=== PATIENT | female | born 1965 | race Caucasian/White ===

== ENCOUNTER 2017-03-12 05:47 | Outpatient (CLI) | payer OTHER ==
[~2017-03-12] VITALS: Ht 167.6 cm; Wt 86.2 kg
[~2017-03-12 05:47] MED LIST: DCS100C PO; ESCI20TA2 PO; HYDR-3583 PO; LUTERA PO; WHEA730P PO
[2017-03-12] MEDS ORDERED: CITA40TA19 PO (15:19)
== END 2017-03-12 15:22 ==
LOC: PREOP 05:47
PROVIDERS: ATTEND Internal Medicine
DX: Z01.818 Encounter for other preprocedural examination (principal); Z12.11 Encounter for screening for malignant neoplasm of colon

== ENCOUNTER 2017-03-14 09:13 | Day surgery (SDC) | payer OTHER ==
[~2017-03-14] VITALS: Ht 167.6 cm; Wt 86.2 kg
[~2017-03-14 09:13] MED LIST changes: +CITA40TA19 PO
[2017-03-14] MEDS ORDERED: 1/2 NS IV SOLUTION 1,000 ML IV STA (09:18)
[2017-03-14] MEDS ORDERED: FLUMAZENIL (ROMAZICON) 0.1 MG/ML 5 ML VIAL INJ PRN (09:30)
[2017-03-14] MEDS ORDERED: LIDOCAINE JELLY 2% (XYLOCAINE) 5 ML TUBE MM PRN (09:30)
[2017-03-14] MEDS ORDERED: NALOXONE 0.4 MG/ML 1 ML (NARCAN) VIAL IVP PRN (09:30)
[2017-03-14 09:40] VITALS: BP 108/65
--- NOTE | 2017-03-14 09:43 | Pre-Op Note & Conscious Sedat ---
Pre-Operative Progress Note H&P Reviewed The H&P was reviewed, patient examined and no changes noted. Date H&P Reviewed: March 14, 2017 Time H&P Reviewed: 09:43 Conscious Sedation Pre-Proced ASA Class: 2 Airway Mallampati Classification: (port gamble appropriate class) I. II. III, IV Lungs Heart ASA score ASA 1: a normal healthy patient ASA 2: a patient with a mild systemic disease (mid diabetes, controlled hypertension, obesity ASA 3: a patient with a severe systemic disease that limits activity (angina , COPD, prior Myocardial infarction) ASA 4: a patient with an incapacitating disease that is a constant threat to life (CHF, renal failure) ASA 5: a moribund patient not expected to survive 24 hrs. (ruptured aneurysm) ASA 6: a declared brain patient whose organs are being harvested. For emergent operations, add the letter E after the classification Grade 2 Sedation Plan: Analgesia, Amnesia, Plan communicated to team members, Discussed options with patient/fam, Discussed risks with patient/fam Note The patient is an appropriate candidate to undergo the planned procedure, sedation, and anesthesia. The patient immediately re-assessed prior to indication. ADAN BARTHOLOMEW MD March 14, 2017 09:43
[2017-03-14] MEDS ORDERED: MIDAZOLAM 2 MG/2 ML (VERSED) VIAL ONE ×3 (09:50)
[2017-03-14] MEDS ORDERED: fentaNYL INJECTION 100 MCG/2 ML AMP ONE (09:50)
[2017-03-14] MEDS ORDERED: LIDOCAINE JELLY 2% (XYLOCAINE) 5 ML TUBE ONE (09:51)
[2017-03-14] MEDS: fentaNYL INJECTION 100 MCG/2 ML AMP IVP PRN ×2 (10:03→10:15)
[2017-03-14] MEDS: MIDAZOLAM 2 MG/2 ML (VERSED) VIAL IVP PRN ×2 (10:05→10:20)
[2017-03-14 10:35] VITALS: BP 126/74
[2017-03-14 11:05] VITALS: BP 116/71
[2017-03-14 11:25] VITALS: BP 116/71
--- NOTE | 2017-03-14 14:43 | OPERATIVE REPORT ---
DATE OF SERVICE: COLONOSCOPY SUMMARY INDICATION FOR THE PROCEDURE: Screening colonoscopy. DESCRIPTION OF PROCEDURE: The patient was placed in the left lateral decubitus position. Prior to undergoing colonoscopy, digital rectal evaluation performed. Anal sphincter tone was normal and perianal reflex was intact. Digital evaluation was compatible with an anterior rectocele. No other abnormalities were noted, visual inspection, anal canal or digital rectal vault. The colonoscope was then inserted into the rectum and under direct visualization, advanced to the cecum. The cecum was identified by identification of the S valve and cecal strap. Photograph documentation was obtained. Under careful observation, the colonoscope was withdrawn. FINDINGS: There was no evidence for internal, external hemorrhoids. Present in the distal rectum was a diminutive hyperplastic-appearing polyp measuring about 2 mm in size. It was photographed and biopsied and ablated with no subsequent blood loss. The remainder of the rectum was unremarkable. One small sigmoid diverticulum was present without evidence for haustral hypertrophy or inflammatory change. A sigmoid colonoscope that was unremarkable. The descending colon, transverse colon, ascending colon and cecum were unremarkable. ASSESSMENT: 1. Diminutive hyperplastic-appearing polyp was removed from the rectum via hot forceps with no evidence for bleeding. As long as there is no surprise on the pathology report, we will advocate consideration for repeat screening colonoscopy in 10 years. 2. One small diverticulum was noted in the sigmoid colon, and digital rectal evaluation was compatible with an anterior rectocele. The patient reports no symptoms. I thank you for the referral. Job ID: [id number] DocumentID: [id number] Dictated Date: 03/14/2017 11:04:21 Blower And Compressor Assembler Date: 03/14/2017 13:21:30 Dictated By: ADAN BARTHOLOMEW MD [facility]
--- NOTE | 2017-03-19 23:11 | HISTORY AND PHYSICAL ---
DATE OF SERVICE: 03/14/2017 HISTORY OF PRESENT ILLNESS: The patient is a 51-year-old white female referred for screening colonoscopy by Dr. Jordan. She is deemed to be of average risk as she is not aware of any family history for colon cancer or colon polyps. She reports that she has been feeling well and has noted no melena or bright red blood per rectum. She denies abdominal pain. PAST MEDICAL HISTORY: Significant for hepatitis C with virologic cure post interferon-based therapy a little over 4 years ago. She reports no other significant past medical history. PAST SURGICAL HISTORY: She underwent hemorrhoidectomy in 2010, uterine ablation for dysfunctional bleeding in 2011, she had a ganglionic cyst removed in 1997 and fibroid adenoma removal from the right breast in 1997. She underwent in 1987 and liver biopsy in 2012. 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 She reports no past smoking history and rare to moderate alcohol consumption. ALLERGIES: AMOXICILLIN IN THE FORM OF RASH AND NOT ANAPHYLAXIS. FAMILY HISTORY: Father has history of heart disease and stroke. She has 1 sister with diabetes and her father also had diabetes. Mother has history of hypertension. Again no family history for colorectal carcinoma. PHYSICAL EXAMINATION: GENERAL: White female, alert, well kempt, in no acute distress. VITAL SIGNS: Blood pressure 116/74. CHEST: Clear. CARDIOVASCULAR: Regular rate and rhythm without murmur, S3 or S4. ABDOMEN: Soft, supple without mass, organomegaly or tenderness. EXTREMITIES: Reveal no cyanosis, clubbing or edema. HEENT: Oropharyngeal examination reveals Mallampati class I configuration with no erythema and good dentition. ASSESSMENT: The patient is set up for screening colonoscopy on 03/14/2017. Prep instructions and Suprep kit were given and questions were answered. Electronic medical record was reviewed. CARE TIME SPENT: I spent 45 minutes of my time with another 15 minutes of staff time setting up colonoscopy and going over prep instructions. I thank you for the referral of this pleasant lady. Job ID: [id number] DocumentID: [id number] Dictated Date: 03/07/2017 10:59:12 Data Processing Control Clerk Date: 03/07/2017 11:25:17 Dictated By: ADAN BARTHOLOMEW MD
== END 2017-03-14 11:25 | disposition home or self-care (01) ==
LOC: ENDO 09:13
PROVIDERS: ATTEND Internal Medicine
DX: Z12.11 Encounter for screening for malignant neoplasm of colon (principal); K62.1 Rectal polyp; K57.30 Diverticulosis of large intestine without perforation or abscess without bleeding; Z86.19 Personal history of other infectious and parasitic diseases
CPT/HCPCS: 88305

== ENCOUNTER 2017-05-04 15:58 | Emergency (ER) | payer OTHER ==
[~2017-05-04] VITALS: Ht 167.6 cm; Wt 86.2 kg
[2017-05-04] MEDS ORDERED: morphine INJ 10 MG/ML 1ML (SYR OR VIAL) ONE (15:59)
--- NOTE | 2017-05-04 16:14 | ED Fall/Injury ---
General Chief Complaint: Trauma-Non Activation Stated Complaint: FALL/R ARM INJ Source: patient Exam Limitations: no limitations History of Present Illness Time seen by provider: 16:11 Initial Comments ER with reports of a fall. Patient was working in a closet that she and her are working on remodeling. She fell through it following a total of 6 feet After falling through the floor into the crawl space of the house. She has some abrasions to the right lateral thigh and lower leg into the medial left lower leg. She has an abrasion to the right elbow as well as pain and deformity to the right upper arm. She has a small abrasion to the right lateral ear. Denies neck pain or loss of consciousness. She recalls all events. Occurred: just prior to arrival Severity: moderate Injuries/Pain Location: upper extremity Context: other (fell through the floor) Loss of Consciousness: no loss of consciousness Allergies and Home Medications Allergies Coded Allergies: Amoxicillin (Unverified Allergy, HIVES/SWELLING, 10/24/10) Home Medications Citalopram Hydrobromide 40 Mg Tablet, 40 MG PO DAILY, (Reported) Docusate Sodium 100 Mg Capsule, 100 MG PO BID for 30 Days Prescribed by: SLOAN CARPENTER on 05/04/171743 Oxycodone HCl/Acetaminophen 1 Each Tablet, 1 EACH PO Q4H PRN for PAIN-MODERATE TO SEVERE, #60 Prescribed by: SLOAN CARPENTER on 05/04/171743 Constitutional: see HPI Eyes: No Symptoms Reported Ears, Nose, Mouth, Throat: no symptoms reported Respiratory: no symptoms reported Cardiovascular: no symptoms reported Genitourinary: no symptoms reported Musculoskeletal: see HPI Skin: no symptoms reported Psychiatric/Neurological: No Symptoms Reported Past Vochtne-Pddple-Rmgppr Hx Patient Social History Recent Foreign Travel: No Contact w/Someone Who Travel: No Recent Hopitalizations: No Seasonal Allergies Seasonal Allergies: Yes Surgeries HX Surgeries: Yes (UTERINE ABLATION, ORAL SX, CYST FROM WRIST, HEMORRHOIDECTOMY , BREAST) Surgeries: Section Respiratory Hx Respiratory Disorders: Yes Respiratory Disorders: Sleep Apnea Cardiovascular Hx Cardiac Disorders: No Neurological Hx Neurological Disorders: No Reproductive System Hx Reproductive Disorders: No Genitourinary Hx Genitourinary Disorders: No Gastrointestinal Hx Gastrointestinal Disorders: No Musculoskeletal Hx Musculoskeletal Disorders: No Endocrine Hx Endocrine Disorders: No HEENT HX ENT Disorders: No Cancer Hx Cancer: No Psychosocial Hx Psychiatric Problems: No Integumentary HX Skin/Integumentary Disorder: No Blood Transfusions Hx Blood Disorders: No Physical Exam Vital Signs Vital Sign - Last 12Hours 05/04/17 16:00 Temp 97.6 Pulse 82 Resp 18 B/P (MAP) 124/72 Pulse Ox 98 O2 Delivery Room Air Capillary Refill : General Appearance: WD/WN, no apparent distress HEENT: PERRL/EOMI, normal ENT inspection, other (small actively bleeding laceration to the right ear) Neck: non-tender, full range of motion, No tender lateral, No tender midline, other (no neck pain) Cardiovascular: regular rate, rhythm, no murmur Respiratory: lungs clear, normal breath sounds, no respiratory distress, no accessory muscle use Gastrointestinal: normal bowel sounds, non tender, soft, No guarding, No rebound, No tenderness, other (no sign of chest or abdomen injury. No abrasions or ecchymosis or erythema. No tenderness to palpation.) Extremities: normal capillary refill, other (Limited range of motion secondary to pain swelling and deformity to the right upper arm. She remains neurovascularly intact distal to this with a strong radial pulse, normal sensation in the fingertips, capillary refill of the fingertips less than 3 seconds inability to flex and extend the fingertips. She complains of pain to the right middle finger but there is no deformity or swelling. Denies pain to the rest of the hand of the wrist. The right forearm is without significant pain. There is an abrasion to the right elbow. She has abrasions to the bilateral lower extremities. To the medial aspect of the left lower leg and the lateral aspect of the right lower leg and right thigh there are abrasions. However she is ambulatory to room 6.) Neurologic/Psychiatric: alert, normal mood/affect, oriented x 3 [place] Coma Score Best Eye Response: (4) Open Spontaneously Best Verbal Response: (5) Oriented Best Motor Response: (6) Obeys Commands Bobbi Total: 15 Progress/Results/Core Measures Results/Orders Lab Results Laboratory Tests Test 05/04/17 16:08 Range/Units White Blood Count 6.9 4.3-11.0 10^3/uL Red Blood Count 4.78 4.35-5.85 10^6/uL Hemoglobin 13.1 11.5-16.0 G/DL Hematocrit 40 35-52 % Mean Corpuscular Volume 85 80-99 FL Mean Corpuscular Hemoglobin 27 25-34 PG Mean Corpuscular Hemoglobin Concent 32 32-36 G/DL Red Cell Distribution Width 13.3 10.0-14.5 % Platelet Count 241 130-400 10^3/uL Mean Platelet Volume 10.5 H 7.4-10.4 FL Sodium Level 139 135-145 MMOL/L Potassium Level 3.9 3.6-5.0 MMOL/L Chloride Level 105 98-107 MMOL/L Carbon Dioxide Level 21 21-32 MMOL/L Anion Gap 13 5-14 MMOL/L Blood Urea Nitrogen 21 H 7-18 MG/DL Creatinine 0.82 0.60-1.30 MG/DL Estimat Glomerular Filtration Rate > 60 BUN/Creatinine Ratio 26 Glucose Level 116 H 70-105 MG/DL Calcium Level 9.4 8.5-10.1 MG/DL Total Bilirubin 0.2 0.1-1.0 MG/DL Aspartate Amino Transf (AST/SGOT) 23 5-34 U/L Alanine Aminotransferase (ALT/SGPT) 25 0-55 U/L Alkaline Phosphatase 68 40-136 U/L Total Protein 7.6 6.4-8.2 GM/DL Albumin 4.2 3.2-4.5 GM/DL My Orders Orders - SLOAN CARPENTER APRN Morphine Injection (Morphine Injection (05/04/17 15:59) Chest 1 View, Ap/Pa Only (05/04/17 16:09) Humerus, Right, 2 Views (05/04/17 16:09) Dipht,Pertuss(Acell),Tet Adult (Boostrix (05/04/17 16:15) Morphine Injection (Morphine Injection (05/04/17 16:15) Morphine Injection (Morphine Injection (05/04/17 16:15) Cbc No Diff (05/04/17 16:19) Saline Lock/Iv-Start (05/04/17 16:19) Comprehensive Metabolic Panel (05/04/17 16:19) Morphine Injection (Morphine Injection (05/04/17 16:45) Forearm, Right, 2 Views (05/04/17 16:51) Rx-Oxycodone/Apap 5-325 Mg (Rx-Percocet (05/04/17 17:00) Fentanyl Injection (Sublimaze Injection (05/04/17 17:00) Medications Given in ED Current Medications Medications Dose Ordered Sig/Anders Route Start Time Stop Time Status Last Admin Dose Admin Diphtheria/ Tetanus/Acell Pertussis 0.5 ml ONCE ONCE IM 05/04/17 16:15 05/04/17 16:16 DC 05/04/17 16:21 0.5 ML Fentanyl Citrate 75 mcg ONCE ONCE IVP 05/04/17 17:00 05/04/17 17:01 DC 05/04/17 17:02 75 MCG Morphine Sulfate 5 mg ONCE ONCE IVP 05/04/17 16:15 05/04/17 16:16 DC 05/04/17 16:05 5 MG Morphine Sulfate 5 mg ONCE ONCE IVP 05/04/17 16:15 05/04/17 16:16 DC 05/04/17 16:19 5 MG Morphine Sulfate 5 mg ONCE ONCE IVP 05/04/17 16:45 05/04/17 16:46 DC 05/04/17 16:35 5 MG Oxycodone/ Acetaminophen 1 ea Q4H PRN PO 05/04/17 17:00 05/04/17 17:39 1 EA Vital Signs/I&O Vital Sign - Last 12Hours 05/04/17 16:00 Temp 97.6 Pulse 82 Resp 18 B/P (MAP) 124/72 Pulse Ox 98 O2 Delivery Room Air Diagnostic Imaging Diagonstic Imaging: Xray Plain Films/CT/US/NM/MRI: chest Comments O NAME: CONSTANCE LOPES [facility] REC#: [id number] PT STATUS: REG ER : 1965 PHYSICIAN: SLOAN CARPENTER APRN ADMIT DATE: 05/04/17/ER Draft Date of Exam:05/04/17 CHEST 1 VIEW, AP/PA ONLY EXAMINATION: Portable erect AP chest at 4:20 p.m. INDICATION: Trauma to right humerus. COMPARISON: There are no prior studies available for comparison. FINDINGS: The heart size is within normal limits. The lungs are clear. There is no evidence for failure, pneumonia, or for a pleural effusion. There is no sign of pneumothorax or a pulmonary contusion either. The mediastinum is not widened. The osseous structures are intact. The fracture of the mid shaft of the right humerus seen on the right humerus exam performed in conjunction with this study is not included on this exam. IMPRESSION: There is no evidence for an acute cardiopulmonary abnormality. Dictated on workstation # [id number] Dict: 05/04/17 1639 Trans: 05/04/17 1656 [id number] Interpreted by: ROSANNE DE LEÓN MD Electronically signed by: NAME: CONSTANCE LOPES [facility] REC#: [id number] PT STATUS: REG ER : 1965 PHYSICIAN: SLOAN CARPENTER BRAND ADVISOR ADMIT DATE: 05/04/17/ER Draft Date of Exam:05/04/17 HUMERUS, RIGHT, 2 VIEWS INDICATION: Fall, right arm pain. COMPARISON: None. EXAMINATION: Two views of the right humerus were obtained. FINDINGS: Minimally displaced midshaft humeral fracture. Joint spaces are normal. No foreign body. IMPRESSION: Mid right shaft humeral fracture with some displacement. Dictated on workstation # [id number] Dict: 05/04/17 1639 Trans: 05/04/17 1700 [facility] [id number] Interpreted by: JOSE OJEDA Electronically signed by: Departure Communication Progress Notes I did discuss the case with Dr. Nance who is on-call for orthopedic surgery. He agrees with a sugar tong splint and sling and follow-up with him in the office. Impression Impression: Primary Impression: Transverse fracture of shaft of humerus Disposition: 01 HOME, SELF-CARE Condition: Stable Departure-Patient Inst. Decision time for Depature: 16:56 Referrals: QUE WELLS MD, HOLLY A MD (PCP/Family) Primary Care Physician CARMEN ESTES MD,MARLEN DOHERTY MD, ROBERT F DO TOMA, PAUL W DO ZAFUTA, MICHAEL P MD Patient Instructions: Upper Arm Fracture Add. Discharge Instructions: 1. Use an ice pack to the upper arm 2-3 hours at a time then off for 30 minutes to an hour for the next 3 days 2. You'll be much more comfortable if he sleep in a somewhat upright position such as in a recliner or with several pillows behind you in bed 3. I spoke with the orthopedic surgeon Dr. Nance today and he would like you to call his office tomorrow morning to make an appointment to be seen preferably within the next week whenever they can determine 4. Keep the splint on at all times and keep it dry at all times. You may take the sling (blue Velcro piece) off today and then put a trash bag over the arm taping and around the upper arm so that the splint does not get water on it. 5. Return to ER for any intolerable pain, tingling or loss of sensation of the fingertips or any other concerns 6. Take the Colace (docusate sodium) stool softener one capsule 2 times a day. The pain medication can be constipating. If you find your self constipated despite taking stool softener, purchase MiraLAX [id number] at any pharmacy and use either one packet or 1 Capful dissolved in a large glass of water daily for laxative purposes. All discharge instructions reviewed with patient and/or family. Voiced understanding. Scripts Oxycodone HCl/Acetaminophen (Percocet 5-325 mg Tablet) 1 Each Tablet 1 EACH PO Q4H Y for PAIN-MODERATE TO SEVERE, #60 TAB Prov: SLOAN CARPENTER APRN 05/04/17 Docusate Sodium (Colace) 100 Mg Capsule 100 MG PO BID for 30 Days, CAP Prov: SLOAN CARPENTER APRN 05/04/17 Work/School Note: Work Release Form Date Seen in the Emergency Department: May 04, 2017 Return to Work: May 10, 2017 Restrictions: Need Release from Doctor SLOAN CARPENTER APRN May 04, 2017 16:14
[2017-05-04] MEDS ORDERED: TETANUS,DIPTH,PERTUSS P/F (BOOSTRIX) 0.5 ML VIAL IM ONE (16:15)
[2017-05-04] MEDS ORDERED: morphine INJ 10 MG/ML 1ML (SYR OR VIAL) IVP ONE ×3 (16:15→16:45)
[2017-05-04 16:30] LABS: MEAN PLATELET VOLUME 10.5 FL (7.4-10.4); RED BLOOD COUNT 4.78 10^6/uL (4.35-5.85); RED CELL DISTRIBUTION WIDTH 13.3 % (10.0-14.5); WHITE BLOOD COUNT 6.9 10^3/uL (4.3-11.0)
[2017-05-04 16:42] LABS: ALANINE AMINOTRANSFERASE 25 U/L (0-55); ALBUMIN 4.2 GM/DL (3.2-4.5); ANION GAP 13 MMOL/L (5-14); ASPARTATE AMINO TRANSFERASE 23 U/L (5-34); BILIRUBIN,TOTAL 0.2 MG/DL (0.1-1.0); BLOOD UREA NITROGEN 21 MG/DL (7-18); BUN/CREATININE RATIO 26; CALCIUM 9.4 MG/DL (8.5-10.1); CARBON DIOXIDE 21 MMOL/L (21-32); CHLORIDE 105 MMOL/L (98-107); CREATININE SERUM 0.82 MG/DL (0.60-1.30); GFR ESTIMATED > 60; GLUCOSE 116 MG/DL (70-105); POTASSIUM 3.9 MMOL/L (3.6-5.0); SODIUM 139 MMOL/L (135-145); TOTAL PROTEIN 7.6 GM/DL (6.4-8.2)
--- NOTE | 2017-05-04 16:56 | Diagnostic Imaging Report ---
EXAMINATION: Portable erect AP chest at 4:20 p.m. INDICATION: Trauma to right humerus. COMPARISON: There are no prior studies available for comparison. FINDINGS: The heart size is within normal limits. The lungs are clear. There is no evidence for failure, pneumonia, or for a pleural effusion. There is no sign of pneumothorax or a pulmonary contusion either. The mediastinum is not widened. The osseous structures are intact. The fracture of the mid shaft of the right humerus seen on the right humerus exam performed in conjunction with this study is not included on this exam. IMPRESSION: There is no evidence for an acute cardiopulmonary abnormality. Dictated by: Dictated on workstation # [id number]
[2017-05-04] MEDS ORDERED: fentaNYL INJECTION 100 MCG/2 ML AMP IVP ONE (17:00)
[2017-05-04] MEDS ORDERED: RX-OXYCODONE/APAP 5-325 MG #4 TAB PK PO PRN (17:00)
--- NOTE | 2017-05-04 17:01 | Diagnostic Imaging Report ---
INDICATION: Fall, right arm pain. COMPARISON: None. EXAMINATION: Two views of the right humerus were obtained. FINDINGS: Minimally displaced midshaft humeral fracture. Joint spaces are normal. No foreign body. IMPRESSION: Mid right shaft humeral fracture with some displacement. Dictated by: Dictated on workstation # [id number]
--- NOTE | 2017-05-04 17:19 | Diagnostic Imaging Report ---
EXAM: FOREARM, RIGHT, 2 VIEWS INDICATION: Fall 6 feet. COMPARISON: None. FINDINGS: No fracture or malalignment. Soft tissue shadows are unremarkable. IMPRESSION: Negative right forearm radiographs. Dictated by: Dictated on workstation # [id number]
[2017-05-04] MEDS ORDERED: DOCU-143 PO (17:44)
[2017-05-04] MEDS ORDERED: OXYC-197 PO (17:44)
[2017-05-04 17:51] VITALS: BP 158/74
== END 2017-05-04 17:53 | disposition home or self-care (01) ==
LOC: EDUNIT# 15:58 → ER 15:59
DX: S42.321A Displaced transverse fracture of shaft of humerus, right arm, initial encounter for closed fracture (principal); S70.311A Abrasion, right thigh, initial encounter; S80.812A Abrasion, left lower leg, initial encounter; S80.811A Abrasion, right lower leg, initial encounter; Z90.49 Acquired absence of other specified parts of digestive tract; Z98.890 Other specified postprocedural states; W13.3XXA Fall through floor, initial encounter; Y93.E9 Activity, other interior property and clothing maintenance; Y92.019 Unspecified place in single-family (private) house as the place of occurrence of the external cause
CPT/HCPCS: 29105; 36415; 71010; 73060; 73090; 80053; 85027; 90471; 90715; 96374; 96375

== ENCOUNTER → 2017-09-25 | Outpatient (CLI) | payer OTHER ==
[~2017-09-25] MED LIST changes: +DOCU-143 PO; +OXYC-197 PO
--- NOTE | 2017-09-26 11:05 | Diagnostic Imaging Report ---
EXAM: Bilateral screening mammogram 2D views with tomosynthesis COMPARISON: The current study was also evaluated with a Computer Aided Detection (CAD) system. INDICATION: Screening. No current complaints stated on the questionnaire. COMPARISON: 05/31/2016. FINDINGS: The breasts are composed of heterogeneously dense parenchyma which may decrease mammographic sensitivity. There is a focal asymmetry with architectural distortion seen along the medial aspect of the right breast. The left breast demonstrates no mass, architectural distortion or suspicious calcification. Benign-appearing scattered calcifications are seen. IMPRESSION: Focal compression views and ultrasound evaluation for focal asymmetry with architectural distortion of the medial aspect of the right breast recommended. BI-RADS 0. ACR BI-RADS Category 0: Incomplete. (Needs additional imaging evaluation). Result letter will be mailed to the patient. Note: At least 10% of breast cancer is not imaged by mammography. Dictated by: Dictated on workstation # [id number]
== END ==
LOC: RAD 08:20
PROVIDERS: ATTEND Nurse Practitioner
DX: Z12.31 Encounter for screening mammogram for malignant neoplasm of breast (principal)

== ENCOUNTER → 2017-10-01 | Outpatient (CLI) | payer OTHER ==
--- NOTE | 2017-10-01 09:05 | Diagnostic Imaging Report ---
EXAMINATION: Right breast diagnostic mammogram with tomography evaluation. CAD is utilized. The current study was also evaluated with a Computer Aided Detection (CAD) system. INDICATION: Focal asymmetry with architectural distortion in the upper medial aspect of the right breast. FINDINGS: There is persistent architectural distortion with compression magnification views with no defined underlying mass however seen. This is located in the upper medial aspect of the right breast. IMPRESSION: Persistent architectural distortion in the upper medial aspect of the right breast. Ultrasound evaluation pending. BI-RADS 0. ACR BI-RADS Category 0: Incomplete. (Needs additional imaging evaluation). Result letter will be mailed to the patient. Note: At least 10% of breast cancer is not imaged by mammography. Dictated by: Dictated on workstation # [id number]
--- NOTE | 2017-10-01 09:37 | Diagnostic Imaging Report ---
EXAMINATION: Right breast ultrasound. INDICATION: Architectural distortion in the upper medial aspect of the right breast. FINDINGS: At the 2 o'clock zone 5 cm from the nipple, there is an irregular hypoechoic mass with associated shadowing measuring 1.2 x 1.5 x 1 cm. There is no internal vascularity with color Doppler demonstrated. The other quadrants and retroareolar region of the right breast as well as the axilla were scanned with no other lesions identified. IMPRESSION: Suspicious mass in the right breast 2 o'clock zone measuring 1.5 cm in size. An ultrasound guided biopsy is recommended. The findings and recommendations were discussed personally with the patient just before this dictation. The report was faxed to the office of ZAHRA Hood, by JANETT@9:10 AM. ACR BI-RADS Category 4B: Intermediate suspicion of malignancy. Result letter will be mailed to the patient. Dictated by: Dictated on workstation # [id number]
== END ==
LOC: RAD 08:00
PROVIDERS: ATTEND Nurse Practitioner
DX: N64.89 Other specified disorders of breast (principal); N63.11 Unspecified lump in the right breast, upper outer quadrant
CPT/HCPCS: 76641

== ENCOUNTER → 2017-10-02 | Outpatient (CLI) | payer OTHER ==
[~2017-10-02] VITALS: Ht 167.6 cm; Wt 86.2 kg
[~2017-10-02] MED LIST changes: +LIDOCAINE 1% INJ 50 ML (XYLOCAINE) VIAL IJ ONE
[2017-10-02 07:58] VITALS: BP 124/64
--- NOTE | 2017-10-02 12:13 | Diagnostic Imaging Report ---
EXAM: Right breast ultrasound INDICATION: Hypoechoic lesion seen on ultrasound at the 2 o'clock zone and architectural distortion seen on mammography in preparation for biopsy. We started preparing for biopsy and I scanned the patient and asked her again if she had any trauma or procedure previously. Although she did not mention breast surgery when she was worked up with the diagnostic mammogram and ultrasound, at this time the patient indicated that she did have surgery in the upper medial aspect of the right breast. When examined there is a subtle skin scar seen at the site of surgery and this appears to match the area of abnormality. IMPRESSION: The patient now provided additional history of previous surgery in the upper medial aspect of the right breast. The area of abnormality at the 2 o'clock zone is favored to be related to surgical scarring. This is the first time the patient has had a mammogram with tomography, which demonstrated architectural distortion that could have been stable. No prior tomography evaluation to compare is available. Followup right breast ultrasound and mammogram in 4 months is recommended to ensure no adverse development. BI-RADS 3. ACR BI-RADS Category 3: Probably benign findings. Result letter will be mailed to the patient. Note: At least 10% of breast cancer is not imaged by mammography. Dictated by: Dictated on workstation # [id number]
== END ==
LOC: RAD 07:04
PROVIDERS: ATTEND Nurse Practitioner
DX: R92.8 Other abnormal and inconclusive findings on diagnostic imaging of breast (principal); Z98.890 Other specified postprocedural states

== ENCOUNTER 2018-01-22 05:39 | Outpatient (CLI) | payer OTHER ==
[~2018-01-22] VITALS: Ht 167.6 cm; Wt 86.2 kg
[~2018-01-22 05:39] MED LIST changes: -LIDOCAINE 1% INJ 50 ML (XYLOCAINE) VIAL IJ ONE
== END 2018-01-22 16:00 ==
LOC: PREOP 05:39
PROVIDERS: ATTEND Surgery
DX: Z01.818 Encounter for other preprocedural examination (principal); K21.9 Gastro-esophageal reflux disease without esophagitis; R13.10 Dysphagia, unspecified; R10.13 Epigastric pain; Z88.1 Allergy status to other antibiotic agents

== ENCOUNTER 2018-01-29 07:23 | Day surgery (SDC) | payer OTHER ==
[~2018-01-29] VITALS: Ht 167.6 cm; Wt 86.2 kg
[2018-01-29] MEDS ORDERED: NS IV 500 ML 500 ML IV PRN (07:40)
[2018-01-29] MEDS ORDERED: NALOXONE 0.4 MG/ML 1 ML (NARCAN) VIAL IVP PRN (07:45)
[2018-01-29] MEDS ORDERED: FLUMAZENIL (ROMAZICON) 0.1 MG/ML 5 ML VIAL INJ PRN (07:45)
[2018-01-29] MEDS ORDERED: HURRICAINE EXT TUBE (BENZOCAINE) XX PRN (07:45)
[2018-01-29 08:00] VITALS: BP 109/64
[2018-01-29] MEDS ORDERED: MIDAZOLAM 2 MG/2 ML (VERSED) VIAL ONE ×3 (08:20→08:21)
[2018-01-29] MEDS ORDERED: fentaNYL INJECTION 100 MCG/2 ML AMP ONE (08:20)
[2018-01-29] MEDS ORDERED: HURRICAINE EXT TUBE (BENZOCAINE) ONE (08:21)
[2018-01-29] MEDS: fentaNYL INJECTION 100 MCG/2 ML AMP IVP PRN ×2 (08:30→08:34)
[2018-01-29] MEDS: MIDAZOLAM 2 MG/2 ML (VERSED) VIAL IVP PRN ×2 (08:32→08:35)
--- NOTE | 2018-01-29 08:47 | History & Physicial ---
History of Present Illness History of Present Illness Reason for visit/HPI to undergo an upper endoscopy with possible endoscopic balloon dilatation, to address ongoing dysphagia. Date of Admission 01/29/18 Date Seen by Provider: Jan 29, 2018 Time Seen by Provider: 07:55 I consulted on this patient on 01/29/18 08:44 Attending Physician Mira Hernandez MD Admitting Physician Beti Jordan MD Consult Allergies and Home Medications Allergies Coded Allergies: amoxicillin (Unverified Allergy, Unknown, HIVES/SWELLING, 05/21/17) Home Medications Citalopram Hydrobromide 40 Mg Tablet, 40 MG PO DAILY, (Reported) Patient Home Medication List Home Medication List Reviewed: Yes Past Onywfuy-Cmddyd-Nocrwh Hx Patient Social History Marrital Status: Employed/Student: employed Alcohol Use: Denies Use Recreational Drug Use: No Smoking Status: Former Smoker Former Smoker, Quit: Oct 20, 1986 Type Used: Cigarettes Recent Foreign Travel: No Contact w/other who traveled: No Recent Hopitalizations: No Recent Infectious Disease Expo: No Immunizations Up To Date Tetanus Booster (TDap): Unknown Date of Influenza Vaccine: Jun 24, 2017 Seasonal Allergies Seasonal Allergies: Yes Surgeries Yes (UTERINE ABLATION, ORAL SX, CYST FROM WRIST, HEMORRHOIDECTOMY, BREAST) Section Respiratory Yes Currently Using CPAP: Yes Cardiovascular No Neurological No Reproductive System Hx Reproductive Disorders: No Sexually Transmitted Disease: No HIV/AIDS: No [employer] History: Menopausal Gastrointestinal No Gastroesophageal Reflux Musculoskeletal No Endocrine History of Endocrine Disorders: No Cancer No Psychosocial History of Psychiatric Problem: No Integumentary History of Skin or Integumenta: No Blood Transfusions History of Blood Disorders: No Constitutional: no symptoms reported EENTM: no symptoms reported Respiratory: no symptoms reported Cardiovascular: no symptoms reported Gastrointestinal: see HPI Genitourinary: no symptoms reported Musculoskeletal: no symptoms reported Skin: no symptoms reported Psychiatric/Neurological: No Symptoms Reported Physical Exam Vital Signs Vital Signs - First Documented 01/29/18 08:00 Temp 98.2 Pulse 62 Resp 18 B/P (MAP) 109/64 (79) Pulse Ox 95 O2 Delivery Room Air Capillary Refill : General Appearance: No Apparent Distress Neck: Normal Inspection Respiratory: Lungs Clear Cardiovascular: Regular Rate, Rhythm Gastrointestinal: Non Tender, Soft Back: Normal Inspection Extremity: Normal Inspection Neurologic/Psychiatric: Alert, Oriented x3 Skin: Warm/Dry Assessment/Plan Assessment and Plan lady with progressive dysphagia. Esophageal stricture versus dysmotility. If stricture identified, endoscopic balloon dilatation would be performed. Have discussed the procedure without and highlighted the risk of iatrogenic esophageal perforation. She did be normal, she would undergo esophageal manometry subsequently. Admission Diagnosis Admission Status: Other (Outpt Proc) MIRA HERNANDEZ MD Jan 29, 2018 8:47 am
--- NOTE | 2018-01-29 08:52 | Endo Procedure Record ---
Endo Procedure Report Date of Procedure Last Colonoscopy: Yes (unsure) Jan 29, 2018 Surgeon (s) MIRA MOON MD Post Procedure/Op Diagnosis Esophagitis with esophageal stricture Distal gastric erosions. Procedure Performed EGD with antral biopsy for H. pylori Balloon dilatation of esophageal stricture Description of Procedure Anesthesia Type: Conscious Sedation Specimen(s) collected/removed antral mucosa for H. pylori Description of the Procedure Indication for the procedure: This lady came in for an endoscopic assessment of progressive dysphagia over the past several months. Should a stricture be found , the feasibility of performing endoscopic balloon dilatation and the associated risk of esophageal perforation were discussed with her. Should the endoscopic findings be normal, the requirement for esophageal manometry subsequently, was discussed. Informed consent was obtained. Description of the procedure: She was placed in left lateral decubitus position and her vital signs were monitored. Conscious sedation was achieved using Versed and fentanyl. The flexible gastroscope was introduced down the esophagus , past the stomach, into the proximal duodenum. Findings: Esophagus: Esophagitis with a concentric stricture at the distal end. It was dilated to 19 mm with a balloon Stomach: A few, shallow erosions without any contact bleeding were found at the antrum. Biopsy for H. pylori was obtained Duodenum: Normal. She tolerated the procedure well and was taken back to the nursing area in a stable condition. 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 Balloon dilatation completed. Incidental gastric erosions. Helicobacter status pending. Would initiate proton pump inhibitor therapy. Copies To: VENANCIO RAMIREZ MD, XAVIER M MD Jan 29, 2018 8:51 am
[2018-01-29] MEDS ORDERED: PANT40TA2 PO (08:53)
--- NOTE | 2018-01-29 08:54 | Discharge Inst-Simple/Standard ---
Discharge Inst-Standard Discharge Medications New, Converted or Re-Newed RX: RX on Chart Patient Instructions/Follow Up Plan of Care/Instructions/FU: F/U PRN Activity as Tolerated: Yes Discharge Diet: No Restrictions MIRA MOON MD Jan 29, 2018 8:54 am
[2018-01-29 09:20] VITALS: BP 108/62
--- NOTE | 2018-01-29 09:29 | Conscious Sedation/ASA ---
Conscious Sedation Pre-Proced Time Reviewed: 07:58 ASA Class: 2 Airway Mallampati Classification: ([place] appropriate class) I. II. III, IV Lungs Heart ASA score ASA 1: a normal healthy patient ASA 2: a patient with a mild systemic disease (mid diabetes, controlled hypertension, obesity ASA 3: a patient with a severe systemic disease that limits activity (angina , COPD, prior Myocardial infarction) ASA 4: a patient with an incapacitating disease that is a constant threat to life (CHF, renal failure) ASA 5: a moribund patient not expected to survive 24 hrs. (ruptured aneurysm) ASA 6: a declared brain patient whose organs are being harvested. For emergent operations, add the letter E after the classification Grade 1 Sedation Plan: Discussed options with patient/fam Note The patient is an appropriate candidate to undergo the planned procedure, sedation, and anesthesia. The patient immediately re-assessed prior to indication. MIRA MOON MD Jan 29, 2018 9:29 am
[2018-01-29 09:45] VITALS: BP 107/62
[2018-01-29 09:54] VITALS: BP 107/62
--- OUTSIDE RECORDS SUMMARY | 2018-01-29 12:52 | XMS REPORT | CCD ---
Author Author [facility] Organization [facility] Address [address] [place] [address] Phone Care Team Providers Care Potter Or Ceramic Artist Name Role Phone Beti Jordan PP Unavailable CCM Unavailable Summary Purpose Interface Exchange Insurance Providers Payer name Policy type / Coverage type Covered libertarian ID Effective Begin Date Effective End Date [facility] [id number] 2015 Unknown Family history Sister Diagnosis Age At Onset No Family Disease Entered N/A Mother Diagnosis Age At Onset Diabetes Unknown Father Diagnosis Age At Onset Cardiovascular disease Unknown Diabetes Unknown Son Diagnosis Age At Onset No Family Disease Entered N/A Father Diagnosis Age At Onset Heart disease Unknown Diabetes mellitus Type 2 Unknown Sister Diagnosis Age At Onset No Family Disease Entered N/A Daughter Diagnosis Age At Onset No Family Disease Entered N/A Son Diagnosis Age At Onset No Family Disease Entered N/A Sister Diagnosis Age At Onset *Denies any medical problems Unknown Mother Diagnosis Age At Onset Denies: Diabetes mellitus Type 2 Unknown Social History Social History Element Codes Description Effective Dates Marital status Unknown 09/09/2011 Employment Unknown Currently employed at [employer] 09/09/[address]: 545444712 Nonsmoker 09/09/[address]: 356777110 Never drinks alcohol 09/09/2011 Employment Unknown Currently employed billing dept [employer] 09/06/[address]: 011863499 Never smoker 09/06/[address]: 620073 Currently drinks alcohol couple times a year 09/06/2011 Has the patient ever used illegal drugs? Unknown Has never used illegal drugs 09/06/2011 Allergies, Adverse Reactions, Alerts Substance Reaction Codes Entered Date Inactivated Date Status PENICILLINS rash Unknown 09/03/2011 No Inactive Date Active Past Medical History Illness Codes Condition Status Onset Date Resolved Date Encounter for general adult medical examination without abnormal findings ICD-9: V70.0 ICD-10: Z00.00 Active 06/02/2016 Unknown Encounter for screening for malignant neoplasm of colon ICD-9: V76.51 ICD-10: Z12.11 Active 01/16/2017 Unknown Type 1 diabetes mellitus without complications ICD-9: 250.00 ICD-10: E10.9 Active 06/02/2016 Unknown Encounter for general adult medical examination with abnormal findings ICD-9: V70.0 ICD-10: Z00.01 Active 06/05/2016 Unknown Insect bite (nonvenomous), right lower leg, initial encounter ICD-9: 916.4 ICD-10: S80.861A Active 06/05/2016 Unknown Rash and other nonspecific skin eruption ICD-9: 782.1 ICD-10: R21 Active 06/05/2016 Unknown Dysuria ICD-9: 788.1 ICD-10: R30.0 Active 12/28/2015 Unknown Biceps tendonitis on right ICD-9: 726.12 Active 11/03/2014 Unknown ACUTE SINUSITIS ICD-9 : 461.9 Active 06/02/2014 Unknown ALLERGIC RHINITIS ICD- 9: 477.9 Active 06/02/2014 Unknown DIABETES TYPE II ICD-9 : 250.00 Active 05/16/2014 Unknown Hemorrhoids ICD-9: 455.6 Active 05/16/2014 Unknown Muscle ache ICD-9: 729.1 Active 05/16/2014 Unknown Rash ICD-9: 782.1 Active 05/16/2014 Unknown Hepatitis C antibody test positive ICD-9: 795.79 Active 2012 Unknown Blurred vision ICD-9: 368.8 Active 09/28/2012 Unknown Obesity ICD-9: 278.00 Active 08/25/2012 Unknown Anxiety Unknown Active 09/06/2011 Unknown Depression Unknown Active 09/06/2011 Unknown Diabetes Unknown Active 09/03/2011 Unknown Depression ICD-9: 311 Active 09/03/2011 Unknown Problems Condition Codes Effective Dates Condition Status Encounter for general adult medical examination without abnormal findings ICD-9: V70.0 ICD-10: Z00.00 06/02/2016 Active Encounter for screening for malignant neoplasm of colon ICD-9: V76.51 ICD-10: Z12.11 01/16/2017 Active Type 1 diabetes mellitus without complications ICD-9: 250.00 ICD-10: E10.9 06/02/2016 Active Encounter for general adult medical examination with abnormal findings ICD-9: V70.0 ICD-10: Z00.01 06/05/2016 Active Insect bite (nonvenomous), right lower leg, initial encounter ICD-9: 916.4 ICD-10: S80.861A 06/05/2016 Active Rash and other nonspecific skin eruption ICD-9: 782.1 ICD-10: R21 06/05/2016 Active Dysuria ICD-9: 788.1 ICD-10: R30.0 12/28/2015 Active Biceps tendonitis on right ICD-9: 726.12 11/03/2014 Active ACUTE SINUSITIS ICD-9 : 461.9 06/02/2014 Active ALLERGIC RHINITIS ICD- 9: 477.9 06/02/2014 Active DIABETES TYPE II ICD-9 : 250.00 05/16/2014 Active Hemorrhoids ICD-9: 455.6 05/16/2014 Active Muscle ache ICD-9: 729.1 05/16/2014 Active Rash ICD-9: 782.1 05/16/2014 Active Hepatitis C antibody test positive ICD-9: 795.79 01/18/2013 Active Blurred vision ICD-9: 368.8 09/28/2012 Active Obesity ICD-9: 278.00 08/25/2012 Active Anxiety Unknown 09/06/2011 Active Depression Unknown 09/06/2011 Active Diabetes Unknown 09/03/2011 Active Depression ICD-9: 311 09/03/2011 Active Medications Medication Codes Instructions Start Date Stop Date Status Fill Instructions Celexa 40 mg tablet RxNorm: 044921 Take one tablet by mouth daily in the evening 06/27/2017 No Stop Date Active No refills available Zyrtec-D 5 mg-120 mg tablet,extended release RxNorm: 2517394 Tablet(s) TAKE 1 TABLET BY MOUTH DAILY 06/05/20172016 Inactive Celexa 40 mg tablet RxNorm: 123014 1 Tablet(s) daily Take one tablet by mouth daily in the evening 03/12/2017 No Stop Date Active Celexa 40 mg tablet RxNorm: 329190 Take one tablet by mouth daily in the evening 11/28/2016 01/15/2017 Inactive No refills available Celexa 40 mg tablet RxNorm: 917427 Take one tablet by mouth daily in the evening 11/25/2016 01/15/2017 Inactive No refills available Celexa 40 mg tablet RxNorm: 476364 Take one tablet by mouth daily in the evening 11/25/2016 01/15/2017 Inactive No refills available glucosamine sulfate sodium Cl 1,000 mg tablet RxNorm: 070827 1 Tablet(s) PO BID 06/06/2016 No Stop Date Active triamcinolone acetonide 0.1 % topical cream RxNorm: 6938562 1 Application TOP BID 06/06/2016 06/15/2016 Inactive nystatin 100,000 unit/gram topical cream RxNorm: 763864 1 Application TOP BID 06/06/2016 06/15/2016 Inactive Zyrtec-D 5 mg-120 mg tablet,extended release RxNorm: 5040144 Tablet(s) TAKE 1 TABLET BY MOUTH DAILY 05/03/20162015 Inactive Celexa 40 mg tablet RxNorm: 960205 Tablet(s) TAKE ONE TABLET BY MOUTH EVERY EVENING 02/22/2016 11/17/2016 Inactive Bactrim DS 800 mg-160 mg tablet RxNorm: 373157 1 Tablet(s) PO BID 11/16/2015 11/22/2015 Inactive Zyrtec-D 5 mg-120 mg tablet,extended release RxNorm: 0404238 Tablet(s) TAKE 1 TABLET BY MOUTH DAILY 08/14/20152014 Inactive Celexa 40 mg tablet RxNorm: 044947 TAKE ONE TABLET BY MOUTH EVERY EVENING 06/06/2015 02/21/2016 Inactive Zyrtec-D 5 mg-120 mg tablet,extended release RxNorm: 8663208 TAKE 1 TABLET BY MOUTH DAILY 05/18/2015 06/09/2015 Inactive Zyrtec-D 5 mg-120 mg tablet,extended release RxNorm: 2933014 Tablet(s) TAKE 1 TABLET BY MOUTH ONCE DAILY 03/17/2015 Inactive (Response to an electronic controlled substance refill request - RxReferenceNumber: [id number]| 1|0|1) Zyrtec-D 5 mg-120 mg tablet,extended release RxNorm: 4420411 TAKE 1 TABLET BY MOUTH ONCE DAILY 01/02/2015 01/30/2015 Inactive (Response to an electronic controlled substance refill request - RxReferenceNumber: [id number]|1|0|1) prednisone 20 mg tablet RxNorm: 092999 3 Tablet(s) PO daily x 3 days 09/19/2014 09/18/2014 Inactive prednisone 20 mg tablet RxNorm: 471089 3 Tablet(s) PO daily x 3 days 09/19/2014 09/21/2014 Inactive Celexa 40 mg tablet RxNorm: 912709 1 Tablet(s) PO QPM 201301/15/2017 Inactive Zyrtec-D 5 mg-120 mg tablet,extended release RxNorm: 6095065 1 Tablet(s) PO daily 08/23/2014 01/02/2015 Inactive Zyrtec-D 5 mg-120 mg tablet,extended release RxNorm: 5614445 1 Tablet(s) PO daily 06/15/2014 07/14/2014 Inactive Zyrtec-D 5 mg-120 mg tablet,extended release RxNorm: 5437338 1 Tablet(s) PO daily 06/15/2014 06/14/2014 Inactive Kenalog 40 mg/mL suspension for injection RxNorm: 9518885 1 Milliliter(s) Inj 06/02/2014 06/02/2014 Inactive Bactrim DS 800 mg-160 mg tablet RxNorm: 184914 1 Tablet(s) PO BID 06/02/2014 06/11/2014 Inactive Celexa 40 mg tablet RxNorm: 646481 1 Tablet(s) PO QPM 201308/24/2014 Inactive Celexa 40 mg tablet RxNorm: 029238 1 Tablet(s) PO QPM 201305/15/2014 Inactive mupirocin 2 % topical ointment RxNorm: 642709 1 Application TOP TID 05/16/2014 05/22/2014 Inactive Proctofoam 1 % topical RxNorm: 254495 1 Application TOP BID 07/14/2014 Inactive Lexapro 20 mg tablet RxNorm: 817021 2 Tablet(s) PO daily 2 tablets by mouth daily 02/22/2013 02/16/2014 Inactive Lexapro 20 mg tablet RxNorm: 081801 1 Tablet(s) PO daily 201102/21/2013 Inactive Lexapro 20 mg tablet RxNorm: 238053 1 Tablet(s) PO daily 201008/24/2012 Inactive Lexapro 20 mg Tab RxNorm: 691576 1 Tablet(s) PO daily 201009/15/2011 Inactive multivitamin Cap RxNorm: 1 Capsule(s) PO daily No Start Date Active chromium 1 mg capsule RxNorm: 1 Capsule(s) PO BID No Start Date Active Vitamin B RxNorm: 1 PO daily No Start Date 01/15/2017 Inactive CoQ-10 100 mg capsule RxNorm: 009501 1 Capsule(s) PO daily No Start Date 11/02/2014 Inactive Celexa 20 mg tablet RxNorm: 816388 1 Tablet(s) PO daily No Start Date 03/11/2017 Inactive Cinnamon 500 mg Cap RxNorm: 010091 1 Capsule(s) PO daily No Start Date 01/11/2013 Inactive Vitamin C RxNorm: 1 PO daily No Start Date 01/15/2017 Inactive Lexapro 20 mg Tab RxNorm: 294287 1 Tablet(s) PO daily No Start Date 09/02/2011 Inactive Morehouse Oil 1,000 mg capsule RxNorm: 1 Capsule(s) PO daily No Start Date 11/02/2014 Inactive Lutera (28) 0.1 mg-20 mcg Tab RxNorm: 120987 1 Tablet(s) PO daily No Start Date 08/24/2012 Inactive glucosamine sulfate sodium Cl 1,000 mg tablet RxNorm: 344975 1 Tablet(s) PO daily No Start Date 11/02/2014 Inactive Xanax 0.25 mg tablet RxNorm: 653695 1 Tablet(s) PO PRN No Start Date 01/15/2017 Inactive Medication Administered Medication Codes Instructions Start Date Status Kenalog 40 mg/mL suspension for injection RxNorm: 1338674 1Milliliter 06/02/2014 No longer Active Immunizations Vaccine Codes Date Status Influenza CVX: 141 07/20/2012 completed Assessments Condition Codes Effective Dates Encounter for screening for malignant neoplasm of colon ICD- 10: Z12.11 ICD-9: V76.51 01/16/2017 Encounter for general adult medical examination without abnormal findings ICD-10: Z00.00 ICD-9: V70.0 01/16/2017 Type 1 diabetes mellitus without complications ICD-10: E10.9 ICD-9: 250.00 01/13/2017 Insect bite (nonvenomous), right lower leg, initial encounter ICD-10: S80.861A ICD-9: 916.4 06/06/2016 Encounter for general adult medical examination with abnormal findings ICD-10: Z00.01 ICD-9: V70.0 06/06/2016 Rash and other nonspecific skin eruption ICD-10: R21 ICD-9: 782.1 06/06/2016 Dysuria ICD-10: R30.0 ICD-9: 788.1 12/29/2015 Biceps tendonitis on right ICD-9: 726.12 11/03/2014 ACUTE SINUSITIS ICD-9: 461.9 06/02/2014 ALLERGIC RHINITIS ICD-9: 477.9 2013 Hemorrhoids ICD-9: 455.6 05/16/2014 Muscle ache ICD-9: 729.1 05/16/2014 Rash ICD-9: 782.1 05/16/2014 DIABETES TYPE II ICD-9: 250.00 2013 Hepatitis C antibody test positive ICD-9: 795.79 01/18/2013 Blurred vision ICD-9: 368.8 09/28/2012 DEPRESSIVE DISORDER NEC ICD-9: 311 2011 Obesity ICD-9: 278.00 08/25/2012 Reason For Visit Reason For Visit Effective Dates Notes well woman exam (40-65 years) 01/16/2017 diabetes mellitus 06/06/2016 urinary frequency 11/16/2015 shoulder pain 11/03/2014 Right earache 06/02/2014 diabetes mellitus 05/16/2014 abnormal test results 01/18/2013 vision change 09/28/2012 tunnel vision, pain depression 08/25/2012 diabetes mellitus 09/03/2011 Results Observation Observation Code Item Item Code Result Date CBC 4060508 WBC 3.4 10e9/L 01/15/2017 CBC 0069281 RBC 5.07 10e12/L 01/15/2017 CBC 5602266 HEMOGLOBIN 13.8 g/dL 01/15/2017 CBC 9227344 HEMATOCRIT 42.4 % 01/15/2017 CBC 4715596 MCV 83.6 fL 01/15/2017 CBC 3464551 MCH 27.2 pg 01/15/2017 CBC 2992856 MCHC 32.5 g/dL 01/15/2017 CBC 2506113 PLATELET COUNT 201 10e9/L 01/15/2017 CBC 8218951 Mean Plt Volume 10.5 fL 01/15/2017 CBC 9275247 Neut Auto 44.6 % 01/15/2017 CBC 6407667 Lymph Auto 38.5 % 01/15/2017 CBC 9841866 [place] Auto 14.6 % 01/15/2017 CBC 1548401 Eos Auto 2.0 % 01/15/2017 CBC 7564056 RDW 14.1 % 01/15/2017 CBC 5070936 Baso Auto 0.3 % 01/15/2017 CBC 3453999 Neutrophil Abs 1.52 10e9/L 01/15/2017 CBC 4366404 Lymphocyte Abs 1.31 10e9/L 01/15/2017 CBC 6588768 Monocyte Abs 0.50 10e9/L 01/15/2017 CBC 5558800 Eosinophil Abs 0.07 10e9/L 01/15/2017 CBC 5065478 RDW-SD 42.4 fL 01/15/2017 CBC 5502144 Basophil Abs 0.01 10e9/L 01/15/2017 LIPID GRP CHOLESTEROL 182 mg/dL 01/15/2017 LIPID GRP Triglyceride 73 mg/dL 01/15/2017 LIPID GRP HDL CHOLESTEROL 60 mg/dL 01/15/2017 LIPID GRP Chol/HDL Ratio 3.03 ratio 01/15/2017 LIPID GRP NON-HDL Chol 122 mg/dL 01/15/2017 LIPID GRP LDL Cholesterol 107 mg/dL 01/15/2017 CHEM 14 8766891 AST 25 U/L 01/15/2017 CHEM 14 2678312 ALT 27 U/L 01/15/2017 CHEM 14 5031975 BUN 16 mg/dL 01/15/2017 CHEM 14 5179835 ALBUMIN 4.6 g/dL 01/15/2017 CHEM 14 1518165 CHLORIDE 103 mmol/L 01/15/2017 CHEM 14 9246006 Bili Total 0.5 mg/dL 01/15/2017 CHEM 14 4752472 ALK PHOS 59 U/L 01/15/2017 CHEM 14 7544828 SODIUM 140 mmol/L 01/15/2017 CHEM 14 3671041 CREATININE 0.69 mg/dL 01/15/2017 CHEM 14 2537299 CALCIUM 10.0 mg/dL 01/15/2017 CHEM 14 3370565 POTASSIUM 4.3 mmol/L 01/15/2017 CHEM 14 2084103 TOTAL PROTEIN 7.6 g/dL 01/15/2017 CHEM 14 7295101 GLUCOSE 117 mg/dL 01/15/2017 CHEM 14 5175782 Bicarbonate 27 mmol/L 01/15/2017 CHEM 14 0377548 AGAP 10 mmol/L 01/15/2017 A1C HPLC 2605897 Hgb A1c 06607-6 5.9 % 01/15/2017 MEAN GLUC 5272161 Calc Mean Gluc 123 mg/dL 01/15/2017 GFR CALC 6114401 GFR Non Afr Amr >60 mL/min 01/15/2017 GFR CALC 0988385 GFR Afr Amr >60 mL/min 01/15/2017 TSH 4863607 TSH 2.782 uIU/mL 01/15/2017 RMSF IFA 2407009 RMSF IgG <1:16 06/07/2016 RMSF IFA 1099735 RMSF IgM <1:10 06/07/2016 TULAREM AB 9930158 [place] Ab <1:20 06/07/2016 E CHAFF AB 9567746 E Chaff IgG <1:16 06/07/2016 E CHAFF AB 4642240 E Chaff IgM <1:10 06/07/2016 CHEM 14 8890323 AST 19 U/L 06/04/2016 CHEM 14 3199101 ALT 21 U/L 06/04/2016 CHEM 14 9160621 BUN 18 mg/dL 06/04/2016 CHEM 14 2651338 ALBUMIN 4.5 g/dL 06/04/2016 CHEM 14 0340272 CHLORIDE 103 mmol/L 06/04/2016 CHEM 14 0814680 Bili Total 0.6 mg/dL 06/04/2016 CHEM 14 4292363 ALK PHOS 57 U/L 06/04/2016 CHEM 14 1078733 SODIUM 138 mmol/L 06/04/2016 CHEM 14 6049854 CREATININE 0.63 mg/dL 06/04/2016 CHEM 14 8829426 CALCIUM 9.7 mg/dL 06/04/2016 CHEM 14 2020064 POTASSIUM 4.0 mmol/L 06/04/2016 CHEM 14 0125086 TOTAL PROTEIN 7.4 g/dL 06/04/2016 CHEM 14 8214462 GLUCOSE 108 mg/dL 06/04/2016 CHEM 14 1616257 Bicarbonate 25 mmol/L 06/04/2016 CHEM 14 7608421 AGAP 10 mmol/L 06/04/2016 CBC 9598998 WBC 3.9 10e9/L 06/04/2016 CBC 6834955 RBC 4.71 10e12/L 06/04/2016 CBC 6749274 HEMOGLOBIN 13.0 g/dL 06/04/2016 CBC 7985300 HEMATOCRIT 39.4 % 06/04/2016 CBC 0833129 MCV 83.7 fL 06/04/2016 CBC 3050823 MCH 27.6 pg 06/04/2016 CBC 5489829 MCHC 33.0 g/dL 06/04/2016 CBC 0147783 PLATELET COUNT 216 10e9/L 06/04/2016 CBC 5959332 Mean Plt Volume 11.0 fL 06/04/2016 CBC 2196136 Neut Auto 46.8 % 06/04/2016 CBC 6048687 Lymph Auto 43.3 % 06/04/2016 CBC 0259410 [place] Auto 8.1 % 06/04/2016 CBC 4315141 Eos Auto 1.5 % 06/04/2016 CBC 2331330 RDW 13.8 % 06/04/2016 CBC 9718602 Baso Auto 0.3 % 06/04/2016 CBC 7003999 Neutrophil Abs 1.83 10e9/L 06/04/2016 CBC 5457690 Lymphocyte Abs 1.69 10e9/L 06/04/2016 CBC 6645564 Monocyte Abs 0.32 10e9/L 06/04/2016 CBC 0443179 Eosinophil Abs 0.06 10e9/L 06/04/2016 CBC 8955499 RDW-SD 41.2 fL 06/04/2016 CBC 1483232 Basophil Abs 0.01 10e9/L 06/04/2016 LIPID GRP CHOLESTEROL 146 mg/dL 06/04/2016 LIPID GRP Triglyceride 59 mg/dL 06/04/2016 LIPID GRP HDL CHOLESTEROL 57 mg/dL 06/04/2016 LIPID GRP Chol/HDL Ratio 2.56 ratio 06/04/2016 LIPID GRP NON-HDL Chol 89 mg/dL 06/04/2016 LIPID GRP LDL Cholesterol 77 mg/dL 06/04/2016 TSH 9289834 TSH 2.341 uIU/mL 06/04/2016 VIT D TOTL 8355888 Vitamin D 25 OH 68 ng/mL 06/04/2016 MEAN GLUC 9705609 Mean Glucose 120 mg/dL 06/04/2016 GFR CALC 8455257 GFR Non Afr Amr >60 mL/min 06/04/2016 GFR CALC 5417915 GFR Afr Amr >60 mL/min 06/04/2016 A1C HPLC 8003668 Hgb A1c 82959-8 5.8 % 06/04/2016 CHEM 14 7749594 AST 21 U/L 11/29/2015 CHEM 14 4854702 ALT 22 IU/L 11/29/2015 CHEM 14 8575330 BUN 15 MG/DL 11/29/2015 CHEM 14 5057197 ALBUMIN 4.8 GM/DL 11/29/2015 CHEM 14 1972967 CHLORIDE 105 MMOL/L 11/29/2015 CHEM 14 5916385 BILI TOT 0.6 MG/DL 11/29/2015 CHEM 14 5312835 ALK PHOS 61 U/L 11/29/2015 CHEM 14 0669817 SODIUM 142 MMOL/L 11/29/2015 CHEM 14 5416342 CREATININE 0.71 MG/DL 11/29/2015 CHEM 14 3687613 CALCIUM 9.9 MG/DL 11/29/2015 CHEM 14 6224430 POTASSIUM 3.9 MMOL/L 11/29/2015 CHEM 14 5717782 PROT TOT 7.7 GM/DL 11/29/2015 CHEM 14 7854475 GLUCOSE 104 MG/DL 11/29/2015 CHEM 14 1186616 BICARB 31 MMOL/L 11/29/2015 CHEM 14 4467221 ANION GAP 6 MEQ/L 11/29/2015 A1C HPLC 9021551 A1C HPLC 63529-5 5.8 % 11/29/2015 TSH 7305423 TSH 1.709 uIU/ML 11/29/2015 GFR CALC 3502609 GFR AA >60 ML/MIN 11/29/2015 GFR CALC 4900919 GFR NON-AA >60 ML/MIN 11/29/2015 CBC 6939924 WBC 4.2 10e9/L 11/29/2015 CBC 3077648 RBC 4.97 10e12/L 11/29/2015 CBC 8163724 HGB 13.4 g/dL 11/29/2015 CBC 7792288 HCT DET 41.7 % 11/29/2015 CBC 5916278 MCV 83.9 fL 11/29/2015 CBC 1257209 MCH 27.0 pg 11/29/2015 CBC 9882495 MCHC 32.1 g/dL 11/29/2015 CBC 3288491 PLT 218 10e9/L 11/29/2015 CBC 2444602 MPV 10.6 fL 11/29/2015 CBC 7204908 LARISSA % 44.4 % 11/29/2015 CBC 4790553 LY % 45.5 % 11/29/2015 CBC 0842929 MON % 7.5 % 11/29/2015 CBC 2455426 EOS % 2.4 % 11/29/2015 CBC 4245947 BASO % 0.2 % 11/29/2015 CBC 1792644 RDW 13.5 % 11/29/2015 CBC 3197725 ABS LARISSA 1.86 10e9/L 11/29/2015 CBC 6493977 ABS LYMPH 1.91 10e9/L 11/29/2015 CBC 8622842 ABS MONO 0.32 10e9/L 11/29/2015 CBC 8851699 ABS EOS 0.10 10e9/L 11/29/2015 CBC 6325699 ABS BASO 0.01 10e9/L 11/29/2015 CBC 7117529 RDW-SD 40.9 fL 11/29/2015 URIC ACID 2593459 URIC ACID 6.2 MG/DL 11/29/2015 LIPID GRP HDL TEST 58 MG/DL 11/29/2015 LIPID GRP TRIG 84 MG/DL 11/29/2015 LIPID GRP TEST LDL 75 MG/DL 11/29/2015 LIPID GRP CHOL 150 MG/DL 11/29/2015 LIPID GRP RCHOL/HDL 2.59 RATIO 11/29/2015 LIPID GRP NON-HDL CH 92 MG/DL 11/29/2015 Culture Urine [id number] URINE CULTURE SEE NOTES 11/20/2015 Culture Urine [id number] Continued Results 11/20/2015 Urine Culture Ucult Complete >100,000 col/ml aerobic growth sent to ref lab 11/17/2015 TSH [id number] TSH 2.397 uIU/ML 05/25/2014 A1C HPLC 3524542 A1C HPLC 61284-2 5.7 % 05/25/2014 GFR CALC 1203532 GFR AA >60 ML/MIN 05/25/2014 GFR CALC 5880126 GFR NON-AA >60 ML/MIN 05/25/2014 LIPID GRP HDL TEST 46 MG/DL 05/25/2014 LIPID GRP TRIG 113 MG/DL 05/25/2014 LIPID GRP TEST LDL 102 MG/DL 05/25/2014 LIPID GRP CHOL 171 MG/DL 05/25/2014 LIPID GRP 4426052 RCHOL/HDL 3.72 RATIO 05/25/2014 LIPID GRP 0314535 NON-HDL CH 125 MG/DL 05/25/2014 CHEM 14 2335184 AST 17 U/L 05/25/2014 CHEM 14 9739948 ALT 19 IU/L 05/25/2014 CHEM 14 4221736 BUN 16 MG/DL 05/25/2014 CHEM 14 4300485 ALBUMIN 4.5 GM/DL 05/25/2014 CHEM 14 8089466 CHLORIDE 105 MMOL/L 05/25/2014 CHEM 14 8297745 BILI TOT 0.4 MG/DL 05/25/2014 CHEM 14 9510206 ALK PHOS 43 U/L 05/25/2014 CHEM 14 4136778 SODIUM 138 MMOL/L 05/25/2014 CHEM 14 0163832 CREATININE 0.69 MG/DL 05/25/2014 CHEM 14 5681011 CALCIUM 9.7 MG/DL 05/25/2014 CHEM 14 9369112 POTASSIUM 4.1 MMOL/L 05/25/2014 CHEM 14 4017027 PROT TOT 8.0 GM/DL 05/25/2014 CHEM 14 8710339 GLUCOSE 113 MG/DL 05/25/2014 CHEM 14 4477230 BICARB 28 MMOL/L 05/25/2014 CHEM 14 5184209 ANION GAP 5 MEQ/L 05/25/2014 CBC 8507881 WBC 3.7 10e9/L 05/25/2014 CBC 1197112 RBC 4.41 10e12/L 05/25/2014 CBC 9232615 HGB 12.3 g/dL 05/25/2014 CBC 7665762 HCT DET 37.6 % 05/25/2014 CBC 8656935 MCV 85.3 fL 05/25/2014 CBC 0403497 MCH 27.9 pg 05/25/2014 CBC 5054802 MCHC 32.7 g/dL 05/25/2014 CBC 6244552 PLT 228 10e9/L 05/25/2014 CBC 1552996 MPV 11.1 fL 05/25/2014 CBC 1122891 LARISSA % 49.4 % 05/25/2014 CBC 6588283 LY % 35.8 % 05/25/2014 CBC 7278194 MON % 12.9 % 05/25/2014 CBC 3464413 EOS % 1.6 % 05/25/2014 CBC 5275301 BASO % 0.3 % 05/25/2014 CBC 2773404 RDW 13.7 % 05/25/2014 CBC 2841807 ABS LARISSA 1.83 10e9/L 05/25/2014 CBC 6232935 ABS LYMPH 1.32 10e9/L 05/25/2014 CBC 2619399 ABS MONO 0.48 10e9/L 05/25/2014 CBC 7754030 ABS EOS 0.06 10e9/L 05/25/2014 CBC 0369965 ABS BASO 0.01 10e9/L 05/25/2014 CBC 2391288 RDW-SD 41.9 fL 05/25/2014 Review of Systems System Result Effective Dates Constitutional No recent illness 2016 Constitutional No anorexia 01/16/2017 Constitutional No night sweats 2016 Constitutional No chills 01/16/2017 Constitutional No diaphoresis 01/16/2017 Constitutional No fatigue 01/16/2017 Constitutional No fever 01/16/2017 Constitutional No insomnia 01/16/2017 Constitutional No malaise 01/16/2017 Constitutional No weight loss 01/16/2017 Constitutional No weight gain 01/16/2017 Constitutional No obesity 01/16/2017 Eyes No eye pain 01/16/2017 Eyes No vision change 01/16/2017 Ears/Nose/Throat/Neck No dizziness 2016 Ears/Nose/Throat/Neck No headache 2016 Cardiovascular No chest pain/pressure Cardiovascular No claudication 2016 Cardiovascular No dyspnea 01/16/2017 Respiratory No cough 01/16/2017 Respiratory No cigarette smoking 2016 Respiratory No chest tightness 2016 Respiratory No dyspnea 01/16/2017 Gastrointestinal No abdominal pain 2016 Gastrointestinal No dysphagia 01/16/2017 Gastrointestinal No dyspepsia 01/16/2017 Gastrointestinal No vomiting 01/16/2017 Gastrointestinal No nausea 01/16/2017 Gastrointestinal gastroesophageal reflux 01/16/2017 Genitourinary/Nephrology No dysuria 01/16 Genitourinary/Nephrology No anuria/oliguria 01/16/2017 Genitourinary/Nephrology No polyuria Musculoskeletal No stiffness 01/16/2017 Musculoskeletal No swelling 01/16/2017 Musculoskeletal No arthralgia(s) 2016 Musculoskeletal No back pain 01/16/2017 Musculoskeletal No bone fracture 2016 Musculoskeletal No bone pain 01/16/2017 Dermatologic No rash 01/16/2017 Dermatologic No sores 01/16/2017 Neurologic No alteration of consciousness 01/16/2017 Neurologic No mental status change 2016 Psychiatric No anxiety 01/16/2017 Psychiatric No depression 01/16/2017 Endocrine No dry or coarse skin 2016 Endocrine No polydipsia 01/16/2017 Endocrine No polyuria 01/16/2017 Endocrine No sweating 01/16/2017 Endocrine No weakness 01/16/2017 Dermatologic rash 06/06/2016 Musculoskeletal joint complaint 2015 Constitutional No anorexia 06/06/2016 Constitutional No recent illness 2015 Constitutional No night sweats 2015 Constitutional No chills 06/06/2016 Constitutional No diaphoresis 06/06/2016 Constitutional No fatigue 06/06/2016 Constitutional No fever 06/06/2016 Constitutional No insomnia 06/06/2016 Constitutional No malaise 06/06/2016 Constitutional No weight loss 06/06/2016 Constitutional No weight gain 06/06/2016 Eyes No eye erythema 06/06/2016 Eyes No eye discharge 06/06/2016 Ears/Nose/Throat/Neck No dizziness 2015 Ears/Nose/Throat/Neck No headache 2015 Cardiovascular No chest pain/pressure Respiratory No cough 06/06/2016 Gastrointestinal No abdominal pain 2015 Gastrointestinal No constipation 2015 Gastrointestinal No diarrhea 06/06/2016 Genitourinary/Nephrology No dysuria 06/06 Ears/Nose/Throat/Neck nasal discharge Ears/Nose/Throat/Neck nasal allergies Neurologic No alteration of consciousness 06/06/2016 Hematologic/Lymphatic No abnormal ecchymoses 06/06/2016 Endocrine No dry or coarse skin 2015 Constitutional No recent illness 2015 Constitutional No anorexia 11/16/2015 Constitutional No night sweats 2015 Constitutional No chills 11/16/2015 Constitutional No diaphoresis 11/16/2015 Constitutional No fatigue 11/16/2015 Constitutional No fever 11/16/2015 Constitutional No insomnia 11/16/2015 Constitutional No malaise 11/16/2015 Constitutional No weight loss 11/16/2015 Constitutional No weight gain 11/16/2015 Constitutional No obesity 11/16/2015 Gastrointestinal abdominal pain 2015 Genitourinary/Nephrology No dysuria 11/16 Genitourinary/Nephrology flank pain 11/16 Respiratory No cigarette smoking 2015 Respiratory No chest tightness 2015 Respiratory No chest congestion 2015 Respiratory No cough 11/16/2015 Gastrointestinal No vomiting 11/16/2015 Gastrointestinal No nausea 11/16/2015 Cardiovascular No chest pain/pressure Eyes No vision change 11/16/2015 Ears/Nose/Throat/Neck No nasal allergies 11/16/2015 Ears/Nose/Throat/Neck No nasal discharge 11/16/2015 Ears/Nose/Throat/Neck No sore throat Ears/Nose/Throat/Neck No sinus congestion 11/16/2015 Ears/Nose/Throat/Neck No otorrhea 2015 Ears/Nose/Throat/Neck No otitis media Ears/Nose/Throat/Neck No otalgia 2015 Musculoskeletal No arthralgia(s) 2015 Musculoskeletal No myalgias 11/16/2015 Musculoskeletal No muscle weakness 2015 Musculoskeletal No joint complaint 2015 Dermatologic No rash 11/16/2015 Dermatologic No sores 11/16/2015 Psychiatric No depression 11/16/2015 Psychiatric No anxiety 11/16/2015 Constitutional No recent illness 2014 Constitutional No chills 11/03/2014 Constitutional No fatigue 11/03/2014 Constitutional No fever 11/03/2014 Constitutional No insomnia 11/03/2014 Constitutional No malaise 11/03/2014 Cardiovascular No chest pain/pressure Cardiovascular No dyspnea 11/03/2014 Cardiovascular No edema 11/03/2014 Cardiovascular No exercise intolerance Cardiovascular No fatigue 11/03/2014 Cardiovascular No near-syncope/dizziness 11/03/2014 Respiratory No chest tightness 2014 Respiratory No cigarette smoking 2014 Respiratory No cough 11/03/2014 Respiratory No dyspnea 11/03/2014 Respiratory No pedal edema 11/03/2014 Respiratory No snoring 11/03/2014 Respiratory No wheezing 11/03/2014 Gastrointestinal No hemorrhoids 2014 Gastrointestinal No abdominal pain 2014 Gastrointestinal No constipation 2014 Gastrointestinal No diarrhea 11/03/2014 Gastrointestinal No gastroesophageal reflux 11/03/2014 Gastrointestinal No melena 11/03/2014 Gastrointestinal No nausea 11/03/2014 Gastrointestinal No vomiting 11/03/2014 Psychiatric No anxiety 11/03/2014 Psychiatric No depression 11/03/2014 Musculoskeletal stiffness 11/03/2014 Musculoskeletal arthralgia(s) 11/03/2014 Musculoskeletal shoulder pain 11/03/2014 Constitutional recent illness 06/02/2014 Constitutional No anorexia 06/02/2014 Constitutional No night sweats 2013 Constitutional chills 06/02/2014 Constitutional diaphoresis 06/02/2014 Constitutional No fatigue 06/02/2014 Constitutional No fever 06/02/2014 Constitutional No insomnia 06/02/2014 Constitutional No malaise 06/02/2014 Constitutional No weight loss 06/02/2014 Constitutional No weight gain 06/02/2014 Eyes No eye discharge 06/02/2014 Eyes No eye erythema 06/02/2014 Cardiovascular No chest pain/pressure Respiratory No cough 06/02/2014 Gastrointestinal No constipation 2013 Gastrointestinal No diarrhea 06/02/2014 Gastrointestinal No vomiting 06/02/2014 Gastrointestinal No nausea 06/02/2014 Genitourinary/Nephrology No dysuria 06/02 Musculoskeletal No joint complaint 2013 Dermatologic No sores 06/02/2014 Dermatologic No rash 06/02/2014 Constitutional No recent illness 2013 Constitutional No fatigue 05/16/2014 Constitutional No fever 05/16/2014 Ears/Nose/Throat/Neck No dizziness 2013 Cardiovascular No chest pain/pressure Respiratory No chest congestion 2013 Respiratory No cough 05/16/2014 Gastrointestinal No abdominal pain 2013 Gastrointestinal No constipation 2013 Gastrointestinal No diarrhea 05/16/2014 Gastrointestinal No nausea 05/16/2014 Gastrointestinal No vomiting 05/16/2014 Genitourinary/Nephrology No dysuria 05/16 Musculoskeletal No joint complaint 2013 Dermatologic No rash 05/16/2014 Neurologic No alteration of consciousness 05/16/2014 Eyes No blindness 05/16/2014 Eyes No vision change 05/16/2014 Psychiatric No anxiety 05/16/2014 Psychiatric No depression 05/16/2014 Constitutional No recent illness 2012 Constitutional No chills 01/18/2013 Constitutional No fatigue 01/18/2013 Constitutional No fever 01/18/2013 Constitutional No insomnia 01/18/2013 Constitutional No malaise 01/18/2013 Cardiovascular No chest pain/pressure 10/2012 Cardiovascular No dyspnea 01/18/2013 Cardiovascular No edema 01/18/2013 Cardiovascular No exercise intolerance Cardiovascular No fatigue 01/18/2013 Cardiovascular No near-syncope/dizziness 01/18/2013 Respiratory No chest tightness 2012 Respiratory No cigarette smoking 2012 Respiratory No cough 01/18/2013 Respiratory No dyspnea 01/18/2013 Respiratory No pedal edema 01/18/2013 Respiratory No snoring 01/18/2013 Respiratory No wheezing 01/18/2013 Psychiatric No anxiety 01/18/2013 Psychiatric No depression 01/18/2013 Constitutional No recent illness 2011 Constitutional No fatigue 09/28/2012 Constitutional No fever 09/28/2012 Ears/Nose/Throat/Neck No dizziness 2011 Cardiovascular No chest pain/pressure 07/2012 Respiratory No chest congestion 2011 Respiratory No cough 09/28/2012 Gastrointestinal No abdominal pain 2011 Gastrointestinal No constipation 2011 Gastrointestinal No diarrhea 09/28/2012 Gastrointestinal No nausea 09/28/2012 Gastrointestinal No vomiting 09/28/2012 Genitourinary/Nephrology No dysuria 09/28 Musculoskeletal No joint complaint 2011 Dermatologic No rash 09/28/2012 Neurologic No alteration of consciousness 09/28/2012 Constitutional No recent illness 2011 Constitutional No anorexia 08/25/2012 Constitutional No night sweats 2011 Constitutional No chills 08/25/2012 Constitutional No diaphoresis 08/25/2012 Constitutional No fatigue 08/25/2012 Constitutional No fever 08/25/2012 Constitutional No insomnia 08/25/2012 Constitutional No malaise 08/25/2012 Constitutional No weight loss 08/25/2012 Constitutional weight gain 08/25/2012 Eyes No eye discharge 08/25/2012 Eyes No eye erythema 08/25/2012 Ears/Nose/Throat/Neck No dizziness 2011 Ears/Nose/Throat/Neck No nasal discharge 08/25/2012 Cardiovascular No chest pain/pressure 03/2012 Cardiovascular No dyspnea 08/25/2012 Respiratory No productive sputum 2011 Respiratory No chest congestion 2011 Respiratory No cough 08/25/2012 Gastrointestinal No abdominal pain 2011 Gastrointestinal No diarrhea 08/25/2012 Gastrointestinal No constipation 2011 Gastrointestinal No nausea 08/25/2012 Gastrointestinal No vomiting 08/25/2012 Genitourinary/Nephrology No dysuria 08/25 Musculoskeletal No joint complaint 2011 Dermatologic No sores 08/25/2012 Dermatologic No rash 08/25/2012 Neurologic No alteration of consciousness 08/25/2012 Constitutional No recent illness 2010 Constitutional No fatigue 09/03/2011 Constitutional No fever 09/03/2011 Eyes No eye discharge 09/03/2011 Eyes No eye erythema 09/03/2011 Ears/Nose/Throat/Neck No dizziness 2010 Cardiovascular No chest pain/pressure Respiratory No cough 09/03/2011 Respiratory No chest congestion 2010 Gastrointestinal No abdominal pain 2010 Gastrointestinal No nausea 09/03/2011 Gastrointestinal No vomiting 09/03/2011 Gastrointestinal No constipation 2010 Gastrointestinal No diarrhea 09/03/2011 Genitourinary/Nephrology No dysuria 09/03 Musculoskeletal No joint complaint 2010 Dermatologic No rash 09/03/2011 Neurologic No alteration of consciousness 09/03/2011 Physical Exam Exam Name System Name Item Name Status Result Effective Dates Notes Full Exam - General 1994 Constitutional general appearance Development: well developed 01/16/2017 None Full Exam - General 1994 Constitutional general appearance Development: appears stated age 0301/16/2017 None Full Exam - General 1994 Eyes conjunctiva /eyelids Overall: conjunctiva clear 01/16/2017 None Full Exam - General 1994 Eyes conjunctiva /eyelids Overall: cornea clear 01/16/2017 None Full Exam - General 1994 Eyes conjunctiva /eyelids Overall: eyelids normal 01/16/2017 None Full Exam - General 1994 Eyes pupils and irises Overall: pupils equal, round, reactive to light and accomodation 01/16/2017 None Full Exam - General 1994 Ears/Nose/Throat oral cavity/pharynx/larynx Overall: oral mucosa clear 01/16/2017 None Full Exam - General 1994 Ears/Nose/Throat otoscopic exam Overall: external auditory canals clear 01/16/2017 None Full Exam - General 1994 Ears/Nose/Throat otoscopic exam Overall: tympanic membranes clear 01/16/2017 None Full Exam - General 1994 Neck thyroid Overall: normal size None Full Exam - General 1994 Neck thyroid Overall: normal consistency 01/16/2017 None Full Exam - General 1994 Neck thyroid Overall: nontender 2016 None Full Exam - General 1994 Respiratory auscultation Overall: breath sounds clear bilaterally 01/16/2017 None Full Exam - General 1994 Respiratory respiratory effort/rhythm Overall: no retractions 01/16/2017 None Full Exam - General 1994 Respiratory respiratory effort/rhythm Overall: normal rate 01/16/2017 None Full Exam - General 1994 Cardiovascular auscultation of heart Overall: regular rate 01/16/2017 None Full Exam - General 1994 Cardiovascular auscultation of heart Overall: normal heart sounds 01/16/2017 None Full Exam - General 1994 Cardiovascular auscultation of heart Overall: no murmurs 01/16/2017 None Full Exam - General 1994 Abdomen abdominal exam Overall: no tenderness 01/16/2017 None Full Exam - General 1994 Abdomen abdominal exam Overall: normal bowel sounds 01/16/2017 None Full Exam - General 1994 Lymphatic neck nodes Overall: anterior cervical chain benign 01/16/2017 None Full Exam - General 1994 Lymphatic neck nodes Overall: posterior cervical chain benign 01/16/2017 None Full Exam - General 1994 Musculoskeletal gait and station Overall: normal gait 01/16/2017 None Full Exam - General 1994 Musculoskeletal gait and station Overall: normal station 01/16/2017 None Full Exam - General 1994 Musculoskeletal head and neck Overall: head atraumatic 01/16/2017 None Full Exam - General 1994 Musculoskeletal head and neck Overall: cervical spine benign 01/16/2017 None Full Exam - General 1994 Integument inspection of skin Overall: few scattered moles, no gross abnormalities 01/16/2017 None Full Exam - General 1994 Integument inspection of skin Overall: no rash, lesions 01/16/2017 None Full Exam - General 1994 Neurologic mental status Overall: alert 01/16/2017 None Full Exam - General 1994 Neurologic mental status Overall: oriented 01/16/2017 None Full Exam - General 1994 Neurologic motor Overall: normal bulk, tone 01/16/2017 None Full Exam - General 1994 Psychiatric orientation/consciousness Overall: oriented to person, place and time 01/16/2017 None Full Exam - General 1994 Psychiatric mood and affect Overall: normal mood and affect 01/16/2017 None Full Exam - General 1994 Psychiatric speech Overall: normal quality, no aphasia 01/16/2017 None Full Exam - General 1994 Constitutional general appearance Overall: well developed 06/06/2016 None Full Exam - General 1994 Constitutional general appearance Overall: in no acute distress 06/06/2016 None Full Exam - General 1994 Constitutional general appearance Overall: well nourished 06/06/2016 None Full Exam - General 1994 Respiratory auscultation Overall: breath sounds clear bilaterally 06/06/2016 None Full Exam - General 1994 Respiratory respiratory effort/rhythm Overall: no retractions 06/06/2016 None Full Exam - General 1994 Respiratory respiratory effort/rhythm Overall: normal rate 06/06/2016 None Full Exam - General 1994 Cardiovascular auscultation of heart Overall: regular rate 06/06/2016 None Full Exam - General 1994 Cardiovascular auscultation of heart Overall: normal heart sounds 06/06/2016 None Full Exam - General 1994 Cardiovascular auscultation of heart Overall: no murmurs 06/06/2016 None Full Exam - General 1994 Abdomen abdominal exam Overall: no tenderness 06/06/2016 None Full Exam - General 1994 Abdomen abdominal exam Overall: normal bowel sounds 06/06/2016 None Full Exam - General 1994 Psychiatric orientation/consciousness Overall: oriented to person, place and time 06/06/2016 None Full Exam - General 1994 Psychiatric mood and affect Overall: normal mood and affect 06/06/2016 None Full Exam - General 1994 Psychiatric mood and affect Mood: happy 06/06/2016 None Full Exam - General 1994 Ears/Nose/Throat otoscopic exam Overall: external auditory canals clear 06/06/2016 None Full Exam - General 1994 Ears/Nose/Throat otoscopic exam Overall: tympanic membranes clear 06/06/2016 None Full Exam - General 1994 Lymphatic neck nodes Overall: anterior cervical chain benign 06/06/2016 None Full Exam - General 1994 Lymphatic neck nodes Overall: posterior cervical chain benign 06/06/2016 None Full Exam - General 1994 Neurologic cranial nerves Overall: crainial nerves 2 - 12 grossly intact 06/06/2016 None Full Exam - General 1994 Integument inspection of skin Location: neck 06/06/2016 posterior neck-patch Full Exam - General 1994 Integument inspection of skin Location: right leg 06/06/2016 posterior thigh-papule- erythematous Full Exam - General 1994 Constitutional general appearance Overall: well developed 11/16/2015 None Full Exam - General 1994 Constitutional general appearance Overall: in no acute distress 11/16/2015 None Full Exam - General 1994 Constitutional general appearance Overall: well nourished 11/16/2015 None Full Exam - General 1994 Respiratory auscultation Overall: breath sounds clear bilaterally 11/16/2015 None Full Exam - General 1994 Respiratory respiratory effort/rhythm Overall: no retractions 11/16/2015 None Full Exam - General 1994 Respiratory respiratory effort/rhythm Overall: normal rate 11/16/2015 None Full Exam - General 1994 Cardiovascular auscultation of heart Overall: regular rate 11/16/2015 None Full Exam - General 1994 Cardiovascular auscultation of heart Overall: normal heart sounds 11/16/2015 None Full Exam - General 1994 Cardiovascular auscultation of heart Overall: no murmurs 11/16/2015 None Full Exam - General 1994 Abdomen abdominal exam Overall: no tenderness 11/16/2015 None Full Exam - General 1994 Abdomen abdominal exam Overall: normal bowel sounds 11/16/2015 None Full Exam - General 1994 Psychiatric orientation/consciousness Overall: oriented to person, place and time 11/16/2015 None Full Exam - General 1994 Psychiatric mood and affect Overall: normal mood and affect 11/16/2015 None Full Exam - General 1994 Psychiatric mood and affect Mood: happy 11/16/2015 None Full Exam - General 1994 Constitutional general appearance Overall: well nourished 11/03/2014 None Full Exam - General 1994 Constitutional general appearance Overall: well developed 11/03/2014 None Full Exam - General 1994 Constitutional general appearance Overall: in no acute distress 11/03/2014 None Full Exam - General 1994 Psychiatric mood and affect Mood: happy 11/03/2014 None Full Exam - General 1994 Psychiatric mood and affect Overall: normal mood and affect 11/03/2014 None Full Exam - General 1994 Psychiatric orientation/consciousness Overall: oriented to person, place and time 11/03/2014 None Full Exam - General 1994 Musculoskeletal upper extremity Inspection - shoulder: a normal exam 11/03/2014 None Full Exam - General 1994 Musculoskeletal upper extremity Palpation - shoulder: tenderness @ bicipital groove 11/03/2014 None Full Exam - General 1994 Musculoskeletal upper extremity Palpation - shoulder: tenderness @ subacromial space 11/03/2014 None Full Exam - General 1994 Musculoskeletal upper extremity Palpation - shoulder: pain with resisted biceps flexion 11/03/2014 None Full Exam - General 1994 Musculoskeletal upper extremity Palpation - shoulder: pain with resisted external rotation 11/03/2014 None Full Exam - General 1994 Cardiovascular auscultation of heart Overall: regular rate 11/03/2014 None Full Exam - General 1994 Cardiovascular auscultation of heart Overall: normal heart sounds 11/03/2014 None Full Exam - General 1994 Cardiovascular auscultation of heart Overall: no murmurs 11/03/2014 None Full Exam - General 1994 Cardiovascular extremities Overall: no clubbing 11/03/2014 None Full Exam - General 1994 Respiratory respiratory effort/rhythm Overall: normal rate 11/03/2014 None Full Exam - General 1994 Respiratory respiratory effort/rhythm Overall: no retractions 11/03/2014 None Full Exam - General 1994 Respiratory auscultation Overall: breath sounds clear bilaterally 11/03/2014 None Full Exam - ENT Constitutional general appearance Overall: well nourished 06/02/2014 None Full Exam - ENT Constitutional general appearance Overall: well developed 06/02/2014 None Full Exam - ENT Constitutional general appearance Overall: in no acute distress 06/02/2014 None Full Exam - ENT Neurologic orientation Overall: oriented to person, place and time 06/02/2014 None Full Exam - ENT Lymphatic palpation of lymph nodes Overall: shotty lymphadenopathy 06/02/2014 None Full Exam - ENT Cardiovascular auscultation of heart Overall: regular rate 06/02/2014 None Full Exam - ENT Cardiovascular auscultation of heart Overall: no murmurs 06/02/2014 None Full Exam - ENT Cardiovascular auscultation of heart Overall: normal heart sounds 06/02/2014 None Full Exam - ENT Respiratory auscultation Overall: breath sounds clear bilaterally 06/02/2014 None Full Exam - ENT Respiratory inspection Overall: no retractions 06/02/2014 None Full Exam - ENT Respiratory inspection Overall: normal rate None Full Exam - ENT Face and Head palpation Left maxillary sinus: tender 06/02/2014 None Full Exam - ENT Face and Head palpation Right maxillary sinus: tender 06/02/2014 None Full Exam - ENT Face and Head palpation Left frontal sinus: tender 06/02/2014 None Full Exam - ENT Face and Head palpation Right frontal sinus: tender 06/02/2014 None Full Exam - ENT Ears/Nose/Throat otoscopic exam Overall: external auditory canals normal 06/02/2014 None Full Exam - ENT Ears/Nose/Throat otoscopic exam Overall: tympanic membranes normal 06/02/2014 None Full Exam - ENT Ears/Nose/Throat oropharynx Overall: oral mucosa clear 06/02/2014 None Full Exam - General Constitutional general appearance Overall: well nourished 05/16/2014 None Full Exam - General Constitutional general appearance Overall: well developed 05/16/2014 None Full Exam - General Constitutional general appearance Overall: in no acute distress 05/16/2014 None Full Exam - General Eyes conjunctiva/ eyelids Overall: conjunctiva clear 05/16/2014 None Full Exam - General Eyes pupils and irises Overall: pupils equal, round, reactive to light and accomodation 05/16/2014 None Full Exam - General Ears/Nose/Throat otoscopic exam Overall: external auditory canals clear 05/16/2014 None Full Exam - General Ears/Nose/Throat otoscopic exam Overall: tympanic membranes clear 05/16/2014 None Full Exam - General Ears/Nose/Throat oral cavity/pharynx/larynx Overall: oral mucosa clear 05/16/2014 None Full Exam - General Respiratory auscultation Overall: breath sounds clear bilaterally 05/16/2014 None Full Exam - General Respiratory respiratory effort/rhythm Overall: no retractions 05/16/2014 None Full Exam - General Respiratory respiratory effort/rhythm Overall: normal rate 05/16/2014 None Full Exam - General Cardiovascular auscultation of heart Overall: regular rate 05/16/2014 None Full Exam - General Cardiovascular auscultation of heart Overall: normal heart sounds 05/16/2014 None Full Exam - General Abdomen abdominal exam Overall: no tenderness 05/16/2014 None Full Exam - General Abdomen abdominal exam Overall: normal bowel sounds 05/16/2014 None Full Exam - General Musculoskeletal head and neck Overall: head atraumatic 05/16/2014 None Full Exam - General Musculoskeletal head and neck Overall: cervical spine benign 05/16/2014 None Full Exam - General Musculoskeletal gait and station Overall: normal gait 05/16/2014 None Full Exam - General Musculoskeletal gait and station Overall: normal station 05/16/2014 None Full Exam - General Psychiatric orientation/consciousness Overall: oriented to person, place and time 05/16/2014 None Full Exam - General Integument inspection of skin Location: left arm 05/16/2014 None Full Exam - General Integument inspection of skin Location: right arm 05/16/2014 slighly erythematous rash over follicles Full Exam - General 1994 Constitutional general appearance Overall: well nourished 01/18/2013 None Full Exam - General 1995 Constitutional general appearance Overall: well developed 01/18/2013 None Full Exam - General 1994 Constitutional general appearance Overall: in no acute distress 01/18/2013 None Full Exam - General 1994 Psychiatric orientation/consciousness Overall: oriented to person, place and time 01/18/2013 None Full Exam - General 1994 Psychiatric mood and affect Mood: happy 01/18/2013 None Full Exam - General 1994 Psychiatric mood and affect Overall: normal mood and affect 01/18/2013 None Full Exam - General 1994 Respiratory respiratory effort/rhythm Overall: normal rate 01/18/2013 None Full Exam - General 1994 Respiratory respiratory effort/rhythm Overall: no retractions 01/18/2013 None Full Exam - General 1994 Respiratory auscultation Overall: breath sounds clear bilaterally 01/18/2013 None Full Exam - General 1994 Cardiovascular auscultation of heart Overall: regular rate 01/18/2013 None Full Exam - General 1994 Cardiovascular auscultation of heart Overall: normal heart sounds 01/18/2013 None Full Exam - General 1994 Cardiovascular auscultation of heart Overall: no murmurs 01/18/2013 None Full Exam - General 1994 Abdomen abdominal exam Overall: no tenderness 01/18/2013 None Full Exam - General 1994 Abdomen abdominal exam Overall: normal bowel sounds 01/18/2013 None Full Exam - General Constitutional general appearance Overall: well nourished 09/28/2012 None Full Exam - General Constitutional general appearance Overall: well developed 09/28/2012 None Full Exam - General Constitutional general appearance Overall: in no acute distress 09/28/2012 None Full Exam - General Eyes conjunctiva/ eyelids Overall: conjunctiva clear 09/28/2012 None Full Exam - General Eyes pupils and irises Overall: pupils equal, round, reactive to light and accomodation 09/28/2012 None Full Exam - General Ears/Nose/Throat otoscopic exam Overall: external auditory canals clear 09/28/2012 None Full Exam - General Ears/Nose/Throat otoscopic exam Overall: tympanic membranes clear 09/28/2012 None Full Exam - General Ears/Nose/Throat oral cavity/pharynx/larynx Overall: oral mucosa clear 09/28/2012 None Full Exam - General Respiratory auscultation Overall: breath sounds clear bilaterally 09/28/2012 None Full Exam - General Respiratory respiratory effort/rhythm Overall: no retractions 09/28/2012 None Full Exam - General Respiratory respiratory effort/rhythm Overall: normal rate 09/28/2012 None Full Exam - General Cardiovascular auscultation of heart Overall: regular rate 09/28/2012 None Full Exam - General Cardiovascular auscultation of heart Overall: normal heart sounds 09/28/2012 None Full Exam - General Abdomen abdominal exam Overall: no tenderness 09/28/2012 None Full Exam - General Abdomen abdominal exam Overall: normal bowel sounds 09/28/2012 None Full Exam - General Psychiatric orientation/consciousness Overall: oriented to person, place and time 09/28/2012 None Full Exam - General Musculoskeletal head and neck Overall: head atraumatic 09/28/2012 None Full Exam - General Musculoskeletal head and neck Overall: cervical spine benign 09/28/2012 None Full Exam - General Musculoskeletal gait and station Overall: normal gait 09/28/2012 None Full Exam - General Musculoskeletal gait and station Overall: normal station 09/28/2012 None Full Exam - General Constitutional general appearance Overall: well nourished 08/25/2012 None Full Exam - General Constitutional general appearance Overall: well developed 08/25/2012 None Full Exam - General Constitutional general appearance Overall: in no acute distress 08/25/2012 None Full Exam - General Eyes conjunctiva/ eyelids Overall: conjunctiva clear 08/25/2012 None Full Exam - General Eyes pupils and irises Overall: pupils equal, round, reactive to light and accomodation 08/25/2012 None Full Exam - General Ears/Nose/Throat otoscopic exam Overall: external auditory canals clear 08/25/2012 None Full Exam - General Ears/Nose/Throat otoscopic exam Overall: tympanic membranes clear 08/25/2012 None Full Exam - General Ears/Nose/Throat oral cavity/pharynx/larynx Overall: oral mucosa clear 08/25/2012 None Full Exam - General Respiratory auscultation Overall: breath sounds clear bilaterally 08/25/2012 None Full Exam - General Respiratory respiratory effort/rhythm Overall: no retractions 08/25/2012 None Full Exam - General Respiratory respiratory effort/rhythm Overall: normal rate 08/25/2012 None Full Exam - General Cardiovascular auscultation of heart Overall: regular rate 08/25/2012 None Full Exam - General Cardiovascular auscultation of heart Overall: normal heart sounds 08/25/2012 None Full Exam - General Abdomen abdominal exam Overall: no tenderness 08/25/2012 None Full Exam - General Abdomen abdominal exam Overall: normal bowel sounds 08/25/2012 None Full Exam - General Psychiatric orientation/consciousness Overall: oriented to person, place and time 08/25/2012 None Full Exam - General Neurologic cranial nerves CN12: a normal exam 08/25/2012 None Full Exam - General Neurologic cranial nerves CN 2-right eye: a normal exam 08/25/2012 None Full Exam - General Neurologic cranial nerves CN 2-left eye: a normal exam 08/25/2012 None Full Exam - General Neurologic cranial nerves CN3,4,6: extraocular movements intact 08/25/2012 None Full Exam - General Neurologic cranial nerves Left visual field: a normal exam 08/25/2012 None Full Exam - General Neurologic cranial nerves Pupillary size: Pupils equal 08/25/2012 None Full Exam - General Neurologic cranial nerves CN7: a normal exam 08/25/2012 None Full Exam - General Neurologic cranial nerves Right visual field: a normal exam 08/25/2012 None Full Exam - General Neurologic cranial nerves Visual field: a normal exam 08/25/2012 None Full Exam - General Lymphatic neck nodes Overall: anterior cervical chain benign 08/25/2012 None Full Exam - General Lymphatic neck nodes Overall: posterior cervical chain benign 08/25/2012 None Full Exam - General Cardiovascular auscultation of heart Overall: normal heart sounds 09/03/2011 None Full Exam - General Abdomen abdominal exam Overall: no tenderness 09/03/2011 None Full Exam - General Abdomen abdominal exam Overall: normal bowel sounds 09/03/2011 None Full Exam - General Psychiatric orientation/consciousness Overall: oriented to person, place and time 09/03/2011 None Full Exam - General Constitutional general appearance Overall: well nourished 09/03/2011 None Full Exam - General Constitutional general appearance Overall: well developed 09/03/2011 None Full Exam - General Constitutional general appearance Overall: in no acute distress 09/03/2011 None Full Exam - General Eyes conjunctiva/ eyelids Overall: conjunctiva clear 09/03/2011 None Full Exam - General Eyes pupils and irises Overall: pupils equal, round, reactive to light and accomodation 09/03/2011 None Full Exam - General Ears/Nose/Throat otoscopic exam Overall: external auditory canals clear 09/03/2011 None Full Exam - General Ears/Nose/Throat otoscopic exam Overall: tympanic membranes clear 09/03/2011 None Full Exam - General Ears/Nose/Throat oral cavity/pharynx/larynx Overall: oral mucosa clear 09/03/2011 None Full Exam - General Respiratory auscultation Overall: breath sounds clear bilaterally 09/03/2011 None Full Exam - General Respiratory respiratory effort/rhythm Overall: no retractions 09/03/2011 None Full Exam - General Respiratory respiratory effort/rhythm Overall: normal rate 09/03/2011 None Full Exam - General Cardiovascular auscultation of heart Overall: regular rate 09/03/2011 None Procedures Procedure Codes Date URINALYSIS NONAUTO W/O SCOPE CPT-4: 15532 12/29/2015 URINALYSIS NONAUTO W/O SCOPE CPT-4: 53936 11/16/2015 TRIAMCINOLONE ACET INJ NOS CPT-4: J3301 06/02/2014 Vital Signs Date Vital 01/16/2017 Blood Pressure 1: 120/85 Code : 8480-6 Heart Rate 1: 74 bpm SpO2: 97% Temperature: 37.2 (C) / 98.9 (F) Weight: 184 lbs 06/06/2016 Blood Pressure 1: 128/68 Code : 8480-6 BMI: 28.7 Code : 83253-5 Heart Rate 1 : 61 bpm Height: 5'6" SpO2: 97% Weight: 178 lbs 11/16/2015 Blood Pressure 1: 100/62 Code : 8480-6 BMI: 28.2 Code : 09232-0 Heart Rate 1 : 60 bpm Height: 5'6" SpO2: 98% Weight: 175 lbs 11/03/2014 Blood Pressure 1: 110/74 Code : 8480-6 BMI: 29.2 Code : 00727-5 Heart Rate 1 : 68 bpm Height: 5'6" Weight: 181 lbs 06/02/2014 Blood Pressure 1: 104/62 Code : 8480-6 BMI: 28.4 Code : 83291-6 Heart Rate 1 : 60 bpm Height: 5'6" Weight: 176 lbs 05/16/2014 Blood Pressure 1: 122/88 Code : 8480-6 BMI: 28.2 Code : 29480-3 Heart Rate 1 : 60 bpm Height: 5'6" Weight: 175 lbs 01/18/2013 Blood Pressure 1: 104/58 Code : 8480-6 BMI: 30.8 Code : 04037-1 Heart Rate 1 : 64 bpm Height: 5'6" Respiratory Rate: 16 bpm Weight: 191 lbs 09/28/2012 Blood Pressure 1: 98/68 Code : 8480-6 BMI: 31.3 Code : 14252-1 Heart Rate 1 : 64 bpm Height: 5'6" Weight: 194 lbs 08/25/2012 Blood Pressure 1: 98/68 Code : 8480-6 BMI: 31.0 Code : 79990-8 Heart Rate 1 : 68 bpm Height: 5'6" Respiratory Rate: 16 bpm Weight: 192 lbs 09/03/2011 Blood Pressure 1: 108/60 Code : 8480-6 BMI: 28.8 Code : 05955-1 Heart Rate 1 : 71 bpm Height: 5'6" Weight: 178 lbs 8 oz Functional Status No Functional Status data History of Present Illness Symptom Name Status Result Effective Date Notes anxiety Quality chronic 01/16/2017 None anxiety Onset and Resolution resolved 01/16/2017 None anxiety Onset of Symptom 10 years ago 01/16/2017 None anxiety Limitation on Activities does not limit activities 01/16/2017 None anxiety Frequency of Episodes unchanged 01/16/2017 None anxiety Triggers stress 01/16/2017 None anxiety Alleviating Factors medication 01/16/2017 Celexa well woman exam (40-65 years) Lifestyle normal sleep patterns 01/16/2017 None well woman exam (40-65 years) Control none 01/16/2017 None well woman exam (40-65 years) Nutrition and Exercise normal weight 01/16/2017 None well woman exam (40-65 years) Pap Smear normal results 01/16/2017 Annamarie Quick diabetes mellitus Quality non-insulin dependent 06/06/2016 None diabetes mellitus Onset of Symptom onset as an adult 06/06/2016 None diabetes mellitus Severity mild 06/06/2016 None diabetes mellitus Alleviating Factors diet 06/06/2016 None diabetes mellitus Pertinent Findings Denies dizziness 06/06/2016 None diabetes mellitus Pertinent Findings Denies dyspnea 06/06/2016 None mole check Location-Major on the neck 06/06/2016 None mole check Location-Major on the upper body 06/06/2016 None mole check Color brown 06/06/2016 None mole check Pertinent Findings Denies fever 06/06/2016 None mole check Pertinent Findings Denies pain 06/06/2016 None urinary frequency Onset and Resolution sudden in onset 11/16/2015 None urinary frequency Onset of Symptom 4 days ago 11/16/2015 None urinary frequency Pertinent Findings bladder pain 11/16/2015 None urinary urgency Onset and Resolution sudden in onset 11/16/2015 None urinary urgency Onset of Symptom 4 days ago 11/16/2015 None urinary urgency Limitation on Activities does not limit activities 11/16/2015 None urinary urgency Frequency of Episodes daily 11/16/2015 None urinary urgency Pertinent Findings bladder pain 11/16/2015 None shoulder pain Location on the right shoulder 11/03/2014 None shoulder pain Location anteriorly on the right shoulder 11/03/2014 None shoulder pain Quality constant 11/03/2014 None shoulder pain Onset and Resolution sudden in onset 11/03/2014 Tue into Wed- denies injury shoulder pain Alleviating Factors physical therapy 11/03/2014 massage therapy for 6 months on back and shoulders only helps for couple days shoulder pain Pertinent Findings point tenderness 11/03/2014 None shoulder pain Pertinent Findings limited range of motion 11/03/2014 None shoulder pain Exacerbating Factors activity 11/03/2014 None shoulder pain Exacerbating Factors abduction/external rotation 11/03/2014 None shoulder pain Exacerbating Factors forward elevation 11/03/2014 None earache Location right ear 06/02/2014 None earache Quality throbbing 06/02/2014 None earache Onset of Symptom 1 weeks ago 06/02/2014 None earache Frequency of Episodes daily 06/02/2014 None earache Significant Medical Conditions upper respiratory infection 06/02/2014 None earache Significant Medications antihistamine 06/02/2014 None earache Triggers allergies 06/02/2014 None earache Alleviating Factors medication 06/02/2014 None earache Exacerbating Factors medication 06/02/2014 None diabetes mellitus Quality non-insulin dependent 05/16/2014 None diabetes mellitus Blood glucose levels between 60 and 120 05/16/2014 last diabetes mellitus Test results Pt checking blood glucose readings, did not bring results to clinic 05/16/2014 None diabetes mellitus Urine ketones monitoring never to rarely 05/16/2014 None diabetes mellitus Glucose monitoring does not test 05/16/2014 None diabetes mellitus Pertinent Findings weight loss 05/16/2014 None diabetes mellitus Pertinent Findings Denies nausea 05/16/2014 None diabetes mellitus Pertinent Findings Denies lethargy 05/16/2014 None diabetes mellitus Pertinent Findings Denies dyspnea 05/16/2014 None diabetes mellitus Pertinent Findings Denies dizziness 05/16/2014 None diabetes mellitus Onset of Symptom onset as an adult 05/16/2014 None abnormal test results Detailed Test Result(s) hepatitis C + 01/18/2013 None abnormal test results Abnormal Indicator abnormal 01/18/2013 None abnormal test results Test Performed 3+ weeks ago 01/18/2013 None abnormal test results Significant Medical Conditions elevated liver enzymes prompted a hepatitis panel which was positive for hepatitis c 01/18/2013 None abnormal test results Additional Comments pt reports that when she was in college she tried cocaine and other drugs, but she had two deliveries and surgeries since that time and has not had abnormal tests previously 01/18/2013 None abnormal test results Pertinent Findings Denies weight loss 01/18/2013 None abnormal test results Pertinent Findings Denies edema 01/18/2013 None abnormal test results Pertinent Findings Denies chronic renal failure 01/18/2013 None abnormal test results Type of Test(s) Chemistry 12 and hepatitis panel 01/18/2013 None diabetes mellitus Quality non-insulin dependent 09/28/2012 None diabetes mellitus Onset of Symptom onset as an adult 09/28/2012 None diabetes mellitus Severity mild 09/28/2012 None diabetes mellitus Alleviating Factors diet 09/28/2012 None vision change Location in both eyes 09/28/2012 None vision change Quality stable 09/28/2012 None vision change Onset and Resolution sudden in onset 09/28/2012 None vision change Onset of Symptom 1 weeks ago 09/28/2012 None vision change Severity moderate 09/28/2012 None vision change Pertinent Findings Denies cough 09/28/2012 None vision change Pertinent Findings Denies dizziness 09/28/2012 None vision change Pertinent Findings Denies eye discharge 09/28/2012 None vision change Pertinent Findings Denies eye swelling 09/28/2012 None vision change Triggers no known associated factors 09/28/2012 None well woman exam (40-65 years) Pap Smear last normal performed on 09-08-11 08/25/2012 Dr. Molina does well woman examinations well woman exam (40-65 years) Menstrual History regular menses 08/25/2012 None well woman exam (40-65 years) Lifestyle no history of physical abuse 08/25/2012 None well woman exam (40-65 years) Control none 08/25/2012 None depression Pertinent Findings Denies exhaustion 08/25/2012 None depression Pertinent Findings Denies hopelessness 08/25/2012 None depression Pertinent Findings Denies helplessness 08/25/2012 None depression Pertinent Findings Denies lethargy 08/25/2012 None depression Pertinent Findings Denies self -harm 08/25/2012 None depression Pertinent Findings Denies worthlessness 08/25/2012 None depression Pertinent Findings Denies withdrawn 08/25/2012 None depression Pertinent Findings Denies suicidal ideation 08/25/2012 None well woman exam (40-65 years) Nutrition and Exercise overweight 08/25/2012 None well woman exam (40-65 years) Nutrition and Exercise regular diet 08/25/2012 None well woman exam (40-65 years) Cardiovascular Risk Factors obesity 08/25/2012 None well woman exam (40-65 years) Cardiovascular Risk Factors diabetes mellitus 08/25/2012 None well woman exam (40-65 years) Health Guidance baseline mammogram 08/25/2012 order for mammogram provided well woman exam (40-65 years) Health Guidance regular exercise 08/25/2012 None well woman exam (40-65 years) Health Guidance colonoscopy/sigmoidoscopy 08/25/2012 next year depression Quality chronic 08/25/2012 None depression Quality stable 08/25/2012 None depression Onset and Resolution ongoing 08/25/2012 None depression Onset of Symptom during adulthood 08/25/2012 None depression Limitation on Activities does not limit activities 08/25/2012 None depression Frequency of Episodes unchanged 08/25/2012 None depression Triggers no known associated factors 08/25/2012 None depression Alleviating Factors medication 08/25/2012 None depression Pertinent Findings Denies agitation 08/25/2012 None depression Pertinent Findings Denies anhedonia 08/25/2012 None depression Pertinent Findings Denies anxiety 08/25/2012 None diabetes mellitus Quality non-insulin dependent 09/03/2011 None diabetes mellitus Onset of Symptom onset as an adult 09/03/2011 None diabetes mellitus Severity mild 09/03/2011 None diabetes mellitus Test results HgbA1c level 6.1 09/03/2011 in April 2011 diabetes mellitus Glucose monitoring does not test 09/03/2011 None diabetes mellitus Alleviating Factors diet 09/03/2011 None depression Quality chronic 09/03/2011 None depression Onset and Resolution ongoing 09/03/2011 -well controlled on lexapro. depression Frequency of Episodes unchanged 09/03/2011 None depression Triggers stress 09/03/2011 None depression Alleviating Factors medication 09/03/2011 -states lexapro is working well. Advance Directives No Advance Directive data Encounters Encounter Performer Location Codes Date ([id number]) PREV VISIT EST AGE 40-64 Diagnosis: Encounter for general adult medical examination without abnormal findings[ICD10: Z00.00] Diagnosis: Encounter for screening for malignant neoplasm of colon[ICD10: Z12.11 ] Luisa Jordan MD, [facility] CPT-4: 22484 2016 ([id number]) PREV VISIT EST AGE 40-64 Diagnosis: Encounter for general adult medical examination with abnormal findings[ICD10: Z00.01] Diagnosis: Insect bite (nonvenomous), right lower leg, initial encounter[ICD10: S80.861A] Diagnosis: Rash and other nonspecific skin eruption[ICD10: R21] Luisa Jordan MD, [facility] CPT-4: 96816 06/06/2016 ([id number]) 29544 EST. PATIENT, LEVEL III Diagnosis: Dysuria[ICD10: R30.0] Diagnosis: Type 1 diabetes mellitus without complications[ICD10: E10.9] Luisa Jordan MD, [facility] CPT-4: 45243 11/16/2015 ([id number]) 21748 EST. PATIENT, LEVEL III Diagnosis: Biceps tendonitis on right[ICD9: 726.12] Beti Jordan MD, [facility] CPT-4: 60737 11/03/2014 ([id number]) 15920 EST. PATIENT, LEVEL III Diagnosis: ALLERGIC RHINITIS[ICD9: 477.9] Diagnosis: ACUTE SINUSITIS[ICD9: 461.9] Luisa Jordan MD, [facility] CPT-4: 93543 06/02/2014 ([id number]) 00736 EST. PATIENT, LEVEL IV Diagnosis: Rash[ICD9: 782.1] Diagnosis: Muscle ache[ICD9: 729.1] Diagnosis: Hemorrhoids[ICD9: 455.6] Diagnosis: DIABETES TYPE II[ICD9: 250.00] Beti Jordan MD, [facility] CPT- 4: 46632 05/16/2014 ([id number]) 19757 EST. PATIENT, LEVEL III Diagnosis: Hepatitis C antibody test positive[ICD9: 795.79] [facility] CPT-4: 94326 01/18/2013 ([id number]) 85455 EST. PATIENT, LEVEL IV Diagnosis: DIABETES TYPE II[SNOMED: 234890288] Diagnosis: Blurred vision[ICD9: 368.8] [facility] CPT- 4: 05079 09/28/2012 11052 EST. PATIENT, LEVEL IV Diagnosis: DIABETES TYPE II[SNOMED: 337290830] Diagnosis: DEPRESSIVE DISORDER NEC[ICD9: 311] Diagnosis: Obesity[ICD9: 278.00] Luisa Jordan MD, [facility] CPT-4: 98567 08/25/2012 [id number] EST. PATIENT, LEVEL III Diagnosis: DIABETES TYPE II[SNOMED: 173999335] Diagnosis: Depression[ICD9: 311] [facility] CPT-4: 68947 09/03/2011 Plan of Care Planned Activity Notes Codes Status Date Visit Plan: Well Adult - pt was counseled about diet, exercise, and encouraged to follow a heart healthy diet and increase activity level. The patient was instructed to RTC yearly for well adult exams and PRN for acute illnesses. The pt was also instructed to have yearly labs for check of cholesterol, thyroid, chem panel, CBC, and renal functioning. Due for colonoscpy-will refer to Dr Meeks 01/16/2017 Appointment: Luisa Barth WPtel: [id number] [facility] 01/16/2017 Patient Education: Patient Medication Summary Completed 01/16/2017 Patient Education: Patient Medication Summary Completed 01/13/2017 Visit Plan: Well Adult - pt was counseled about diet, exercise, and encouraged to follow a heart healthy diet and increase activity level. The patient was instructed to RTC yearly for well adult exams and PRN for acute illnesses. The pt was also instructed to have yearly labs for check of cholesterol, thyroid, chem panel, CBC, and renal functioning. Tick bite- joint pains-check tick panel [id number] for nystatin/triamcinolone cream-call if rash does not resolve 06/06/2016 Patient Education: Patient Medication Summary Completed 06/06/2016 Patient Education: Obesity Completed 06/06/2016 Patient Education: Patient Medication Summary Completed 06/03/2016 Appointment: Lab Draw 12/29/2015 Patient Education: Patient Medication Summary Completed 12/29/2015 Visit Plan: Urinary Tract Infection-discussed natural and expected course of this diagnosis and to alert me if symptoms do not follow expected course, or if any worse. UA positive for infection today in the office- plan to send for culture and will call patient with results. RX sent to patient' s pharmacy. Avoid tub baths, restrictive underwear, etc. Recommend patient start on probiotic while taking the antibiotic to prevent diarrhea. Patient verbalized understanding of plan. Diabetes-diet controlled-check labs 11/16/2015 Appointment: (15 min) Moderate 11/16/2015 Patient Education: Patient Medication Summary Completed 11/16/2015 Appointment: Physical 03/17/2015 Visit Plan: Biceps tendinitis - pt to do exercises as directed, anti-inflammatories directed to be taken per RX instructions and pt to call if symptoms are not improved. Pt to use tiger balm to shoulder, stretching, and monitor symptoms at home, call if not improving. Expect some improvement over the next 10 days. 11/03/2014 Appointment: Beti Jordan WPtel[facility] [facility] 11/03/2014 Patient Education: Patient Medication Summary Completed 11/03/2014 Visit Plan: Allergies - chronic - recommended pt to use allergy medication as prescribed. Pt has been counseled as the the appropriate use of the medication. Pt to call if allergy symptoms are not controlled with the medication. IKenalog injection today in the office. Sinusitis - Pt has acute infection - pain in face, maxillary region, Pt informed to use decongestant, RX given to patient, sinus rinses also recommended. Call if symptoms do not show improvement. 06/02/2014 Appointment: Sick 06/02/2014 Patient Education: Patient Medication Summary Completed 06/02/2014 Visit Plan: Diabetes Mellitus - controlled - per recent FSBS reports. I have recommended for the patient to have follow up labs prior to the next office visit. The patient has been instructed to continue with current medications as previously directed, continue with regular FSBS monitoring to assure continued control of diabetes. Pt to call for any acute concerns, complaints, or if the blood glucose readings are starting to become less controlled. Rash -suspect is allergy related, pt to start taking the claritin daily, monitor symptoms. Depression and hot flashes- recommended pt to change her celexa to twice daily dosing, monitor symptoms, and call the office if depression and anxiety is not well controlled. Hemorrhoids - rx for steroid cream for hemorrhoids sent electronically. 05/16/2014 Appointment: Beti Jordan WPtel: [phone] [facility] Follow up 05/16/2014 Patient Education: Patient Medication Summary Completed 05/16/2014 Visit Plan: Referral - to GI specialist due to hepatitis c positive status and abnormal liver enzymes. 01/18/2013 Appointment: Beti Jordan WPtel: [phone] [facility] Follow up 01/18/2013 Patient Education: Patient Medication Summary Completed 01/18/2013 Visit Plan: Diabetes Mellitus - Uncontrolled - per recent lab reports. I have recommended for the patient to have follow up labs prior to the next office visit. The patient has been instructed to continue low carbohydrate diet, and exercise. Pt to call for any acute concerns, complaints, or if the blood glucose readings are starting to become less controlled. I have recommended for the patient to follow more strictly to the diabetic diet as discussed in clinic to allow for greater blood glucose control. Vision changes - may be due to uncontrolled blood sugars causing edema in the lenses, and with improvement in the blood glucose, her strength of glasses needed may start changing. 09/28/2012 Appointment: [phone] [facility] 09/28/2012 Patient Education: Patient Medication Summary Completed 09/28/2012 Visit Plan: Diabetes Mellitus -diet controlled- I have recommended for the patient to have follow up labs prior to the next office visit. The patient has been instructed to continue with current medications as previously directed, continue with regular FSBS monitoring to assure continued control of diabetes. Pt to call for any acute concerns, complaints, or if the blood glucose readings are starting to become less controlled. Chronic Depression- the pt has symptoms of chronic depression that have been fairly well controlled since the last office visit. The pt has expected periods of exacerbation with abatement of the symptoms with change in situational exposure. No change in current medications. Obestiy-recent weight gain- recommend patient resume regular exercise 08/25/2012 Appointment: Luisa Barth WPtel: [phone] [facility] [place] [address] Other 08/25/2012 Patient Education: Patient Medication Summary Completed 08/25/2012 Visit Plan: Diabetes Mellitus - controlled. I have recommended for the patient to have follow up labs prior to the next office visit. The patient has been instructed to continue with current medications as previously directed, continue with regular FSBS monitoring to assure continued control of diabetes. Pt to call for any acute concerns, complaints, or if the blood glucose readings are starting to become less controlled. RX for HgbA1C provided for patient. Depression-well controlled-refill lexapro 09/03/2011 Appointment: Luisa Barth WPtel: [facility] [place] [address] Other 09/03/2011 Patient Education: Patient Medication Summary Completed 09/03/2011 Referral: Bharat Meeks Referral Completed Instructions Comment SCHEDULE COLONOSCOPY WITH DR. MEEKS . Well Adult - pt was counseled about diet, exercise, and encouraged to follow a heart healthy diet and increase activity level. The patient was instructed to RTC yearly for well adult exams and PRN for acute illnesses. The pt was also instructed to have yearly labs for check of cholesterol, thyroid, chem panel, CBC, and renal functioning. Due for colonoscpy-will refer to Dr Meeks . Diabetes Mellitus - controlled. I have recommended for the patient to have follow up labs prior to the next office visit. The patient has been instructed to continue with current medications as previously directed , continue with regular FSBS monitoring to assure continued control of diabetes. Pt to call for any acute concerns, complaints, or if the blood glucose readings are starting to become less controlled. RX for HgbA1C provided for patient. Depression-well controlled-refill lexapro . Allergies - chronic - recommended pt to use allergy medication as prescribed. Pt has been counseled as the the appropriate use of the medication. Pt to call if allergy symptoms are not controlled with the medication. IKenalog injection today in the office. Sinusitis - Pt has acute infection - pain in face, maxillary region, Pt informed to use decongestant, RX given to patient, sinus rinses also recommended. Call if symptoms do not show improvement. . Well Adult - pt was counseled about diet, exercise, and encouraged to follow a heart healthy diet and increase activity level. The patient was instructed to RTC yearly for well adult exams and PRN for acute illnesses. The pt was also instructed to have yearly labs for check of cholesterol, thyroid, chem panel, CBC, and renal functioning. Tick bite-joint pains-check tick panel [id number] for nystatin/triamcinolone cream-call if rash does not resolve try 1/2 celexa twice daily . Diabetes Mellitus - controlled - per recent FSBS reports. I have recommended for the patient to have follow up labs prior to the next office visit. The patient has been instructed to continue with current medications as previously directed, continue with regular FSBS monitoring to assure continued control of diabetes. Pt to call for any acute concerns, complaints, or if the blood glucose readings are starting to become less controlled. Rash -suspect is allergy related, pt to start taking the claritin daily, monitor symptoms. Depression and hot flashes- recommended pt to change her celexa to twice daily dosing, monitor symptoms, and call the office if depression and anxiety is not well controlled. Hemorrhoids - rx for steroid cream for hemorrhoids sent electronically. CHECK LABS . Urinary Tract Infection-discussed natural and expected course of this diagnosis and to alert me if symptoms do not follow expected course, or if any worse. UA positive for infection today in the office-plan to send for culture and will call patient with results. RX sent to patient's pharmacy. Avoid tub baths, restrictive underwear, etc. Recommend patient start on probiotic while taking the antibiotic to prevent diarrhea. Patient verbalized understanding of plan. Diabetes-diet controlled-check labs . Biceps tendinitis - pt to do exercises as directed, anti- inflammatories directed to be taken per RX instructions and pt to call if symptoms are not improved. Pt to use tiger balm to shoulder, stretching, and monitor symptoms at home, call if not improving. Expect some improvement over the next 10 days. . Diabetes Mellitus -diet controlled- I have recommended for the patient to have follow up labs prior to the next office visit. The patient has been instructed to continue with current medications as previously directed, continue with regular FSBS monitoring to assure continued control of diabetes. Pt to call for any acute concerns, complaints, or if the blood glucose readings are starting to become less controlled. Chronic Depression- the pt has symptoms of chronic depression that have been fairly well controlled since the last office visit. The pt has expected periods of exacerbation with abatement of the symptoms with change in situational exposure. No change in current medications. Obestiy-recent weight gain-recommend patient resume regular exercise . Diabetes Mellitus - Uncontrolled - per recent lab reports. I have recommended for the patient to have follow up labs prior to the next office visit. The patient has been instructed to continue low carbohydrate diet, and exercise. Pt to call for any acute concerns, complaints , or if the blood glucose readings are starting to become less controlled. I have recommended for the patient to follow more strictly to the diabetic diet as discussed in clinic to allow for greater blood glucose control. Vision changes - may be due to uncontrolled blood sugars causing edema in the lenses, and with improvement in the blood glucose, her strength of glasses needed may start changing. . Referral - to GI specialist due to hepatitis c positive status and abnormal liver enzymes.
--- OUTSIDE RECORDS SUMMARY | 2018-01-29 12:54 | XMS REPORT | Continuity of Care Document ---
Author Author [facility] Organization [facility] Address Unknown Phone Unavailable Allergies Active Description Code Type Severity Reaction Onset Reported/Identified Relationship to Patient Clinical Status Yes amoxicillin [id number] Drug Allergy Unknown HIVES/SWELLING 05/21/2017 Medications There is no data. Problems Date Dx Coded Attending Type Code Diagnosis Diagnosed By 03/24/2012 Ot 626.2 EXCESSIVE MENSTRUATION 11/10/2012 Ot 327.23 OBSTRUCTIVE SLEEP APNEA (ADULT) (PEDIATR 05/19/2015 DOC CARTY Ot V76.12 06/05/2015 DOC CARTY Ot V76.12 05/31/2016 Ot V17.49 FAMILY HISTORY OF OTHER CARDIOVASCULAR D 05/31/2016 Ot V70.0 ROUTINE MEDICAL EXAM 05/31/2016 Ot V72.62 LAB EXAM ORDERED PART OF A ROUTINE GE 05/31/2016 Ot 458.9 HYPOTENSION NOS 05/31/2016 Ot 790.29 OTHER ABNORMAL GLUCOSE 05/31/2016 Ot 790.29 OTHER ABNORMAL GLUCOSE 05/31/2016 Ot V76.12 OTH SCREEN MAMMO-MALIGN NEOPLASM OF [place] 05/31/2016 Ot 250.00 DIAB JUAN WO COMPL, TYPE II OR UNSPEC TY 05/31/2016 Ot 626.2 EXCESSIVE MENSTRUATION 05/31/2016 Ot 626.8 MENSTRUAL DISORDER NEC 05/31/2016 Ot 626.2 EXCESSIVE MENSTRUATION 05/31/2016 Ot V72.63 PRE- PROCEDURAL LABORATORY EXAMINATION 05/31/2016 Ot V74.8 SCREEN- BACTERIAL DIS NEC 05/31/2016 Ot 250.00 DIAB JUAN WO COMPL, TYPE II OR UNSPEC TY 05/31/2016 Ot 278.00 OBESITY, NOS 05/31/2016 Ot 311 DEPRESSIVE DISORDER NEC 05/31/2016 Ot V72.62 LAB EXAM ORDERED PART OF A ROUTINE GE 05/31/2016 Ot V76.12 OTH SCREEN MAMMO-MALIGN NEOPLASM OF [place] 05/31/2016 Ot 780.79 OTH MALAISE FATIGUE 05/31/2016 Ot 250.00 DIAB JUAN WO COMPL, TYPE II OR UNSPEC TY 05/31/2016 Ot 272.4 HYPERLIPIDEMIA NEC/NOS 05/31/2016 Ot 250.00 DIAB JUAN WO COMPL, TYPE II OR UNSPEC TY 05/31/2016 Ot 278.00 OBESITY, NOS 05/31/2016 Ot 790.5 ABN SERUM ENZY LEVEL NEC 05/31/2016 Ot 070.70 UNSPECIFIED VIRAL HEPATITIS C WITHOUT HE 05/31/2016 QUICKDOC BAR STAFF Ot V76.12 OTH SCREEN MAMMO-MALIGN NEOPLASM OF [place] 05/31/2016 DOC CARTY Ot V76.12 OTH SCREEN MAMMO-MALIGN NEOPLASM OF [place] 06/04/2016 DOC CARTY Ot Z12.31 ENCNTR SCREEN MAMMOGRAM FOR MALIGNANT NE 06/11/2016 Ot 458.9 HYPOTENSION NOS 06/11/2016 Ot 790.29 OTHER ABNORMAL GLUCOSE 06/11/2016 Ot 790.29 OTHER ABNORMAL GLUCOSE 06/11/2016 Ot V76.12 OTH SCREEN MAMMO-MALIGN NEOPLASM OF [place] 06/11/2016 Ot 250.00 JANIYA MARTINEZ WO COMPL, TYPE II OR UNSPEC TY 06/11/2016 Ot 626.2 EXCESSIVE MENSTRUATION 06/11/2016 Ot 626.8 MENSTRUAL DISORDER NEC 06/11/2016 Ot 626.2 EXCESSIVE MENSTRUATION 06/11/2016 Ot V72.63 PRE- PROCEDURAL LABORATORY EXAMINATION 06/11/2016 Ot V74.8 SCREEN- BACTERIAL DIS NEC 06/11/2016 Ot 250.00 JANIYA MARTINEZ WO COMPL, TYPE II OR UNSPEC TY 06/11/2016 Ot 278.00 OBESITY, NOS 06/11/2016 Ot 311 DEPRESSIVE DISORDER NEC 06/11/2016 Ot V72.62 LAB EXAM ORDERED PART OF A ROUTINE GE 06/11/2016 Ot V76.12 OTH SCREEN MAMMO-MALIGN NEOPLASM OF [place] 06/11/2016 Ot 780.79 OTH MALAISE FATIGUE 06/11/2016 Ot 250.00 DIAB JUAN WO COMPL, TYPE II OR UNSPEC TY 06/11/2016 Ot 272.4 HYPERLIPIDEMIA NEC/NOS 06/11/2016 Ot 250.00 DIAB JUAN WO COMPL, TYPE II OR UNSPEC TY 06/11/2016 Ot 278.00 OBESITY, NOS 06/11/2016 Ot 790.5 ABN SERUM ENZY LEVEL NEC 06/11/2016 Ot 070.70 UNSPECIFIED VIRAL HEPATITIS C WITHOUT HE 06/11/2016 QUICKDOC BAR STAFF Ot V76.12 OTH SCREEN MAMMO-MALIGN NEOPLASM OF [place] 06/11/2016 QUICKDOC BAR STAFF Ot V76.12 OTH SCREEN MAMMO-MALIGN NEOPLASM OF [place] 06/11/2016 QUICKDOC BAR STAFF Ot Z12.31 ENCNTR SCREEN MAMMOGRAM FOR MALIGNANT NE 03/12/2017 ADAN BARTHOLOMEW MD Ot Z01.818 ENCOUNTER FOR OTHER PREPROCEDURAL EXAMIN 03/12/2017 ADAN BARTHOLOMEW MD Ot Z12.11 ENCOUNTER FOR SCREENING FOR MALIGNANT NE 03/14/2017 ADAN BARTHOLOMEW MD Ot K57.30 DVRTCLOS OF LG INT W/O PERFORATION OR AB 03/14/2017 ADAN BARTHOLOMEW MD Ot K62.1 RECTAL POLYP 03/14/2017 ADAN BARTHOLOMEW MD Ot Z12.11 ENCOUNTER FOR SCREENING FOR MALIGNANT NE 03/14/2017 ADAN BARTHOLOMEW MD Ot Z86.19 PERSONAL HISTORY OF OTHER INFECTIOUS AND 03/20/2017 ADAN BARTHOLOMEW MD Ot K57.30 DVRTCLOS OF LG INT W/O PERFORATION OR AB 03/20/2017 ADAN BARTHOLOMEW MD Ot K62.1 RECTAL POLYP 03/20/2017 ADAN BARTHOLOMEW MD Ot Z12.11 ENCOUNTER FOR SCREENING FOR MALIGNANT NE 03/20/2017 ADAN BARTHOLOMEW MD Ot Z86.19 PERSONAL HISTORY OF OTHER INFECTIOUS AND 03/26/2017 ADAN BARTHOLOMEW MD Ot K57.30 DVRTCLOS OF LG INT W/O PERFORATION OR AB 03/26/2017 ADAN BARTHOLOMEW MD Ot K62.1 RECTAL POLYP 03/26/2017 ADAN BARTHOLOMEW MD Ot Z12.11 ENCOUNTER FOR SCREENING FOR MALIGNANT NE 03/26/2017 ADAN BARTHOLOMEW MD Ot Z86.19 PERSONAL HISTORY OF OTHER INFECTIOUS AND 05/04/2017 SLOAN CARPENTER APRN Ot M79.621 PAIN IN RIGHT UPPER ARM 05/04/2017 SLOAN CARPENTER APRN Ot S42.321A DISPLACED TRANSVERSE FX SHAFT OF HUMERUS 05/04/2017 SLOAN CARPENTER APRN Ot S70.311A ABRASION, RIGHT THIGH, INITIAL ENCOUNTER 05/04/2017 SLOAN CARPENTER APRN Ot S80.811A ABRASION, RIGHT LOWER LEG, INITIAL ENCOU 05/04/2017 SLOAN CARPENTER APRN Ot S80.812A ABRASION, LEFT LOWER LEG, INITIAL ENCOUN 05/04/2017 SLOAN CARPENTER APRN Ot W13.3XXA FALL THROUGH FLOOR, INITIAL ENCOUNTER 05/04/2017 SLOAN CARPENTER APRN Ot Y92.[address] IN SINGLE-FAMILY (PRIVATE) HO 05/04/2017 SLOAN CARPENTER APRN Ot Y93.E9 ACTIVITY, OTHER INTERIOR PROPERTY AND CL 05/04/2017 SLOAN CARPENTER APRN Ot Z90.49 ACQUIRED ABSENCE OF OTHER SPECIFIED PART 05/04/2017 SLOAN CARPENTER APRN Ot Z98.890 OTHER SPECIFIED POSTPROCEDURAL STATES 05/06/2017 SLOAN CARPENTER APRN Ot M79.621 PAIN IN RIGHT UPPER ARM 05/06/2017 SLOAN CARPENTER APRN Ot S42.321A DISPLACED TRANSVERSE FX SHAFT OF HUMERUS 05/06/2017 SLOAN CARPENTER APRN Ot S70.311A ABRASION, RIGHT THIGH, INITIAL ENCOUNTER 05/06/2017 SLOAN CARPENTER APRN Ot S80.811A ABRASION, RIGHT LOWER LEG, INITIAL ENCOU 05/06/2017 SLOAN CARPENTER APRN Ot S80.812A ABRASION, LEFT LOWER LEG, INITIAL ENCOUN 05/06/2017 SLOAN CARPENTER APRN Ot W13.3XXA FALL THROUGH FLOOR, INITIAL ENCOUNTER 05/06/2017 SLOAN CARPENTER APRN Ot Y92.[address] IN SINGLE-FAMILY (PRIVATE) HO 05/06/2017 SLOAN CARPENTER APRN Ot Y93.E9 ACTIVITY, OTHER INTERIOR PROPERTY AND CL 05/06/2017 SLOAN CARPENTER APRN Ot Z90.49 ACQUIRED ABSENCE OF OTHER SPECIFIED PART 05/06/2017 SLOAN CARPENTER APRN Ot Z98.890 OTHER SPECIFIED POSTPROCEDURAL STATES 09/26/2017 DOC CARTY Ot Z12.31 ENCNTR SCREEN MAMMOGRAM FOR MALIGNANT NE 10/02/2017 DOC CARTY Ot N63.11 UNSPECIFIED LUMP IN THE RIGHT BREAST, UP 10/02/2017 DOC CARTY Ot N64.89 OTHER SPECIFIED DISORDERS OF BREAST 01/22/2018 SARAI SOLARES, MIRA Ballesteros Ot K21.9 GASTRO-ESOPHAGEAL REFLUX DISEASE WITHOUT 01/22/2018 SARAI SOLARES, MIRA Ballesteros Ot R10.13 EPIGASTRIC PAIN 01/22/2018 SARIA SOLARES, MIRA Ballesteros Ot R13.10 DYSPHAGIA, UNSPECIFIED 01/22/2018 SARAI SOLARES, MIRA Ballesteros Ot Z01.818 ENCOUNTER FOR OTHER PREPROCEDURAL EXAMIN 01/22/2018 SARAI SOLARES, MIRA Ballesteros Ot Z88.1 ALLERGY STATUS TO OTHER ANTIBIOTIC AGENT 01/26/2018 SARAI SOLARES, MIRA Ballesteros Ot K21.9 GASTRO-ESOPHAGEAL REFLUX DISEASE WITHOUT 01/26/2018 SARAI SOLARES, MIRA Ballesteros Ot R10.13 EPIGASTRIC PAIN 01/26/2018 SARAI SOLARES, MIRA Ballesteros Ot R13.10 DYSPHAGIA, UNSPECIFIED 01/26/2018 SARAI SOLARES, MIRA Ballesteros Ot Z01.818 ENCOUNTER FOR OTHER PREPROCEDURAL EXAMIN 01/26/2018 SARAI SOLARES, MIRA Ballesteros Ot Z88.1 ALLERGY STATUS TO OTHER ANTIBIOTIC AGENT 01/27/2018 Ot 250.00 DIAB JUAN WO COMPL, TYPE II OR UNSPEC TY 01/27/2018 Ot 278.00 OBESITY, NOS 01/27/2018 Ot 311 DEPRESSIVE DISORDER NEC 01/27/2018 Ot V72.62 LAB EXAM ORDERED PART OF A ROUTINE GE 01/27/2018 Ot V76.12 OTH SCREEN MAMMO-MALIGN NEOPLASM OF [place] 01/27/2018 Ot 780.79 OTH MALAISE FATIGUE 01/27/2018 Ot 250.00 DIAB JUAN WO COMPL, TYPE II OR UNSPEC TY 01/27/2018 Ot 272.4 HYPERLIPIDEMIA NEC/NOS 01/27/2018 Ot 250.00 DIAB JUAN WO COMPL, TYPE II OR UNSPEC TY 01/27/2018 Ot 278.00 OBESITY, NOS 01/27/2018 Ot 790.5 ABN SERUM ENZY LEVEL NEC 01/27/2018 Ot 070.70 UNSPECIFIED VIRAL HEPATITIS C WITHOUT HE 01/27/2018 DOC CARTY Ot V76.12 OTH SCREEN MAMMO-MALIGN NEOPLASM OF [place] 01/27/2018 DOC CARTY Ot V76.12 OTH SCREEN MAMMO-MALIGN NEOPLASM OF [place] 01/27/2018 DOC CARTY Ot Z12.31 ENCNTR SCREEN MAMMOGRAM FOR MALIGNANT NE 01/27/2018 DOC CARTY W ZAHRA Ot Z12.31 ENCNTR SCREEN MAMMOGRAM FOR MALIGNANT NE 01/27/2018 CARLOZDOC ZAHRA Ot N63.11 UNSPECIFIED LUMP IN THE RIGHT BREAST, UP 01/27/2018 CARLOZ DOC Puga BAR STAFF Ot N64.89 OTHER SPECIFIED DISORDERS OF BREAST 01/27/2018 CARLOZDOCP Ot R92.8 OTH ABN AND INCONCLUSIVE FINDINGS ON DX 01/27/2018 CARLOZ DOC Puga BAR STAFF Ot Z98.890 OTHER SPECIFIED POSTPROCEDURAL STATES 01/29/2018 Ot 250.00 DIAB JUAN WO COMPL, TYPE II OR UNSPEC TY 01/29/2018 Ot 278.00 OBESITY, NOS 01/29/2018 Ot 311 DEPRESSIVE DISORDER NEC 01/29/2018 Ot V72.62 LAB EXAM ORDERED PART OF A ROUTINE GE 01/29/2018 Ot V76.12 OTH SCREEN MAMMO-MALIGN NEOPLASM OF [place] 01/29/2018 Ot 780.79 OTH MALAISE FATIGUE 01/29/2018 Ot 250.00 DIAB JUAN WO COMPL, TYPE II OR UNSPEC TY 01/29/2018 Ot 272.4 HYPERLIPIDEMIA NEC/NOS 01/29/2018 Ot 250.00 DIAB JUAN WO COMPL, TYPE II OR UNSPEC TY 01/29/2018 Ot 278.00 OBESITY, NOS 01/29/2018 Ot 790.5 ABN SERUM ENZY LEVEL NEC 01/29/2018 Ot 070.70 UNSPECIFIED VIRAL HEPATITIS C WITHOUT HE 01/29/2018 CARLOZ DOC Puga BAR STAFF Ot V76.12 OTH SCREEN MAMMO-MALIGN NEOPLASM OF [place] 01/29/2018 CARLOZ DOC Puga BAR STAFF Ot V76.12 OTH SCREEN MAMMO-MALIGN NEOPLASM OF [place] 01/29/2018 CARLOZ DOC Puga ZAHRA Ot Z12.31 ENCNTR SCREEN MAMMOGRAM FOR MALIGNANT NE 01/29/2018 CARLOZ DOC Vivien BAR STAFF Ot Z12.31 ENCNTR SCREEN MAMMOGRAM FOR MALIGNANT NE 01/29/2018 CARLOZ DOCAmanda SWEENEY Ot N63.11 UNSPECIFIED LUMP IN THE RIGHT BREAST, UP 01/29/2018 CARLOZ DOC Puga BAR STAFF Ot N64.89 OTHER SPECIFIED DISORDERS OF BREAST 01/29/2018 CARLOZ DOCAmanda SWEENEY Ot R92.8 OTH ABN AND INCONCLUSIVE FINDINGS ON DX 01/29/2018 DOC CARTY [facility] Ot Z98.890 OTHER SPECIFIED POSTPROCEDURAL STATES Procedures There is no data. Results Test Result Range Automated blood complete blood count (hemogram) panel - 05/04/17 16:08 Blood leukocytes automated count (number/volume) 6.9 10*3/uL 4.3-11.0 Blood erythrocytes automated count (number/volume) 4.78 10*6/uL 4.35-5.85 Venous blood hemoglobin measurement (mass/volume) 13.1 g/dL 11.5-16.0 Blood hematocrit (volume fraction) 40 % 35-52 Automated erythrocyte mean corpuscular volume 85 [foz_us] 80-99 Automated erythrocyte mean corpuscular hemoglobin (mass per erythrocyte) 27 pg 25-34 Automated erythrocyte mean corpuscular hemoglobin concentration measurement ( mass/volume) 32 g/dL 32-36 Automated erythrocyte distribution width ratio 13.3 % 10.0-14.5 Automated blood platelet count (count/volume) 241 10*3/uL 130-400 Automated blood platelet mean volume measurement 10.5 [foz_us] 7.4-10.4 Comprehensive metabolic panel - 05/04/17 16:08 Serum or plasma sodium measurement (moles/volume) 139 mmol/L 135-145 Serum or plasma potassium measurement (moles/volume) 3.9 mmol/L 3.6-5.0 Serum or plasma chloride measurement (moles/volume) 105 mmol/L 98-107 Carbon dioxide 21 mmol/L 21-32 Serum or plasma anion gap determination (moles/volume) 13 mmol/L 5-14 Serum or plasma urea nitrogen measurement (mass/volume) 21 mg/dL 7-18 Serum or plasma creatinine measurement (mass/volume) 0.82 mg/dL 0.60-1.30 Serum or plasma urea nitrogen/creatinine mass ratio 26 NRG Serum or plasma creatinine measurement with calculation of estimated glomerular filtration rate > NRG Serum or plasma glucose measurement (mass/volume) 116 mg/dL 70-105 Serum or plasma calcium measurement (mass/volume) 9.4 mg/dL 8.5-10.1 Serum or plasma total bilirubin measurement (mass/volume) 0.2 mg/dL 0.1-1.0 Serum or plasma alkaline phosphatase measurement (enzymatic activity/volume) 68 U/L 40-136 Serum or plasma aspartate aminotransferase measurement (enzymatic activity/ volume) 23 U/L 5-34 Serum or plasma alanine aminotransferase measurement (enzymatic activity/volume ) 25 U/L 0-55 Serum or plasma protein measurement (mass/volume) 7.6 g/dL 6.4-8.2 Serum or plasma albumin measurement (mass/volume) 4.2 g/dL 3.2-4.5 Encounters ACCT No. Visit Date/Time Discharge Status Pt. Type Provider Facility Loc./Unit Complaint [id number] 01/29/2018 07:23:00 01/29/2018 10:16:00 DIS Outpatient MIRA MOON MD [facility] ENDO DYSPHAGIA/GERD/ EPIGASTRIC PAIN [id number] 01/22/2018 05:39:00 01/22/2018 16:00:00 DIS Outpatient MIRA MOON MD [facility] PREOP EGD [id number] 10/06/2017 15:55:00 10/06/2017 23:59:59 CLS Preadmit DOC CARTY [facility] RAD R92.8 ABNORMAL MAMMO OF RT BREAST [id number] 10/02/2017 07:04:00 10/02/2017 23:59:59 CLS Outpatient DOC CARTY [facility] RAD ABNORMAL MAMMO [id number] 10/01/2017 08:00:00 10/01/2017 23:59:59 CLS Outpatient DOC CARTY [facility] RAD ABN MAMMO [id number] 09/25/2017 08:20:00 09/25/2017 23:59:59 CLS Outpatient DOC CARTY [facility] RAD Z12.31 SCREENING MAMMO [id number] 05/04/2017 15:59:00 05/04/2017 17:53:00 DIS Emergency SLOAN CARPENTER APRN [facility] ER FALL/R ARM INJ [id number] 03/14/2017 09:13:00 03/14/2017 11:25:00 DIS Outpatient ADAN BARTHOLOMEW MD [facility] ENDO SCREENING [id number] 03/12/2017 05:47:00 03/12/2017 15:22:00 DIS Outpatient FLOR[place] SOLARES, ADAN Ordoñez [facility] PREOP SCREENING COLONSCOPY [id number] 05/31/2016 07:21:00 05/31/2016 23:59:59 CLS Outpatient DOC CARTYP [facility] RAD SCREENING [id number] 05/18/2015 09:11:00 05/18/2015 23:59:59 CLS Outpatient DOC CARTY BAR STAFF [facility] RAD SCREENING [id number] 05/17/2014 14:22:00 05/17/2014 23:59:59 CLS Outpatient DOC CARTYP [facility] RAD ROUTINE [id number] 01/18/2013 16:50:00 Document Registration [id number] 01/13/2013 07:50:00 Document Registration [id number] 01/09/2013 09:20:00 Document Registration [id number] 11/10/2012 06:32:00 Document Registration [id number] 11/09/2012 20:56:00 Document Registration [id number] 11/05/2012 16:09:00 Document Registration [id number] 09/23/2012 08:42:00 Document Registration [id number] 03/24/2012 05:39:00 Document Registration [id number] 03/19/2012 08:43:00 Document Registration [id number] 02/26/2012 10:52:00 Document Registration [id number] 09/09/2011 08:49:00 Document Registration [id number] 09/09/2011 08:39:00 Document Registration [id number] 05/13/2011 16:17:00 Document Registration [id number] 01/12/2011 11:04:00 Document Registration [id number] 12/17/2010 07:10:00 Document Registration
--- OUTSIDE RECORDS SUMMARY | 2018-01-29 12:54 | XMS REPORT | CCD ---
Author Author [facility]i Jordan Organization [facility] Address [address] [place] [address] Phone Care Team Providers Care Secondary Art Teacher Name Role Phone Beti Jordan PP Unavailable CCM Unavailable Summary Purpose Interface Exchange Insurance Providers Payer name Policy type / Coverage type Covered republican ID Effective Begin Date Effective End Date [facility] [id number] 2015 Unknown Family history Sister Diagnosis Age [...] 09/09/2011 Employment Unknown Currently employed at [employer] 09/09/[address]: 784948133 Nonsmoker 09/09/[address]: 393527349 Never drinks alcohol 09/09/2011 Employment Unknown Currently employed billing dept [employer] 09/06/[address]: 277388273 Never smoker 09/06/[address]: 789556 Currently drinks alcohol couple times a year [...] Start Date Stop Date Status Fill Instructions Zyrtec-D 5 mg-120 mg tablet,extended release RxNorm: 9228045 Tablet(s) TAKE 1 TABLET BY MOUTH DAILY 12/02/20172017 Active Celexa 40 mg tablet RxNorm: 856205 Take one tablet by mouth daily in the evening 06/27/2017 No Stop Date Active No refills available Zyrtec-D 5 mg-120 mg tablet,extended release RxNorm: 1311274 Tablet(s) TAKE 1 TABLET BY MOUTH DAILY 06/05/20172016 Inactive Celexa 40 mg tablet RxNorm: 097222 1 Tablet(s) daily Take one tablet by mouth daily in the evening 03/12/2017 No Stop Date Active Celexa 40 mg tablet RxNorm: 301753 Take one tablet by mouth daily in the evening 11/28/2016 01/15/2017 Inactive No refills available Celexa 40 mg tablet RxNorm: 781501 Take one tablet by mouth daily in the evening 11/25/2016 01/15/2017 Inactive No refills available Celexa 40 mg tablet RxNorm: 092981 Take one tablet by mouth daily in the evening 11/25/2016 01/15/2017 Inactive No refills available glucosamine sulfate sodium Cl 1,000 mg tablet RxNorm: 116825 1 Tablet(s) PO BID 06/06/2016 No Stop Date Active triamcinolone acetonide 0.1 % topical cream RxNorm: 4804601 1 Application TOP BID 06/06/2016 06/15/2016 Inactive nystatin 100,000 unit/gram topical cream RxNorm: 174015 1 Application TOP BID 06/06/2016 06/15/2016 Inactive Zyrtec-D 5 mg-120 mg tablet,extended release RxNorm: 9406157 Tablet(s) TAKE 1 TABLET BY MOUTH DAILY 05/03/20162015 Inactive Celexa 40 mg tablet RxNorm: 264819 Tablet(s) TAKE ONE TABLET BY MOUTH EVERY EVENING 02/22/2016 11/17/2016 Inactive Bactrim DS 800 mg-160 mg tablet RxNorm: 090366 1 Tablet(s) PO BID 11/16/2015 11/22/2015 Inactive Zyrtec-D 5 mg-120 mg tablet,extended release RxNorm: 6994342 Tablet(s) TAKE 1 TABLET BY MOUTH DAILY 08/14/20152014 Inactive Celexa 40 mg tablet RxNorm: 004193 TAKE ONE TABLET BY MOUTH EVERY EVENING 06/06/2015 02/21/2016 Inactive Zyrtec-D 5 mg-120 mg tablet,extended release RxNorm: 8054686 TAKE 1 TABLET BY MOUTH DAILY 05/18/2015 06/09/2015 Inactive Zyrtec-D 5 mg-120 mg tablet,extended release RxNorm: 1218474 Tablet(s) TAKE 1 TABLET BY MOUTH ONCE DAILY 03/17/2015 Inactive (Response to an electronic controlled substance refill request [id number]| 1|0|1) Zyrtec-D 5 mg-120 mg tablet,extended release RxNorm: 4333570 TAKE 1 TABLET BY MOUTH ONCE DAILY 01/02/2015 01/30/2015 Inactive (Response to an electronic controlled substance refill request - [facility] [id number]|1|0|1) prednisone 20 mg tablet RxNorm: 240731 3 Tablet(s) PO daily x 3 days 09/19/2014 09/18/2014 Inactive prednisone 20 mg tablet RxNorm: 931997 3 Tablet(s) PO daily x 3 days 09/19/2014 09/21/2014 Inactive Celexa 40 mg tablet RxNorm: 427036 1 Tablet(s) PO QPM 201301/15/2017 Inactive Zyrtec-D 5 mg-120 mg tablet,extended release RxNorm: 6551507 1 Tablet(s) PO daily 08/23/2014 01/02/2015 Inactive Zyrtec-D 5 mg-120 mg tablet,extended release RxNorm: 4896888 1 Tablet(s) PO daily 06/15/2014 07/14/2014 Inactive Zyrtec-D 5 mg-120 mg tablet,extended release RxNorm: 1801057 1 Tablet(s) PO daily 06/15/2014 06/14/2014 Inactive Kenalog 40 mg/mL suspension for injection RxNorm: 4919194 1 Milliliter(s) Inj 06/02/2014 06/02/2014 Inactive Bactrim DS 800 mg-160 mg tablet RxNorm: 128298 1 Tablet(s) PO BID 06/02/2014 06/11/2014 Inactive Celexa 40 mg tablet RxNorm: 534968 1 Tablet(s) PO QPM 201308/24/2014 Inactive Celexa 40 mg tablet RxNorm: 038774 1 Tablet(s) PO QPM 201305/15/2014 Inactive mupirocin 2 % topical ointment RxNorm: 651771 1 Application TOP TID 05/16/2014 05/22/2014 Inactive Proctofoam 1 % topical RxNorm: 920985 1 Application TOP BID 07/14/2014 Inactive Lexapro 20 mg tablet RxNorm: 685305 2 Tablet(s) PO daily 2 tablets by mouth daily 02/22/2013 02/16/2014 Inactive Lexapro 20 mg tablet RxNorm: 630353 1 Tablet(s) PO daily 201102/21/2013 Inactive Lexapro 20 mg tablet RxNorm: 907110 1 Tablet(s) PO daily 201008/24/2012 Inactive Lexapro 20 mg Tab RxNorm: 032540 1 Tablet(s) PO daily 201009/15/2011 Inactive multivitamin Cap RxNorm: 1 Capsule(s) PO daily No Start Date Active chromium 1 mg capsule RxNorm: 1 Capsule(s) PO BID No Start Date Active Vitamin B RxNorm: 1 PO daily No Start Date 01/15/2017 Inactive CoQ-10 100 mg capsule RxNorm: 734864 1 Capsule(s) PO daily No Start Date 11/02/2014 Inactive Celexa 20 mg tablet RxNorm: 932148 1 Tablet(s) PO daily No Start Date 03/11/2017 Inactive Cinnamon 500 mg Cap RxNorm: 153260 1 Capsule(s) PO daily No Start Date 01/11/2013 Inactive Vitamin C RxNorm: 1 PO daily No Start Date 01/15/2017 Inactive Lexapro 20 mg Tab RxNorm: 459821 1 Tablet(s) PO daily No Start Date 09/02/2011 Inactive Dennard Oil 1,000 mg capsule RxNorm: 1 Capsule(s) PO daily No Start Date 11/02/2014 Inactive Lutera (28) 0.1 mg-20 mcg Tab RxNorm: 861937 1 Tablet(s) PO daily No Start Date 08/24/2012 Inactive glucosamine sulfate sodium Cl 1,000 mg tablet RxNorm: 021112 1 Tablet(s) PO daily No Start Date 11/02/2014 Inactive Xanax 0.25 mg tablet RxNorm: 695736 1 Tablet(s) PO PRN No Start Date 01/15/2017 Inactive Medication Administered Medication Codes Instructions Start Date Status Kenalog 40 mg/mL suspension for injection RxNorm: 5466399 1Milliliter 06/02/2014 No longer Active Immunizations Vaccine [...] initial encounter ICD-10: S80.861A ICD-9: 916.4 06/06/2016 Rash and other nonspecific skin eruption ICD-10: R21 ICD-9: 782.1 06/06/2016 Encounter for general adult medical examination with abnormal findings ICD-10: Z00.01 ICD-9: V70.0 06/06/2016 Dysuria ICD-10: R30.0 ICD-9: 788.1 12/29/2015 Biceps tendonitis on right ICD-9: 726.12 11/03/2014 ALLERGIC RHINITIS ICD-9: 477.9 2013 ACUTE SINUSITIS ICD-9: 461.9 06/02/2014 Hemorrhoids ICD-9: 455.6 05/16/2014 Muscle ache ICD-9: 729.1 05/16/2014 DIABETES TYPE II ICD-9: 250.00 2013 Rash ICD-9: 782.1 05/16/2014 Hepatitis C antibody test positive ICD-9: 795.79 [...] Observation Code Item Item Code Result Date LIPID GRP CHOLESTEROL 182 mg/dL 01/15/2017 LIPID GRP Triglyceride 73 mg/dL 01/15/2017 LIPID GRP HDL CHOLESTEROL 60 mg/dL 01/15/2017 LIPID GRP Chol/HDL Ratio 3.03 ratio 01/15/2017 LIPID GRP NON-HDL Chol 122 mg/dL 01/15/2017 LIPID GRP [id number] LDL Cholesterol 107 mg/dL 01/15/2017 CHEM 14 0697234 AST 25 U/L 01/15/2017 CHEM 14 8996528 ALT 27 U/L 01/15/2017 CHEM 14 8934008 BUN 16 mg/dL 01/15/2017 CHEM 14 8600361 ALBUMIN 4.6 g/dL 01/15/2017 CHEM 14 4210692 CHLORIDE 103 mmol/L 01/15/2017 CHEM 14 0980309 Bili Total 0.5 mg/dL 01/15/2017 CHEM 14 3600493 ALK PHOS 59 U/L 01/15/2017 CHEM 14 6864972 SODIUM 140 mmol/L 01/15/2017 CHEM 14 8342919 CREATININE 0.69 mg/dL 01/15/2017 CHEM 14 5614890 CALCIUM 10.0 mg/dL 01/15/2017 CHEM 14 1026483 POTASSIUM 4.3 mmol/L 01/15/2017 CHEM 14 0703574 TOTAL PROTEIN 7.6 g/dL 01/15/2017 CHEM 14 0149964 GLUCOSE 117 mg/dL 01/15/2017 CHEM 14 6156342 Bicarbonate 27 mmol/L 01/15/2017 CHEM 14 1725768 AGAP 10 mmol/L 01/15/2017 CBC 0028689 WBC 3.4 10e9/L 01/15/2017 CBC 6880914 RBC 5.07 10e12/L 01/15/2017 CBC 9485277 HEMOGLOBIN 13.8 g/dL 01/15/2017 CBC 4594120 HEMATOCRIT 42.4 % 01/15/2017 CBC 3425227 MCV 83.6 fL 01/15/2017 CBC 4349826 MCH 27.2 pg 01/15/2017 CBC 9596214 MCHC 32.5 g/dL 01/15/2017 CBC 1817211 PLATELET COUNT 201 10e9/L 01/15/2017 CBC 2712604 Mean Plt Volume 10.5 fL 01/15/2017 CBC 4030688 Neut Auto 44.6 % 01/15/2017 CBC 6007846 Lymph Auto 38.5 % 01/15/2017 CBC 4263709 [place] Auto 14.6 % 01/15/2017 CBC 6198476 Eos Auto 2.0 % 01/15/2017 CBC 9226229 RDW 14.1 % 01/15/2017 CBC 4393203 Baso Auto 0.3 % 01/15/2017 CBC 9189525 Neutrophil Abs 1.52 10e9/L 01/15/2017 CBC 3261153 Lymphocyte Abs 1.31 10e9/L 01/15/2017 CBC 7653568 Monocyte Abs 0.50 10e9/L 01/15/2017 CBC 0879618 Eosinophil Abs 0.07 10e9/L 01/15/2017 CBC 8886403 RDW-SD 42.4 fL 01/15/2017 CBC 5282062 Basophil Abs 0.01 10e9/L 01/15/2017 TSH 1314710 TSH 2.782 uIU/mL 01/15/2017 GFR CALC 3295396 GFR Non Afr Amr >60 mL/min 01/15/2017 GFR CALC 2926151 GFR Afr Amr >60 mL/min 01/15/2017 MEAN GLUC 8214778 Calc Mean Gluc 123 mg/dL 01/15/2017 A1C HPLC 6226251 Hgb A1c 93029-0 5.9 % 01/15/2017 E CHAFF AB 9947512 E Chaff IgG <1:16 06/07/2016 E CHAFF AB 6676976 E Chaff IgM <1:10 06/07/2016 TULAREM AB 5560482 [place] Ab <1:20 06/07/2016 RMSF IFA 7710256 RMSF IgG <1:16 06/07/2016 RMSF IFA 3112929 RMSF IgM <1:10 06/07/2016 LIPID GRP CHOLESTEROL 146 mg/dL 06/04/2016 LIPID GRP Triglyceride 59 mg/dL 06/04/2016 LIPID GRP HDL CHOLESTEROL 57 mg/dL 06/04/2016 LIPID GRP Chol/HDL Ratio 2.56 ratio 06/04/2016 LIPID GRP NON-HDL Chol 89 mg/dL 06/04/2016 LIPID GRP LDL Cholesterol 77 mg/dL 06/04/2016 CHEM 14 0391136 AST 19 U/L 06/04/2016 CHEM 14 9867607 ALT 21 U/L 06/04/2016 CHEM 14 9686020 BUN 18 mg/dL 06/04/2016 CHEM 14 9003931 ALBUMIN 4.5 g/dL 06/04/2016 CHEM 14 1296385 CHLORIDE 103 mmol/L 06/04/2016 CHEM 14 2991332 Bili Total 0.6 mg/dL 06/04/2016 CHEM 14 5392445 ALK PHOS 57 U/L 06/04/2016 CHEM 14 9574233 SODIUM 138 mmol/L 06/04/2016 CHEM 14 4130808 CREATININE 0.63 mg/dL 06/04/2016 CHEM 14 2521944 CALCIUM 9.7 mg/dL 06/04/2016 CHEM 14 8889094 POTASSIUM 4.0 mmol/L 06/04/2016 CHEM 14 5902799 TOTAL PROTEIN 7.4 g/dL 06/04/2016 CHEM 14 0187047 GLUCOSE 108 mg/dL 06/04/2016 CHEM 14 1260480 Bicarbonate 25 mmol/L 06/04/2016 CHEM 14 3545542 AGAP 10 mmol/L 06/04/2016 CBC 2143750 WBC 3.9 10e9/L 06/04/2016 CBC 0862149 RBC 4.71 10e12/L 06/04/2016 CBC 4442240 HEMOGLOBIN 13.0 g/dL 06/04/2016 CBC 8309778 HEMATOCRIT 39.4 % 06/04/2016 CBC 4546898 MCV 83.7 fL 06/04/2016 CBC 8075799 MCH 27.6 pg 06/04/2016 CBC 4806615 MCHC 33.0 g/dL 06/04/2016 CBC 8536965 PLATELET COUNT 216 10e9/L 06/04/2016 CBC 8303484 Mean Plt Volume 11.0 fL 06/04/2016 CBC 9828241 Neut Auto 46.8 % 06/04/2016 CBC 0583685 Lymph Auto 43.3 % 06/04/2016 CBC 6779789 [place] Auto 8.1 % 06/04/2016 CBC 8870351 Eos Auto 1.5 % 06/04/2016 CBC 8883713 RDW 13.8 % 06/04/2016 CBC 8581659 Baso Auto 0.3 % 06/04/2016 CBC 9446086 Neutrophil Abs 1.83 10e9/L 06/04/2016 CBC 9556614 Lymphocyte Abs 1.69 10e9/L 06/04/2016 CBC 9877707 Monocyte Abs 0.32 10e9/L 06/04/2016 CBC 2531475 Eosinophil Abs 0.06 10e9/L 06/04/2016 CBC 1742271 RDW-SD 41.2 fL 06/04/2016 CBC 4870289 Basophil Abs 0.01 10e9/L 06/04/2016 TSH 9415441 TSH 2.341 uIU/mL 06/04/2016 GFR CALC 2019607 GFR Non Afr Amr >60 mL/min 06/04/2016 GFR CALC 1779007 GFR Afr Amr >60 mL/min 06/04/2016 MEAN GLUC 3149090 Mean Glucose 120 mg/dL 06/04/2016 VIT D TOTL 6179387 Vitamin D 25 OH 68 ng/mL 06/04/2016 A1C HPLC 7444877 Hgb A1c 23603-3 5.8 % 06/04/2016 A1C HPLC 3739610 A1C HPLC 85420-5 5.8 % 11/29/2015 CHEM 14 5880345 AST 21 U/L 11/29/2015 CHEM 14 5914737 ALT 22 IU/L 11/29/2015 CHEM 14 8852577 BUN 15 MG/DL 11/29/2015 CHEM 14 2654011 ALBUMIN 4.8 GM/DL 11/29/2015 CHEM 14 9226323 CHLORIDE 105 MMOL/L 11/29/2015 CHEM 14 4811809 BILI TOT 0.6 MG/DL 11/29/2015 CHEM 14 1441140 ALK PHOS 61 U/L 11/29/2015 CHEM 14 9409658 SODIUM 142 MMOL/L 11/29/2015 CHEM 14 3657596 CREATININE 0.71 MG/DL 11/29/2015 CHEM 14 8466944 CALCIUM 9.9 MG/DL 11/29/2015 CHEM 14 8850326 POTASSIUM 3.9 MMOL/L 11/29/2015 CHEM 14 0748613 PROT TOT 7.7 GM/DL 11/29/2015 CHEM 14 6203006 GLUCOSE 104 MG/DL 11/29/2015 CHEM 14 9183374 BICARB 31 MMOL/L 11/29/2015 CHEM 14 6873745 ANION GAP 6 MEQ/L 11/29/2015 TSH 9304131 TSH 1.709 uIU/ML 11/29/2015 GFR CALC 1521684 GFR AA >60 ML/MIN 11/29/2015 GFR CALC 2650365 GFR NON-AA >60 ML/MIN 11/29/2015 CBC 1582711 WBC 4.2 10e9/L 11/29/2015 CBC 7713014 RBC 4.97 10e12/L 11/29/2015 CBC 9993209 HGB 13.4 g/dL 11/29/2015 CBC 7497500 HCT DET 41.7 % 11/29/2015 CBC 6564002 MCV 83.9 fL 11/29/2015 CBC 4288726 MCH 27.0 pg 11/29/2015 CBC 9886177 MCHC 32.1 g/dL 11/29/2015 CBC 6131594 PLT 218 10e9/L 11/29/2015 CBC 4300162 MPV 10.6 fL 11/29/2015 CBC 1926471 LARISSA % 44.4 % 11/29/2015 CBC 9428420 LY % 45.5 % 11/29/2015 CBC 0022307 MON % 7.5 % 11/29/2015 CBC 4214964 EOS % 2.4 % 11/29/2015 CBC 3873771 BASO % 0.2 % 11/29/2015 CBC 3650991 RDW 13.5 % 11/29/2015 CBC 8015468 ABS LARISSA 1.86 10e9/L 11/29/2015 CBC 4796928 ABS LYMPH 1.91 10e9/L 11/29/2015 CBC 7755836 ABS MONO 0.32 10e9/L 11/29/2015 CBC 0216734 ABS EOS 0.10 10e9/L 11/29/2015 CBC 2001113 ABS BASO 0.01 10e9/L 11/29/2015 CBC 4273394 RDW-SD 40.9 fL 11/29/2015 URIC ACID 6124147 URIC ACID 6.2 MG/DL 11/29/2015 LIPID GRP HDL TEST 58 MG/DL 11/29/2015 LIPID GRP TRIG 84 MG/DL 11/29/2015 LIPID GRP TEST LDL 75 MG/DL 11/29/2015 LIPID GRP CHOL 150 MG/DL 11/29/2015 LIPID GRP RCHOL/HDL 2.59 RATIO 11/29/2015 LIPID GRP NON-HDL CH 92 MG/DL 11/29/2015 Culture Urine [id number] URINE CULTURE SEE NOTES 11/20/2015 Culture Urine [id number] Continued Results 11/20/2015 Urine Culture Ucult Complete >100,000 col/ml aerobic growth sent to ref lab 11/17/2015 TSH 3868182 TSH 2.397 uIU/ML 05/25/2014 A1C HPLC 8192048 A1C HPLC 56652-4 5.7 % 05/25/2014 GFR CALC 6897892 GFR AA >60 ML/MIN 05/25/2014 GFR CALC 5916144 GFR NON-AA >60 ML/MIN 05/25/2014 LIPID GRP HDL TEST 46 MG/DL 05/25/2014 LIPID GRP 1683743 TRIG 113 MG/DL 05/25/2014 LIPID GRP TEST LDL 102 MG/DL 05/25/2014 LIPID GRP CHOL 171 MG/DL 05/25/2014 LIPID GRP RCHOL/HDL 3.72 RATIO 05/25/2014 LIPID GRP NON-HDL CH 125 MG/DL 05/25/2014 CHEM 14 9568293 AST 17 U/L 05/25/2014 CHEM 14 6225689 ALT 19 IU/L 05/25/2014 CHEM 14 5231055 BUN 16 MG/DL 05/25/2014 CHEM 14 9798567 ALBUMIN 4.5 GM/DL 05/25/2014 CHEM 14 0535765 CHLORIDE 105 MMOL/L 05/25/2014 CHEM 14 9807430 BILI TOT 0.4 MG/DL 05/25/2014 CHEM 14 1198064 ALK PHOS 43 U/L 05/25/2014 CHEM 14 5616184 SODIUM 138 MMOL/L 05/25/2014 CHEM 14 8322269 CREATININE 0.69 MG/DL 05/25/2014 CHEM 14 7252513 CALCIUM 9.7 MG/DL 05/25/2014 CHEM 14 7668309 POTASSIUM 4.1 MMOL/L 05/25/2014 CHEM 14 7579164 PROT TOT 8.0 GM/DL 05/25/2014 CHEM 14 4551319 GLUCOSE 113 MG/DL 05/25/2014 CHEM 14 5745744 BICARB 28 MMOL/L 05/25/2014 CHEM 14 2000844 ANION GAP 5 MEQ/L 05/25/2014 CBC 7063302 WBC 3.7 10e9/L 05/25/2014 CBC 6098422 RBC 4.41 10e12/L 05/25/2014 CBC 0573152 HGB 12.3 g/dL 05/25/2014 CBC 0063813 HCT DET 37.6 % 05/25/2014 CBC 1703331 MCV 85.3 fL 05/25/2014 CBC 1073561 MCH 27.9 pg 05/25/2014 CBC 8172594 MCHC 32.7 g/dL 05/25/2014 CBC 7773106 PLT 228 10e9/L 05/25/2014 CBC 6222177 MPV 11.1 fL 05/25/2014 CBC 5953100 LARISSA % 49.4 % 05/25/2014 CBC 5475521 LY % 35.8 % 05/25/2014 CBC 3014239 MON % 12.9 % 05/25/2014 CBC 3924348 EOS % 1.6 % 05/25/2014 CBC 0710961 BASO % 0.3 % 05/25/2014 CBC 9839082 RDW 13.7 % 05/25/2014 CBC 6947057 ABS LARISSA 1.83 10e9/L 05/25/2014 CBC 2269219 ABS LYMPH 1.32 10e9/L 05/25/2014 CBC 1464156 ABS MONO 0.48 10e9/L 05/25/2014 CBC 0225663 ABS EOS 0.06 10e9/L 05/25/2014 CBC 0008691 ABS BASO 0.01 10e9/L 05/25/2014 CBC 2562751 RDW-SD 41.9 fL 05/25/2014 Review of Systems [...] developed 01/18/2013 None Full Exam - General 1995 Constitutional general appearance Overall: in no acute [...] Codes Date URINALYSIS NONAUTO W/O SCOPE CPT-4: 81348 12/29/2015 URINALYSIS NONAUTO W/O SCOPE CPT-4: 79616 11/16/2015 TRIAMCINOLONE ACET INJ NOS CPT-4: J3301 06/02/2014 Vital Signs Date Vital 01/16/2017 Blood Pressure 1: 120/85 Code : 8480-6 Heart Rate 1: 74 bpm SpO2: 97% Temperature: 37.2 (C) / 98.9 (F) Weight: 184 lbs 06/06/2016 Blood Pressure 1: 128/68 Code : 8480-6 BMI: 28.7 Code : 00402-4 Heart Rate 1 : 61 bpm Height: 5'6" SpO2: 97% Weight: 178 lbs 11/16/2015 Blood Pressure 1: 100/62 Code : 8480-6 BMI: 28.2 Code : 34352-3 Heart Rate 1 : 60 bpm Height: 5'6" SpO2: 98% Weight: 175 lbs 11/03/2014 Blood Pressure 1: 110/74 Code : 8480-6 BMI: 29.2 Code : 02172-5 Heart Rate 1 : 68 bpm Height: 5'6" Weight: 181 lbs 06/02/2014 Blood Pressure 1: 104/62 Code : 8480-6 BMI: 28.4 Code : 66504-5 Heart Rate 1 : 60 bpm Height: 5'6" Weight: 176 lbs 05/16/2014 Blood Pressure 1: 122/88 Code : 8480-6 BMI: 28.2 Code : 61423-1 Heart Rate 1 : 60 bpm Height: 5'6" Weight: 175 lbs 01/18/2013 Blood Pressure 1: 104/58 Code : 8480-6 BMI: 30.8 Code : 08607-1 Heart Rate 1 : 64 bpm Height: 5'6" Respiratory Rate: 16 bpm Weight: 191 lbs 09/28/2012 Blood Pressure 1: 98/68 Code : 8480-6 BMI: 31.3 Code : 20507-5 Heart Rate 1 : 64 bpm Height: 5'6" Weight: 194 lbs 08/25/2012 Blood Pressure 1: 98/68 Code : 8480-6 BMI: 31.0 Code : 42207-9 Heart Rate 1 : 68 bpm Height: 5'6" Respiratory Rate: 16 bpm Weight: 192 lbs 09/03/2011 Blood Pressure 1: 108/60 Code : 8480-6 BMI: 28.8 Code : 90605-0 Heart Rate 1 : 71 bpm Height: [...] years) Pap Smear normal results 01/16/2017 Annamarie London diabetes mellitus Quality non-insulin dependent 06/06/2016 None [...] Resolution sudden in onset 11/03/2014 Tue into Fri- denies injury shoulder pain Alleviating Factors physical [...] data Encounters Encounter Performer Location Codes Date ([id number]) PREV VISIT EST AGE 40-64 Diagnosis: Encounter for general adult medical examination without abnormal findings[ICD10: Z00.00] Diagnosis: Encounter for screening for malignant neoplasm of colon[ICD10: Z12.11 ] Luisa Jordan MD, [facility] CPT-4: 29733 2016 ([id number]) PREV VISIT EST AGE 40-64 Diagnosis: Encounter for general adult medical examination with abnormal findings[ICD10: Z00.01] Diagnosis: Insect bite (nonvenomous), right lower leg, initial encounter[ICD10: S80.861A] Diagnosis: Rash and other nonspecific skin eruption[ICD10: R21] Luisa Jordan MD, [facility] CPT-4: 43844 06/06/2016 ([id number]) 00186 EST. PATIENT, LEVEL III Diagnosis: Dysuria[ICD10: R30.0] Diagnosis: Type 1 diabetes mellitus without complications[ICD10: E10.9] Luisa Jordan MD, [facility] CPT-4: 02672 11/16/2015 ([id number]) 71216 EST. PATIENT, LEVEL III Diagnosis: Biceps tendonitis on right[ICD9: 726.12] Beti Jordan MD, [facility] CPT-4: 25611 11/03/2014 ([id number]) 95563 EST. PATIENT, LEVEL III Diagnosis: ALLERGIC RHINITIS[ICD9: 477.9] Diagnosis: ACUTE SINUSITIS[ICD9: 461.9] Luisa Jordan MD, [facility] CPT-4: 95594 06/02/2014 ([id number]) 44606 EST. PATIENT, LEVEL IV Diagnosis: Rash[ICD9: 782.1] Diagnosis: Muscle ache[ICD9: 729.1] Diagnosis: Hemorrhoids[ICD9: 455.6] Diagnosis: DIABETES TYPE II[ICD9: 250.00] Beti Jordan MD, [facility] CPT- 4: 60916 05/16/2014 ([id number]) 12688 EST. PATIENT, LEVEL III Diagnosis: Hepatitis C antibody test positive[ICD9: 795.79] Beti Jordan MD, [facility] CPT-4: 98884 01/18/2013 ([id number]) 99998 EST. PATIENT, LEVEL IV Diagnosis: DIABETES TYPE II[SNOMED: 937225735] Diagnosis: Blurred vision[ICD9: 368.8] Beti Jordan MD, [facility] CPT- 4: 04285 09/28/2012 90058 EST. PATIENT, LEVEL IV Diagnosis: DIABETES TYPE II[SNOMED: 119738860] Diagnosis: DEPRESSIVE DISORDER NEC[ICD9: 311] Diagnosis: Obesity[ICD9: 278.00] Luisa Jordan MD, [facility] CPT-4: 25108 08/25/2012 [id number] EST. PATIENT, LEVEL III Diagnosis: DIABETES TYPE II[SNOMED: 562700584] Diagnosis: Depression[ICD9: 311] Beti Jordan MD, [facility] CPT-4: 85712 09/03/2011 Plan of Care Planned Activity Notes [...] Dr Meeks 01/16/2017 Appointment: [facility]th [facility]el[facility] [place] [facility] 01/16/2017 Patient Education: Patient Medication Summary Completed [...] functioning. Tick bite- joint pains-check tick panel [id number] for nystatin/triamcinolone cream-call if rash does not [...] 10 days. 11/03/2014 [facility]ment[facility] [place] [facility] 11/03/2014 Patient Education: Patient Medication Summary Completed [...] sent electronically. 05/16/2014 Appointment: Beti Jordan WPtel: [address] [facility] Follow up 05/16/2014 Patient Education: Patient Medication Summary Completed 05/16/2014 Visit Plan: Referral - to GI specialist due to hepatitis c positive status and abnormal liver enzymes. 01/18/2013 Appointment: Beti Jordan WPtel: [address] [facility] Follow up 01/18/2013 Patient Education: Patient Medication [...] start changing. 09/28/2012 Appointment: Beti Jordan WPtel: [phone] [facility] Other 09/28/2012 Patient Education: Patient Medication Summary [...] regular exercise 08/25/2012 Appointment: Luisa Barth WPtel: [address] [place] [address] Other 08/25/2012 Patient Education: Patient Medication Summary [...] controlled-refill lexapro 09/03/2011 Appointment: Luisa Barth WPtel: [place] [place] [address] Other 09/03/2011 Patient Education: Patient Medication Summary [...] renal functioning. Tick bite-joint pains-check tick panel [id number] for nystatin/triamcinolone cream-call if rash does not [...]
== END 2018-01-29 10:16 | disposition home or self-care (01) ==
LOC: ENDO 07:23
PROVIDERS: ATTEND Surgery
DX: K20.9 Esophagitis, unspecified (principal); K22.2 Esophageal obstruction; K25.9 Gastric ulcer, unspecified as acute or chronic, without hemorrhage or perforation

== ENCOUNTER → 2018-04-06 | Outpatient (CLI) | payer OTHER ==
[~2018-04-06] MED LIST changes: +PANT40TA2 PO
--- NOTE | 2018-04-06 14:16 | Diagnostic Imaging Report ---
INDICATION: Right breast architectural distortion. Patient presents for a six-month followup. COMPARISON: 09/25/2017. TECHNIQUE: Unilateral right 2D and 3D diagnostic mammography was performed with CAD. FINDINGS: The right breast is heterogeneously dense, limiting the sensitivity of mammography. An area of architectural distortion in the upper inner right breast appears stable and may be owing to prior biopsy. No mass is seen. No malignant appearing microcalcifications are seen. The right axilla is unremarkable. IMPRESSION: Stable right mammogram. The patient should return in 6 months for additional followup. ACR BI-RADS Category 3: Probably benign findings. Result letter will be mailed to the patient. Note: At least 10% of breast cancer is not imaged by mammography. Dictated by: Dictated on workstation # [id number]
== END ==
LOC: RAD 13:31
PROVIDERS: ATTEND Nurse Practitioner
DX: R92.8 Other abnormal and inconclusive findings on diagnostic imaging of breast (principal)

== ENCOUNTER → 2019-07-19 | Outpatient (CLI) | payer OTHER ==
[~2019-07-19] MED LIST changes: -OXYC-197 PO; +OXYC1TAB87 PO
--- NOTE | 2019-07-20 13:24 | Diagnostic Imaging Report ---
EXAMINATION: Digital mammogram bilateral screening. The current study was also evaluated with a Computer Aided Detection (CAD) system. 3-D tomosynthesis was also performed and reviewed. INDICATION: Screening. This study was compared to the prior exams of 04/06/2018, 09/25/2017, and 05/31/2016. At this time, there are no current complaints. FINDINGS: The previous exam of 04/06/2018 noted an area of architectural distortion in the upper-inner quadrant of the right breast. A six-month follow-up mammogram was recommended but to my knowledge that exam was not performed. On this exam, the area of architectural distortion is again evident and does not appear to have changed significantly. This may be a sequela of patient's prior biopsy. There are scattered fibroglandular densities in both breasts which could obscure a lesion. Overall, there has been no significant change since the prior exam. There is no primary or secondary sign of malignancy noted. IMPRESSION: There is no evidence for malignancy. ACR BI-RADS Category 1: Negative. Result letter will be mailed to the patient. Note: At least 10% of breast cancer is not imaged by mammography. Dictated by: Dictated on workstation # [id number]
== END ==
LOC: RAD 08:52
PROVIDERS: ATTEND Obstetrics & Gynecology
DX: Z12.31 Encounter for screening mammogram for malignant neoplasm of breast (principal)
CPT/HCPCS: 77067

== ENCOUNTER → 2020-08-15 | Outpatient (CLI) | payer OTHER ==
--- NOTE | 2020-08-15 13:05 | Diagnostic Imaging Report ---
INDICATION: COUGH CONGESTION COVID COMPARISON: 05/04/2017. FINDINGS: Frontal and lateral views of the chest demonstrate normal heart size and pulmonary vascularity. The lungs are clear. There are no signs of infiltrate, pleural effusions or pneumothoraces. The visualized osseous structures show no acute abnormalities. IMPRESSION: 1. No acute process. No signs of infiltrates, effusions or pneumothoraces. Dictated by: Dictated on workstation # [id number]
== END ==
LOC: RAD 11:52
PROVIDERS: ATTEND Nurse Practitioner Family
DX: U07.1 COVID-19 (principal)
CPT/HCPCS: 71046

== ENCOUNTER → 2020-08-24 | Outpatient (CLI) | payer OTHER ==
--- NOTE | 2020-08-24 15:53 | Diagnostic Imaging Report ---
INDICATION: Routine screening. COMPARISON: 07/19/2019 and 09/25/2017. TECHNIQUE: 2D and 3D bilateral screening mammography was performed with CAD. FINDINGS: Scattered fibroglandular densities are identified bilaterally. The overall parenchymal pattern appears to be stable. The area of architectural distortion in the medial right breast is stable. No new mass or malignant appearing microcalcifications are seen. Benign calcifications are noted bilaterally. The axillae are unremarkable. IMPRESSION: No mammographic features suspicious for malignancy are identified. ACR BI-RADS Category 2: Benign findings. Result letter will be mailed to the patient. Note: At least 10% of breast cancer is not imaged by mammography. Dictated by: Dictated on workstation # [id number]
== END ==
LOC: RAD 10:00
PROVIDERS: ATTEND Obstetrics & Gynecology
DX: Z12.31 Encounter for screening mammogram for malignant neoplasm of breast (principal)
CPT/HCPCS: 77063; 77067

== ENCOUNTER → 2021-11-01 | Outpatient (CLI) | payer OTHER ==
--- NOTE | 2021-11-01 10:36 | Diagnostic Imaging Report ---
INDICATION: Routine screening. COMPARISON is made with prior mammogram from 08/24/2020 and 07/19/2019. 2-D and 3-D bilateral screening mammography was performed with CAD. Both breasts are heterogeneously dense, limiting the sensitivity of mammography. There area of architectural distortion in the medial right breast appears stable. The overall parenchymal pattern appears to be stable. No mass or malignant-appearing microcalcifications are seen. Axillae are unremarkable. IMPRESSION: BI-RADS Category 1 No mammographic features suspicious for malignancy are identified. ACR BI-RADS Category 1: Negative. Result letter will be mailed to the patient. Note: At least 10% of breast cancer is not imaged by mammography. Dictated by: Dictated on workstation # [id number]
== END ==
LOC: RAD 08:00
PROVIDERS: ATTEND Obstetrics & Gynecology
DX: Z12.31 Encounter for screening mammogram for malignant neoplasm of breast (principal)
CPT/HCPCS: 77063; 77067

== ENCOUNTER → 2022-03-01 | Outpatient (CLI) | payer OTHER | LOC: LAB 14:25 | PROVIDERS: ATTEND Otolaryngology Otolaryngology/Facial Plastic Surgery | DX: R10.9 Unspecified abdominal pain (principal) | CPT/HCPCS: 36415; 85652 ==

== ENCOUNTER → 2022-03-13 | Outpatient (CLI) | payer OTHER ==
--- NOTE | 2022-03-13 08:35 | Diagnostic Imaging Report ---
PROCEDURE: CT sinuses without contrast TECHNIQUE: Multiple contiguous axial images were obtained through the sinuses without the use of intravenous contrast. Coronal and sagittal reformations were then performed. Auto Exposure Controls were utilized during the CT exam to meet ALARA standards for radiation dose reduction. INDICATION: Chronic left-sided facial pain COMPARISON: None available. FINDINGS: The frontal sinuses are clear. The frontoethmoidal recesses are clear. Ethmoid air cells are clear. The sphenoid sinuses are clear. The maxillary sinuses are clear. The mastoid air cells and middle ear cavities are clear. Minimal rightward deviation of the nasal septum. The bilateral ostiomeatal complexes are patent. No significant sarah beth bullosa. A 0.9 x 0.9 cm ovoid lucency with central sclerosis is identified involving the lateral aspect of the anterior wall of the left maxillary sinus, series 4, image 12, series 601, image 26, and series 602 image 58. No acute facial fracture. No temporomandibular joint dislocation. The orbits are unremarkable. Visualized portions of parapharyngeal fat is symmetric. Visualized portions of the muscles of mastication are unremarkable. Fossa of Rosenmuller is symmetric. No intracranial hydrocephalus within the naugh-pa-ypze. IMPRESSION: The paranasal sinuses are clear. 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 Osteoblastoma or ossifying fibroma are additional considerations. Dictated by: Dictated on workstation # [id number]
== END ==
LOC: RAD 07:45
PROVIDERS: ATTEND Otolaryngology Otolaryngology/Facial Plastic Surgery
DX: J34.89 Other specified disorders of nose and nasal sinuses (principal)
CPT/HCPCS: 70486

== ENCOUNTER → 2022-11-19 | Outpatient (RCR) | payer OTHER | END | disposition home or self-care (01) | PROVIDERS: ATTEND Nurse Practitioner Family | DX: M54.50 Low back pain, unspecified (principal); M79.605 Pain in left leg ==

== ENCOUNTER → 2022-12-12 | Outpatient (CLI) | payer OTHER ==
--- NOTE | 2022-12-12 17:50 | Diagnostic Imaging Report ---
HISTORY: Right knee pain. TECHNIQUE: 4 views of the right knee. COMPARISON: None. FINDINGS: No acute fracture or dislocation is seen in the right knee. There are mild degenerative changes in all three compartments. There is a small right knee joint effusion. Alignment is normal. IMPRESSION: Mild degenerative changes in the right knee with a small joint effusion. Dictated by: Dictated on workstation # [id number]
== END ==
LOC: ORTHO 12:40
PROVIDERS: ATTEND Orthopaedic Surgery
DX: M17.11 Unilateral primary osteoarthritis, right knee (principal)
CPT/HCPCS: 20610; 73564; G0463

== ENCOUNTER → 2022-12-17 | Outpatient (RCR) | payer OTHER | END | disposition home or self-care (01) | PROVIDERS: ATTEND Nurse Practitioner Family | DX: M54.50 Low back pain, unspecified (principal); M79.605 Pain in left leg ==

== ENCOUNTER 2022-12-19 16:07 | Outpatient (RCR) | payer OTHER | END 2023-01-17 | disposition home or self-care (01) | PROVIDERS: ATTEND Nurse Practitioner Family | DX: M54.50 Low back pain, unspecified (principal); M79.605 Pain in left leg ==

== ENCOUNTER → 2022-12-24 | Outpatient (CLI) | payer OTHER | LOC: ORTHO 08:29 | PROVIDERS: ATTEND Orthopaedic Surgery | DX: S83.241A Other tear of medial meniscus, current injury, right knee, initial encounter (principal); N95.2 Postmenopausal atrophic vaginitis; X58.XXXA Exposure to other specified factors, initial encounter | CPT/HCPCS: 99213 ==

== ENCOUNTER → 2022-12-30 | Outpatient (CLI) | payer OTHER ==
--- NOTE | 2022-12-30 15:38 | Diagnostic Imaging Report ---
EXAMINATION: Magnetic resonance imaging of the right knee without intravenous contrast DATE: December 30, 2022. COMPARISON: Right knee radiographs December 12, 2022. INDICATION: 57-year-old female, right knee pain. TECHNIQUE: Multiplanar, multisequence noncontrast enhanced MR imaging was accomplished. FINDINGS: MENISCI: There is a tear involving the posterior root attachment of the medial meniscus. There is associated 3 mm medial meniscal extrusion. The lateral meniscus is intact. LIGAMENTS AND TENDONS: The anterior and posterior cruciate ligaments are intact. The medial collateral ligament is intact. The iliotibial band, mid third lateral capsular ligament, fibular collateral ligament, biceps femoris tendon, and conjoined tendon are intact. The quadriceps tendon and patella ligament are intact. JOINT: There are areas of full-thickness cartilage loss involving the median patellar ridge and medial aspect of the lateral patellar facet involving approximately half of the lateral patellar facet cartilage. There is a 4 x 4 mm near full-thickness cartilage defect involving the mid weightbearing portion of the lateral femoral condyle. There is subjacent irregularity of the cartilage of the lateral tibial plateau with cartilage flap extending along the bone cartilage interface over a 3 mm anterior to posterior extent, best demonstrated on sagittal PD fat saturation sequence image 18. There is a full-thickness cartilage loss involving the inferior aspect of the femoral trochlea. There is no knee joint effusion. There is no identified intra-articular body or prominent synovitis. BONE: There is no acute fracture, bone contusion, or evidence of osteonecrosis. There is mild degenerative related edema associated with the patellofemoral compartment. BURSAE AND SOFT TISSUES: There is no Voss's cyst. IMPRESSION: 1. Radially oriented tear involving the posterior root attachment of the medial meniscus with 3 mm medial meniscal extrusion. Intact lateral meniscus. 2. Intact anterior and posterior cruciate ligaments. Additional ligaments and tendons are intact. 3. Moderate to severe patellofemoral and mild lateral compartment osteoarthritis without knee joint effusion. 4. No acute fracture, bone contusion, or evidence of osteonecrosis. Dictated by: Dictated on workstation # [id number]
== END ==
LOC: RAD 13:33
PROVIDERS: ATTEND Orthopaedic Surgery
DX: S83.241A Other tear of medial meniscus, current injury, right knee, initial encounter (principal); X58.XXXA Exposure to other specified factors, initial encounter
CPT/HCPCS: 73721

== ENCOUNTER → 2023-01-09 | Outpatient (CLI) | payer OTHER | LOC: ORTHO 08:35 | PROVIDERS: ATTEND Orthopaedic Surgery | DX: M17.11 Unilateral primary osteoarthritis, right knee (principal) | CPT/HCPCS: 99213 ==

== ENCOUNTER → 2023-01-15 | Outpatient (CLI) | payer OTHER ==
--- NOTE | 2023-01-15 11:50 | Diagnostic Imaging Report ---
Indication: Routine screening. Comparison is made with prior mammogram 11/01/2021 and 08/24/2020. 2-D and 3-D bilateral screening mammography was performed with CAD. CAD is utilized. The current study was also evaluated with a Computer Aided Detection (CAD) system. Scattered fibroglandular densities are identified bilaterally. Architectural distortion medial right breast appear stable. No new mass or malignant-appearing microcalcifications are seen. Axillae are unremarkable. IMPRESSION: BI-RADS Category 2 No mammographic features suspicious for malignancy are identified. ACR BI-RADS Category 2: Benign findings. Result letter will be mailed to the patient. Note: At least 10% of breast cancer is not imaged by mammography. Dictated by: Dictated on workstation # [id number]
== END ==
LOC: RAD 11:00
PROVIDERS: ATTEND Nurse Practitioner Women's Health
DX: Z12.31 Encounter for screening mammogram for malignant neoplasm of breast (principal)
CPT/HCPCS: 77063; 77067

== ENCOUNTER → 2023-01-21 | Outpatient (CLI) | payer OTHER | LOC: ORTHO 15:42 | PROVIDERS: ATTEND Orthopaedic Surgery | DX: M17.11 Unilateral primary osteoarthritis, right knee (principal) | CPT/HCPCS: 20610 ==

== ENCOUNTER → 2023-01-22 | Outpatient (CLI) | payer OTHER ==
--- NOTE | 2023-01-22 12:05 | Diagnostic Imaging Report ---
INDICATION: Left knee pain AP, oblique, and lateral and sunrise views of left knee are obtained. No fracture or acute bony abnormality is seen. There is mild to moderate medial joint space narrowing. There is preservation of the lateral and patellofemoral compartment. There is a minimal joint effusion. IMPRESSION: Mild medial joint space narrowing and minimal knee joint effusion. No acute fracture. Dictated by: Dictated on workstation # [id number]
== END ==
LOC: RAD 11:32
PROVIDERS: ATTEND Orthopaedic Surgery
DX: M17.12 Unilateral primary osteoarthritis, left knee (principal)
CPT/HCPCS: 73564

== ENCOUNTER → 2023-01-28 | Outpatient (CLI) | payer OTHER | LOC: ORTHO 15:01 | PROVIDERS: ATTEND Orthopaedic Surgery | DX: M17.12 Unilateral primary osteoarthritis, left knee (principal) | CPT/HCPCS: 20610 ==

== ENCOUNTER → 2023-02-24 | Outpatient (CLI) | payer OTHER ==
[2023-02-24 07:39] LABS: BASOPHILS % (AUTO) 1 % (0-10); EOSINOPHILS # (AUTO) 0.1 10^3/uL (0.0-0.3); EOSINOPHILS % (AUTO) 2 % (0-10); HEMATOCRIT 42 % (35-52); HEMOGLOBIN 13.8 g/dL (11.5-16.0); LYMPHOCYTES # (AUTO) 2.2 10^3/uL (1.0-4.0); LYMPHOCYTES % (AUTO) 40 % (12-44); MEAN CORPUSCULAR HEMOGLOBIN 28 pg (25-34); MEAN CORPUSCULAR HGB CONC 33 g/dL (32-36); MEAN CORPUSCULAR VOLUME 86 fL (80-99); MEAN PLATELET VOLUME 10.1 fL (9.0-12.2); MONOCYTES # (AUTO) 0.4 10^3/uL (0.0-1.0); MONOCYTES % (AUTO) 8 % (0-12); NEUTROPHILS # (AUTO) 2.6 10^3/uL (1.8-7.8); NEUTROPHILS % (AUTO) 49 % (42-75); PLATELET COUNT 217 10^3/uL (130-400); WHITE BLOOD COUNT 5.4 10^3/uL (4.3-11.0)
[2023-02-24 07:42] LABS: ALBUMIN 4.2 GM/DL (3.2-4.5)
[2023-02-24 07:43] LABS: CALCIUM 9.2 MG/DL (8.5-10.1)
[2023-02-24 07:45] LABS: TOTAL PROTEIN 7.4 GM/DL (6.4-8.2)
[2023-02-24 07:46] LABS: BILIRUBIN,TOTAL 0.6 MG/DL (0.1-1.0)
[2023-02-24 07:48] LABS: CREATININE SERUM 0.85 MG/DL (0.60-1.30)
== END ==
LOC: LAB 07:15
PROVIDERS: ATTEND Nurse Practitioner Family
DX: Z00.00 Encounter for general adult medical examination without abnormal findings (principal); E11.9 Type 2 diabetes mellitus without complications; E55.9 Vitamin D deficiency, unspecified
CPT/HCPCS: 36415; 80053; 80061; 83036; 84443; 85025

== ENCOUNTER → 2023-04-17 | Outpatient (CLI) | payer OTHER ==
--- NOTE | 2023-04-17 15:08 | Diagnostic Imaging Report ---
INDICATION: Preop for knee replacement surgery. TIME OF EXAM: 11:23 a.m. COMPARISON: Correlation is made with prior chest from 08/15/2020. FINDINGS: The heart size is normal. The pulmonary vascularity is unremarkable. The lungs are clear. No infiltrate, effusion or pneumothorax is detected. IMPRESSION: No acute cardiopulmonary process is detected. Dictated by: Dictated on workstation # [id number]
== END ==
LOC: ORTHO 10:35
PROVIDERS: ATTEND Orthopaedic Surgery
DX: Z01.89 Encounter for other specified special examinations (principal)
CPT/HCPCS: 71046; G0463; 99213

== ENCOUNTER → 2023-04-25 | Outpatient (CLI) | payer OTHER ==
--- NOTE | 2023-04-25 12:10 | Diagnostic Imaging Report ---
Exam: CT pelvis and bilateral hips without contrast. Date: April 25, 2023. Indication: 57-year-old female, chronic right knee pain. Surgical planning. Comparison: MRI right knee December 30, 2022. Technique: Axial CT images of the pelvis and bilateral hips were obtained without contrast. Coronal and sagittal reformats were obtained and provided. Axial CT images at the level of the knees were also obtained for assistance with surgical planning and measurements. All CT scans use one or more of the following dose optimizing techniques: automated exposure control, MA and/or KvP adjustment based on a patient size and exam type, or iterative reconstruction. Findings: There is severe medial compartment joint space loss. There are small medial compartment osteophytes. There are small lateral compartment osteophytes. There is moderate to severe patellofemoral compartment joint space loss. There is a small to moderate sized knee joint effusion. There are ossifications near the intracondylar notch which may reflect intra-articular ossified bodies. These measure up to approximately 5 mm in size. There is no acute fracture. There is no aggressive bone lesion. There is no Voss's cyst. There is benign productive bone formation arising from the posterior aspect of the upper fibula extending medially. Impression: 1. Advanced predominantly patellofemoral and medial compartment osteoarthritis and mild lateral compartment osteoarthritis. Potential intra-articular ossified bodies near the intracondylar notch. Dictated by: Dictated on workstation # [id number]
== END ==
LOC: RAD 09:34
PROVIDERS: ATTEND Orthopaedic Surgery
DX: M17.11 Unilateral primary osteoarthritis, right knee (principal)
CPT/HCPCS: 73700

== ENCOUNTER 2023-05-07 08:34 | Outpatient (CLI) | payer OTHER ==
[~2023-05-07] VITALS: Ht 167.6 cm; Wt 94.9 kg
[2023-05-07] MEDS ORDERED: BUSP5TAB59 PO (09:21)
[2023-05-07] MEDS ORDERED: VITA-246 PO (09:21)
[2023-05-07] MEDS ORDERED: GLUC100016 PO (09:21)
[2023-05-07] MEDS ORDERED: CYAN250014 PO (09:21)
[2023-05-07] MEDS ORDERED: VILA40TA2 PO (09:21)
[2023-05-07] MEDS ORDERED: CETI10CA PO (09:21)
[2023-05-07] MEDS ORDERED: FLAX10004 PO (09:21)
[2023-05-07] MEDS ORDERED: OMEG100032 PO (09:21)
[2023-05-07] MEDS ORDERED: OMEP40CA6 PO (09:21)
[2023-05-07] MEDS ORDERED: EST30C VG (09:21)
[2023-05-07] MEDS ORDERED: MULT-1136 PO (09:22)
[2023-05-07 09:43] VITALS: BP 126/65
== END 2023-05-07 09:47 ==
LOC: PREOP 08:34
PROVIDERS: ATTEND Orthopaedic Surgery
DX: Z01.818 Encounter for other preprocedural examination (principal); M17.11 Unilateral primary osteoarthritis, right knee
CPT/HCPCS: 87081; 93005

== ENCOUNTER 2023-05-14 11:14 | Day surgery (SDC) | payer OTHER ==
[2023-05-14] VITALS (12 sets, daily range): BP systolic 96–139; BP diastolic 52–76
[~2023-05-14] VITALS: Ht 167.6 cm; Wt 94.9 kg
[~2023-05-14 11:14] MED LIST changes: +BUSP5TAB59 PO; +CETI10CA PO; +CYAN250014 PO; +EST30C VG; +FLAX10004 PO; +GLUC100016 PO; +MULT-1136 PO; +OMEG100032 PO; +OMEP40CA6 PO; +VILA40TA2 PO; +VITA-246 PO
[2023-05-14] MEDS ORDERED: ceFAZolin INJECTION 2,000 MG in NS (IVPB) 50 ML 50 ML IV ONE (11:45)
[2023-05-14] MEDS: LACTATED RINGERS 1,000 ML IV PRN ×2 (12:05→14:53)
[2023-05-14] MEDS ORDERED: MIDAZOLAM 2 MG/2 ML (VERSED) VIAL ONE (12:22)
[2023-05-14] MEDS ORDERED: PROPOFOL INJECTION 50 ML IV ONE ×3 (12:22→14:33)
[2023-05-14] MEDS ORDERED: BUPIVACAINE 0.5% 30 ML VIAL ONE (12:22)
[2023-05-14] MEDS ORDERED: fentaNYL INJ 100 MCG/2 ML AMP ONE (12:22)
--- NOTE | 2023-05-14 12:56 | Progress Note-Pre Operative ---
Pre-Operative Progress Note Date of Available H&P: Apr 17, 2023 Date H&P Reviewed: May 14, 2023 Time H&P Reviewed: 12:45 History & Physical: H&P Reviewed, Patient Examed, No changes noted Pre-Operative Diagnosis: Right Knee Primary Osteoarthritis ROSEMARY ROSS MD May 14, 2023 12:56
[2023-05-14] MEDS ORDERED: TRANEXAMIC ACID 100 MG/ML 10 ML INJECTION ONE (13:09)
[2023-05-14] MEDS ORDERED: KETAMINE 50 MG/5 ML SYRINGE ONE (13:19)
[2023-05-14] MEDS ORDERED: GLYCOPYRROLATE 0.2 MG/ML (ROBINUL) 2 ML VIAL ONE (13:20)
[2023-05-14] MEDS ORDERED: ROPIVACAINE 5MG/ML 30ML VIAL ONE (13:22)
[2023-05-14] MEDS ORDERED: PHENYLEPHRINE 100 MCG/ML 10 ML (ANESTHESIA) SYR ONE (14:09)
--- NOTE | 2023-05-14 15:30 | Operative Report - Ortho ---
Operative Report Surgeon (s)/Die Maker Apprentice (s) Surgeon ROSEMARY ROSS MD Die Maker Apprentice n/a Pre-Operative Diagnosis Right Knee Primary Osteoarthritis Post-Operative Diagnosis same Operative Report Date of Procedure: May 14, 2023 Name of Procedure Performed: Robotic Assisted Right Total Knee Arthroplasty Description & Findings After obtaining informed consent and marking the patient in the preoperative holding area, the patient did receive IV antibiotics. Patient was taken to the operating room and anesthesia was induced. Surgical timeout was taken. The right lower extremity was prepped and draped in the usual sterile fashion. Incision was made and carried down to fascia. Arthrotomy was performed on the medial side of the patella. Patella was retracted laterally and knee was flexed. Found to have circumferential osteophtye around the distal femur as well as exposed bone in the medial compartment. ACL and anterior horns of the menisci were removed. 3.2 mm pins were placed in the medial femoral condyle for the femoral array and checkpoint was placed next to the pins. 3.2 mm pins were placed in the proximal tibia and checkpoint was placed there as well. Arrays were placed and tightened into position. The femur and tibia were then registered. Osteophytes were removed. The knee was then tensioned with varus and valgus stress in extension and flexion. Measurements were captured and adjustments were made to the preoperative plan to balance the flexion and extension gaps. Robotic arm was brought into position and all femoral cuts as well as the tibial cut were performed. Bone blocks were removed. Lamina principal web developer was placed and the remainder of the mensici as well as posterior osteophytes were removed. Arrays and pins were removed. Box cut was performed and lug holes were drilled. The knee was trialed with a size 3 femur and a size 2 tibia with a 9 mm poly trial. It was found to come out to full extension and flexed beyond 120 degrees. It was stable to varus and valgus stress throughout its range of motion. This was accepted. Knee was brought out into extension and the patella was measured at less than 20 mm of thickness. Osteophytes were removed from around the perimeter of the patella. Patella tracked well through the trochlear groove of the femur. Trial implants were removed. Tibial tray was pinned and punched. The cut bone surfaces were lavaged with pulsatile normal saline. Implants were opened and assembled on the back table. A size 2 press fit tibial component was impacted into place. A size 3 press fit femoral component was impacted into place. Tibial tray was lavaged with saline. A 9 mm thick polyethylene component was locked into placed and the locking mechanism was checked. Knee was brought into extension. Irrisept soak was performed and then, the knee was irrigated with normal saline. The knee was once again trialed; found to come to full extension, flexed beyond 120 degrees, and was stable to varus and valgus stress. Tourniquet was dropped and electrocautery was used for hemostasis. Fascial layer was closed with #2 Stratafix. The subcutaneous layer was closed with 2-0 Vicryl. The skin was closed with 3-0 V-loc. Wound was dressed with steri-strips, xeroform, 4x4s, ABD, webril, and SAYDA wrap. Patient tolerated the procedure well and was stable to the recovery room. Anesthesia Type Spinal Estimated Blood Loss 150 mL Specimen(s) collected/removed None ROSEMARY ROSS MD May 14, 2023 15:30
[2023-05-14] MEDS ORDERED: RT-ALBUTEROL SULF 2.5 MG/3 ML PRE-MIX VIAL ONE (15:37)
[2023-05-14] MEDS ORDERED: ONDANSETRON 4 MG/2 ML (SDV) Z0FRAN IVP PRN (15:45)
[2023-05-14] MEDS ORDERED: RT-ALBUTEROL SULF 2.5 MG/3 ML PRE-MIX VIAL INH ONE (15:45)
[2023-05-14] MEDS ORDERED: HYDROmorphone 2 MG/ML VIAL (DILAUDID) IV ONE (15:45)
--- NOTE | 2023-05-14 16:12 | Diagnostic Imaging Report ---
EXAMINATION: Right knee pain. FINDINGS: AP and lateral views of the right knee show postop changes from joint arthroplasty. Alignment is normal. There is no evidence of loosening or periprosthetic fracture. IMPRESSION: Good alignment in the right knee following joint arthroplasty. Dictated by: Dictated on workstation # [id number]
[2023-05-14] MEDS: ASPIRIN enteric coated 81MG TABLET PO SCH (17:29)
[2023-05-14] MEDS: NS IV 1000 ML 1,000 ML IV SCH (17:29)
[2023-05-14] MEDS: morphine INJ 4 MG/ML 1 ML (VIAL/SYRINGE) IVP PRN ×3 (18:49→23:59)
[2023-05-14] MEDS: ONDANSETRON 4 MG/2 ML (SDV) Z0FRAN IV PRN ×2 (19:48→19:52)
[2023-05-14] MEDS: CELECOXIB 100 MG CAPSULE PO SCH (20:20)
[2023-05-14] MEDS: ceFAZolin INJECTION 2,000 MG in NS (IVPB) 50 ML 50 ML IV SCH (20:20)
[2023-05-14] MEDS ORDERED: ceFAZolin INJECTION 2,000 MG in NS (IVPB) 50 ML 50 ML IV SCH (21:00)
[2023-05-15] MEDS: NS IV 1000 ML 1,000 ML IV SCH ×3 (01:31→21:37)
[2023-05-15] MEDS: morphine INJ 4 MG/ML 1 ML (VIAL/SYRINGE) IVP PRN ×2 (02:24→06:09)
[2023-05-15] MEDS: ONDANSETRON 4 MG/2 ML (SDV) Z0FRAN IV PRN ×2 (03:12→07:32)
[2023-05-15 04:00] VITALS: BP 136/60
[2023-05-15] MEDS: ceFAZolin INJECTION 2,000 MG in NS (IVPB) 50 ML 50 ML IV SCH (05:11)
[2023-05-15] MEDS: MULTIVIT W/MINERALS TAB (THERAGRAN M) PO SCH (06:09)
[2023-05-15 06:10] LABS: BASOPHILS % (AUTO) 0 % (0-10); EOSINOPHILS % (AUTO) 0 % (0-10); HEMATOCRIT 37 % (35-52); LYMPHOCYTES # (AUTO) 1.2 10^3/uL (1.0-4.0); LYMPHOCYTES % (AUTO) 11 % (12-44); MEAN CORPUSCULAR HEMOGLOBIN 28 pg (25-34); MEAN CORPUSCULAR HGB CONC 33 g/dL (32-36); MEAN CORPUSCULAR VOLUME 85 fL (80-99); MEAN PLATELET VOLUME 10.7 fL (9.0-12.2); MONOCYTES # (AUTO) 0.9 10^3/uL (0.0-1.0); MONOCYTES % (AUTO) 9 % (0-12); NEUTROPHILS # (AUTO) 8.5 10^3/uL (1.8-7.8); NEUTROPHILS % (AUTO) 80 % (42-75); PLATELET COUNT 200 10^3/uL (130-400); WHITE BLOOD COUNT 10.6 10^3/uL (4.3-11.0)
[2023-05-15 06:22] LABS: ALBUMIN 3.6 GM/DL (3.2-4.5); POTASSIUM 3.7 MMOL/L (3.6-5.0)
[2023-05-15 06:23] LABS: CALCIUM 8.8 MG/DL (8.5-10.1)
[2023-05-15 06:25] LABS: TOTAL PROTEIN 6.1 GM/DL (6.4-8.2)
[2023-05-15 06:27] LABS: BILIRUBIN,TOTAL 0.6 MG/DL (0.1-1.0)
[2023-05-15 06:28] LABS: CREATININE SERUM 0.74 MG/DL (0.60-1.30)
[2023-05-15] MEDS: CELECOXIB 100 MG CAPSULE PO SCH ×2 (08:03→20:10)
[2023-05-15] MEDS: ASPIRIN enteric coated 81MG TABLET PO SCH ×2 (08:03→18:06)
--- NOTE | 2023-05-15 08:04 | Physical Therapy Evaluation ---
PT Evaluation-General Medical Diagnosis Admission Date May 14, 2023 Medical Diagnosis: right knee OA Onset Date: May 14, 2023 Therapy Diagnosis Therapy Diagnosis: impaired mobility Height/Weight Height (Feet): 5 Height (Inches): 6.00 Weight (Pounds): 190 Weight (Ounces): 0.0 Precautions Precautions/Isolations: Fall Prevention, Standard Precautions Weight Bear Status Right Lower Extremity: Right Weight Bearing/Tolerated Left Lower Extremity: Left Full Weight Bearing Referral Physician: Andreia Reason for Referral: Evaluation/Treatment Medical History Current History s/p elective right TKR Reviewed History: Yes Social History Home: Single Level Current Living Status: Spouse PT Steps Into Home: 1 Prior Prior Level of Function SCALE: Activities may be completed with or without assistive devices. 5-Wvvkatbkzs-lvpsdks completes the activity by him/herself with no assistance from a helper. 5-Set-up or Clean-up Assistance-helper sets up or cleans up; patient completes activity. [place] assists only prior to or following the activity. 4-Supervision or Touching Assistance-helper provides verbal cues and/or touching/steadying and/or contact guard assistance as patient completes activity. Assistance may be provided throughout the activity or intermittently. 3-Partial/Moderate Assistance-helper does LESS THAN HALF the effort. [place] lifts, holds or supports trunk or limbs, but provides less than half the effort. 2-Substantial/Maximal Assistance-helper does MORE THAN HALF the effort. [place] lifts or holds trunk or limbs and provides more than half the effort. 6-Oiiekpryl-assunf does ALL the effort. Patient does none of the effort to complete the activity. Or, the assistance of 2 or more helpers is required for the patient to complete the activity. If activity was not attempted, code reason: 7-Patient Refused. 9-Not Applicable-not attempted and the patient did not perform the activity before the current illness, exacerbation or injury. 10-Not Attempted due to Environmental Limitations-(lack of equipment, weather restraints, etc.). 88-Not Attempted due to Medical Conditions or Safety Concerns. Bed Mobility: 6 Transfers (B,C,W/C): 6 Gait: 6 Stairs: 6 Indoor Mobility (Ambulation): Independent Stairs: Independent Prior Devices Use: None PT Evaluation-Current Subjective Patient agrees to PT. Pain Numeric Pain Scale: 8 Location: Right Location Body Site: Knee Pain Description: Acute Objective Patient Orientation: Normal For Age ROM/Strength ROM Lower Extremities left LE WFL/right knee flexion 70 degrees/extension 10 degrees Strength Lower Extremities left LE 5/5; right LE 3+/5 grossly (no formal testing due to pain) Integumentary/Posture Bowel Incontinence: No Bladder Incontinence: No Posture WFL Neuromuscular (Tone, Coordination, Reflexes) grossly intact Sensory Vision: Functional Hearing: Functional Transfers Lying to Sitting/Side of Bed(Q: 6 Sit to Stand (QC): 6 Chair/Zfg-mp-Cyats Xfer(QC): 6 Toilet Transfer (QC): 6 Gait Mode of Locomotion: Walk Anticipated Mode of Locomotion: Walk Walk 10 feet (QC): 5 Walk 50 ft with 2 Turns(QC): 5 Walk 150 ft (QC): 5 Distance: 150' Gait Assistive Device: FWW Comments/Gait Description slow, antalgic step to Balance Sitting Static: Normal Sitting Dynamic: Normal Standing Static: Normal Standing Dynamic: Normal Assessment/Needs Patient will benefit from skilled PT to address functional strength and mobility to improve current LOF to safely return to home at maximum LOF. Rehab Potential: Good PT Factory Helper Goals Mcfp Goals PT Mcfp Goals Time Frame: May 24, 2023 Roll Left & Right (QC): 6 Sit to Lying (QC): 6 Lying-Sitting on Side/Bed(QC): 6 Sit to Stand (QC): 6 Chair/Ofn-cj-Xdvrg Xfer(QC): 6 Toilet Transfer (QC): 6 Walk 10 feet (QC): 6 Walk 50ft with 2 Turns (QC): 6 Walk 150 ft (QC): 6 PT Plan Treatment/Plan Treatment Plan: Continue Plan of Care Treatment Plan: Education, Functional Activity Jahaira, Functional Strength, Gait, Safety, Therapeutic Exercise, Transfers Treatment Duration: May 24, 2023 Frequency: 11 times per week Estimated Hrs Per Day: .5 hour per day Patient and/or Family Agrees t: Yes Time Time In: 730 Time Out: 755 DATE: May 15, 2023 Total Billed Treatment Time: 25 Total Billed Treatment 1 visit EVModC 13 min GT 12 min NICCI VALDEZ PT May 15, 2023 08:04
[2023-05-15] MEDS ORDERED: busPIRone 5 MG TABLET PO SCH (08:30)
--- NOTE | 2023-05-15 08:30 | Progress Note - Ortho ---
Progress Note Subjective Date of Exam 05/15/23 Chief Complaint POD #1 R TKA HPI/Events since last exam some issues with nausea/indigestion, difficulty with pain control last PM Review of Systems - Allergies: Coded Allergies: amoxicillin (Verified Allergy, Unknown, HIVES/SWELLING, 05/07/23) Home Meds Reported Medications Multivitamin (Multivitamin) 1 Each Tablet, 1 EACH PO DAILY, TAB 05/07/23 Glucosamine Sulfate 2Kcl (Glucosamine) 1,000 Mg Tablet, 1000 MG PO UD, TAB 05/07/23 Estrogens Conjugated (Premarin) 0.625 Mg/Gram Cr, 30 GM VG HS, EA 05/07/23 Omeprazole (Omeprazole) Unknown Strength Capsule.dr, PO UD, CAP 05/07/23 Flaxseed Oil (Flaxseed Oil) 1,000 Mg Capsule, 1000 MG PO UD, CAP 05/07/23 [place]-3/Dha/Epa/Fish Oil (Fish Oil 1,000 mg Softgel) Unknown Strength Capsule, PO, CAP 05/07/23 Buspirone HCl (Buspirone HCl) 5 Mg Tablet, 5 MG PO UD, TAB 05/07/23 Cyanocobalamin (Vitamin B-12) (Vitamin B12) Unknown Strength Tab.chew, PO, TAB 05/07/23 Vitamin D3/Vitamin K2 (Mk4) (K2 Plus D3 Tablet) 1,000 Unit-100 Mcg Tablet, 1 EACH PO DAILY, TAB 05/07/23 Cetirizine HCl (Zyrtec) 10 Mg Capsule, 10 MG PO DAILY, CAP 05/07/23 Vilazodone HCl (Vilazodone HCl) 40 Mg Tablet, 40 MG PO DAILY, TAB 05/07/23 Objective Exam R Knee: Dressing C/D/I, +DF of ankle, no s/s of DVT Vital Signs Vital Signs Date Time Temp Pulse Resp B/P (MAP) Pulse Ox O2 Delivery O2 Flow Rate FiO2 05/15/23 04:00 36.4 69 18 136/60 (85) 95 Room Air 05/14/23 23:27 36.4 71 18 139/63 (88) 95 Room Air 05/14/23 20:41 37.5 70 16 127/60 (82) 95 Room Air 05/14/23 20:00 Room Air 05/14/23 18:43 36.9 70 18 138/69 (92) 99 7/26/23 16:20 Room Air 05/14/23 16:20 35.9 62 18 96/57 (70) 98 05/14/23 16:20 97 Room Air 05/14/23 16:15 35.9 62 18 96/57 (70) 98 Room Air 05/14/23 16:10 36.1 15 98/56 (70) 97 Room Air 05/14/23 16:10 Room Air 05/14/23 16:00 18 101/67 (78) 99 Room Air 05/14/23 15:55 Room Air 05/14/23 15:50 16 96/52 (67) 100 Room Air 05/14/23 15:40 Room Air 05/14/23 15:40 12 100/76 (84) 100 Room Air 05/14/23 15:30 14 99/65 (76) 97 Room Air 05/14/23 15:25 36.6 16 96/61 (73) 97 Room Air 05/14/23 15:25 Room Air 05/14/23 11:18 36.6 61 20 122/68 (86) 94 Room Air I & O 05/15/23 07:00 Intake Total 1750 ml Output Total 710 ml Balance 1040 ml Lab Results Laboratory Tests 05/15/23 05:37: White Blood Count 10.6, Red Blood Count 4.33, Hemoglobin 12.0, Hematocrit 37, Mean Corpuscular Volume 85, Mean Corpuscular Hemoglobin 28, Mean Corpuscular Hemoglobin Concent 33, Red Cell Distribution Width 12.8, Platelet Count 200, Mean Platelet Volume 10.7, Immature Granulocyte % (Auto) 0, Neutrophils (%) (Auto) 80H, Lymphocytes (%) (Auto) 11L, Monocytes (%) (Auto) 9, Eosinophils (%) (Auto) 0, Basophils (%) (Auto) 0, Neutrophils # (Auto) 8.5H, Lymphocytes # (Auto) 1.2, Monocytes # (Auto) 0.9, Eosinophils # (Auto) 0.0, Basophils # (Auto) 0.0, Immature Granulocyte # (Auto) 0.0, Sodium Level 133L, Potassium Level 3.7, Chloride Level 100, Carbon Dioxide Level 23, Anion Gap 10, Blood Urea Nitrogen 13, Creatinine 0.74, Estimat Glomerular Filtration Rate 93, BUN/Creatinine Ratio 18, Glucose Level 169H, Calcium Level 8.8, Corrected Calcium 9.1, Total Bilirubi n 0.6, Aspartate Amino Transf (AST/SGOT) 20, Alanine Aminotransferase (ALT/SGPT) 20, Alkaline Phosphatase 40, Total Protein 6.1L, Albumin 3.6 Imaging 2 postop views of the right knee dated 05/14/23 were reviewed and demonstrated total knee arthroplasty with components in good position Assessment and Plan Assessment Right Knee Primary OA s/p TKA Problem List Right Knee Primary OA s/p TKA Plan PT/OT DVT Prophylaxis Home with Home Health Tomorrow Final Diagonsis Right Knee Primary OA s/p TKA Level of the visit: Level 3 (global) ROSEMARY ROSS MD May 15, 2023 08:30
[2023-05-15 08:52] VITALS: BP 125/85
[2023-05-15] MEDS ORDERED: VILAZODONE HCL 40 MG PO SCH (09:00)
--- NOTE | 2023-05-15 09:27 | Consultation ---
LILLIE SULLIVAN 05/15/23 0927: HPI History of Present Illness: HPI/Chief Complaint Edita Kim is a 57yo F with past medical history of GERD and depression who was admitted following a R TKA. In January she injured her knee causing her to see ortho. She reports she had ligamentous and meniscal injury but due to severity of osteoarthritis the option of knee replacement was discussed. She underwent R TKA yesterday, follow up xray showed good alignment of prosthesis. She is complaining of 4/10 pain at R knee. She had a rough night and did not sleep much due to her pain. She also notes some nausea. She has not had BM since admission. Able to ambulate to bathroom with walker to void urine. Ambulated halls with PT earlier this morning. She denies fevers, chills, chest pain, and shortness of breath. Source: patient Exam Limitations: no limitations Date Seen 05/15/23 Attending Physician Beti Jordan MD PCP Admitting Physician: Attending Physician: Lon Martinez MD Referring Physician Lon Martinez MD Date of Admission Home Medications & Allergies Home Medications Reviewed patient Home Medication Reconciliation performed by pharmacy medication reconciliations manufacturing maintenance technician and/or nursing. Patients Allergies have been reviewed. Allergies Allergies Coded Allergies amoxicillin (Verified Allergy, Unknown, HIVES/SWELLING, 05/07/23) Past Qbshirs-Lgyjua-Qatzez Hx Patient Social History Tobacco Use?: No Smoking Status: Former Smoker Substance use?: No Alcohol Use?: No Immunizations Up To Date Date of Influenza Vaccine: Jun 24, 2017 First/Initial COVID19 Vaccinat: 2020 Second COVID19 Vaccination Moises: 2020 Seasonal Allergies Seasonal Allergies: Yes Past Medical History Surgeries: Breast, Section Sleep Apnea Currently Using CPAP: Yes CORPORATE QUALITY ENGINEER History: Menopausal Sexually Transmitted Disease: No HIV/AIDS: No Gastroesophageal Reflux Fractures Anxiety, Depression Blood Disorders: No Family Medical History No Pertinent Family Hx Review of Systems Constitutional: No chills, No diaphoresis, No fever EENTM: No hearing loss, No vision loss Respiratory: No cough, No short of breath Cardiovascular: No chest pain, No palpitations Gastrointestinal: No abdominal pain; nausea; No vomiting Genitourinary: No dysuria, No hematuria Musculoskeletal: joint pain Skin: No change in color Psychiatric/Neurological: Denies Headache, Denies Pre-Existing Deficit, Denies Weakness Physical Exam Physical Exam Vital Signs Vital Signs - First Documented 05/14/23 11:18 Temp 36.6 Pulse 61 Resp 20 B/P (MAP) 122/68 (86) Pulse Ox 94 O2 Delivery Room Air Capillary Refill : Less Than 3 Seconds Height, Weight, BMI Height: 5'6.00" Weight: 190lbs. 0.0oz. [id number]; 33.78 BMI Method:Stated General Appearance: No Apparent Distress, WD/WN HEENT: PERRL/EOMI, Moist Mucous Membranes Neck: Supple; No JVD Respiratory: Lungs Clear, Normal Breath Sounds, No Accessory Muscle Use, No Respiratory Distress Cardiovascular: Regular Rate, Rhythm, Normal Peripheral Pulses Gastrointestinal: Non Tender, Soft Rectal: Deferred Extremity: Normal Capillary Refill, No Pedal Edema Neurologic/Psychiatric: Alert, Oriented x3, Normal Mood/Affect Skin: Normal Color, Warm/Dry Results Results/Procedures Labs Laboratory Tests 05/15/23 05:37 Patient resulted labs reviewed. Imaging: Reviewed Imaging Films, Reviewed Imaging Report Assessment/Plan Assessment and Plan Assess & Plan/Chief Complaint POD1 R Total Knee Arthroplasty R knee pain Follow up knee xray showed good alignment of R Knee Pain controlled this morning, had a lot of pain overnight Celecoxib scheduled, morphine and oxycodone prn PT/OT Monitor for signs of surgical site infection CBC did not reveal any evidence of anemia from blood loss Regular diet as tolerated Follow up with Dr Martinez as outpatient Plan is to DC with home health tomorrow Monitor for BM, may need bowel regimen Nausea Zofran 4mg q4hr prn Hyponatremia 133, received 1 L of LR perioperatively encourage PO intake GERD Major Depressive Disorder Home meds resumed Diet- regular DVT ppx- lovenox Code status- full KERI HUYNH DO 05/16/23 0415: Supervisory-Addendum Brief Verification & Attestation Participated in pt care: history, MDM, physical Personally performed: exam, history, MDM, supervision of care Care discussed with: Medical Student Procedures: n/a Results interpretation: Verified all documentation Verification and Attestation of Medical Student E/M Service A medical student performed and documented this service in my presence. I reviewed and verified all information documented by the medical student and made modifications to such information, when appropriate. I personally performed the physical exam and medical decision making. Keri Huynh, May 16, 2023,04:14 LILLIE SULLIVAN May 15, 2023 09:27 KERI HUYNH DO May 16, 2023 04:15
[2023-05-15] MEDS: PANTOPRAZOLE 20 MG TABLET (PROTONIX) PO SCH (09:30)
[2023-05-15] MEDS ORDERED: GLUC1CAP14 PO (10:32)
[2023-05-15] MEDS ORDERED: EST30C VG (10:32)
[2023-05-15] MEDS ORDERED: BUSP10TA95 PO (10:32)
[2023-05-15] MEDS ORDERED: CURCUMIN PO (10:34)
[2023-05-15] MEDS ORDERED: busPIRone 10 MG TABLET PO PRN (11:00)
[2023-05-15] MEDS: SUCRALFATE 1 GM (CARAFATE) TAB PO SCH ×3 (11:38→20:10)
[2023-05-15 12:07] VITALS: BP 154/75
--- NOTE | 2023-05-15 12:53 | Occupational Therapy Eval ---
OT Evaluation-General/PLF Medical Diagnosis Admission Date Medical Diagnosis: right knee OA Onset Date: May 14, 2023 Therapy Diagnosis Therapy Diagnosis: weakness, pain w/ ADLS Height/Weight Height (Feet): 5 Height (Inches): 6.00 Weight (Pounds): 190 Weight (Ounces): 0.0 Precautions Precautions/Isolations: Fall Prevention, Standard Precautions Weight Bear Status Weight Bearing Restriction: Weight Bearing/Tolerated Location Restriction: R LE Referral Physician: Andreia Referral Reason: Self Care, Evaluation/Treatment Medical History Additional Medical History Elective RTKA Social History Home: Single Level Current Living Status: Spouse Steps Into Home: 1 ADL-Prior Level of Function SCALE: Activities may be completed with or without assistive devices. 1-Yenaowdjih-pzbjrsn completes the activity by him/herself with no assistance from a helper. 5-Set-up or Clean-up Assistance-helper sets up or cleans up; patient completes activity. [place] assists only prior to or following the activity. 4-Supervision or Touching Assistance-helper provides verbal cues and/or touching/steadying and/or contact guard assistance as patient completes act ivity. Assistance may be provided throughout the activity or intermittently. 3-Partial/Moderate Assistance-helper does LESS THAN HALF the effort. [place] lifts, holds or supports trunk or limbs, but provides less than half the effort. 2-Substantial/Maximal Assistance-helper does MORE THAN HALF the effort. [place] lifts or holds trunk or limbs and provides more than half the effort. 4-Vewtvxadm-fxbhsv does ALL the effort. Patient does none of the effort to complete the activity. Or, the assistance of 2 or more helpers is required for the patient to complete the activity. If activity was not attempted, code reason: 7-Patient Refused. 9-Not Applicable-not attempted and the patient did not perform the activity before the current illness, exacerbation or injury. 10-Not Attempted due to Environmental Limitations-(lack of equipment, weather restraints, etc.). 88-Not Attempted due to Medical Conditions or Safety Concerns. Self Care: Independent Functional Cognition: Independent Drive Self: Yes OT Current Status Subjective Up in recliner, agreeable to OT Pain Numeric Pain Scale: 7 Location: Right Location Body Site: Knee Mental Status/Objective Patient Orientation: Person, Place, Time, Situation Current Glasses/Contacts: Yes Hearing Aids: No Dentures/Partials: No Hand Dominance: Right Upper Extremity ROM BUE ROM WFLS Upper Extremity Coordination INTACT Upper Extremity Sensation INTACT Upper Extremity Strength WFLs +4/5 BUE grossly ADL-Treatment Eating (QC): 6 Oral Hygiene (QC): 5 (sitting) Shower/Bathe Self (QC): 88 Upper Body Dressing (QC): 5 Lower Body Dressing (QC): 4 On/Off Footwear (QC): 3 Toileting Hygiene (QC): 5 Education OT Patient Education: Correct positioning, Modified ADL techniques, Progress toward Goal/Update tx plan, Purpose of tx/functional activities, Reviewed preca utions, Rehab process, Safety issues, Transfer techniques, Use of adapted equipment Teaching Recipient: Patient Teaching Methods: Demonstration Response to Teaching: Verbalize Understanding, Reinforcement Needed OT Group Home Goals Reel Repairer Goals Shower/Bathe Self (QC): 5 Upper Body Dressing (QC): 6 Lower Body Dressing (QC): 6 On/Off Footwear (QC): 6 1=Demonstrate adherence to instructed precautions during ADL tasks. 2=Patient will verbalize/demonstrate understanding of assistive devices/modifications for ADL. 3=Patient will improve strength/tolerance for activity to enable patient to perform ADL's. OT Education/Plan Problem List/Assessment Assessment: Decreased Activ Tolerance, Impaired Self-Care Skills Discharge Recommendations Plan/Recommendations: Continue POC Treatment Plan/Plan of Care Treatment,Training & Education: Yes Patient would benefit from OT for education, treatment and training to promote independence in ADL's, mobility, safety and/or upper extremity function for ADL's. Plan of Care: ADL Retraining, Functional Mobility, Group Exercise/Act as Ind, UE Funct Exercise/Act Treatment Duration: May 19, 2023 Frequency: 3 times per week (3-5 times per week) Estimated Hrs Per Day: .25 hour per day Rehab Potential: Good all needs met Time Start Time: 10:30 Stop Time: 10:50 DATE: May 15, 2023 Total Time Billed (hr/min): 20 Billed Treatment Time EVM 20 min LINDA MENDOZA OT May 15, 2023 12:52
--- NOTE | 2023-05-15 13:09 | Physical Therapy Daily Note ---
PT Daily Note-Current Subjective Patient is slurring her speech. She reports it's from the pain medication. RN notified. Pain Numeric Pain Scale: 8 Location: Right Location Body Site: Knee Pain Description: Acute Section J - Health Conditions 1. Rarely or not at all 2. Occasionally 3. Frequently 4. Almost constantly 8. Unable to answer Pain Effect on Sleep: 2 Pain Interference with Therapy: 2 Pain Interference w/Day-to-Day: 2 Mental Status Patient Orientation: Normal For Age Transfers SCALE: Activities may be completed with or without assistive devices. 6-Fpvpwkzpuu-hegwoix completes the activity by him/herself with no assistance from a helper. 5-Set-up or Clean-up Assistance-helper sets up or cleans up; patient completes activity. [place] assists only prior to or following the activity. 4-Supervision or Touching Assistance-helper provides verbal cues and/or touching/steadying and/or contact guard assistance as patient completes activity. Assistance may be provided throughout the activity or intermittently. 3-Partial/Moderate Assistance-helper does LESS THAN HALF the effort. [place] lifts, holds or supports trunk or limbs, but provides less than half the effort. 2-Substantial/Maximal Assistance-helper does MORE THAN HALF the effort. [place] lifts or holds trunk or limbs and provides more than half the effort. 7-Dfkopfnil-acleni does ALL the effort. Patient does none of the effort to complete the activity. Or, the assistance of 2 or more helpers is required for the patient to complete the activity. If activity was not attempted, code reason: 7-Patient Refused. 9-Not Applicable-not attempted and the patient did not perform the activity before the current illness, exacerbation or injury. 10-Not Attempted due to Environmental Limitations-(lack of equipment, weather restraints, etc.). 88-Not Attempted due to Medical Conditions or Safety Concerns. Weight Bearing Right Lower Extremity: Right Weight Bearing/Tolerated Left Lower Extremity: Left Full Weight Bearing Exercises Supine Ex: Ankle pumps, Quad Set, Heel Slides, Straight leg raise Supine Reps: 15 Assessment Patient not safe for OOB activity due to pain medication and patient feeling lethargic. RN is aware. PT to increase activity as tolerated by patient. PT Senior Care Goals Senior Care Goals PT Data Modeler Goals Time Frame: May 24, 2023 Roll Left & Right (QC): 6 Sit to Lying (QC): 6 Lying-Sitting on Side/Bed(QC): 6 Sit to Stand (QC): 6 Chair/Hmr-xr-Lfrht Xfer(QC): 6 Toilet Transfer (QC): 6 Walk 10 feet (QC): 6 Walk 50ft with 2 Turns (QC): 6 Walk 150 ft (QC): 6 PT Plan Treatment/Plan Treatment Plan: Continue Plan of Care Treatment Plan: Education, Functional Activity Jahaira, Functional Strength, Gait, Safety, Therapeutic Exercise, Transfers Treatment Duration: May 24, 2023 Frequency: 11 times per week Estimated Hrs Per Day: .5 hour per day Patient and/or Family Agrees t: Yes Time Time In: 1245 Time Out: 1300 DATE: May 15, 2023 Total Billed Treatment Time: 15 Total Billed Treatment 1 visit EX 15 min NICCI VALDEZ PT May 15, 2023 13:09
--- NOTE | 2023-05-15 13:37 | Anesthesia-Regional Post-Op ---
Regional Patient Condition Mental Status: Alert, Oriented x3 Circulation: Same as Pre-Op Headache: Absent Sensation: Full Recovery Motor Block: Absent Post Op Complications Complications None Follow Up Care/Instructions Patient Instructions None needed. Anesthesia/Patient Condition Patient is doing well. She is having knee pain, which is to be expected, and nausea associated with her pain medications. She has stable vital signs, no apparent adverse anesthesia problems. No complications reported per nursing. MARY ENRIQUEZ DO May 15, 2023 13:37
[2023-05-15 16:10] VITALS: BP 126/73
[2023-05-15] MEDS: ACETAMINOPHEN 500 MG TABLET PO PRN (18:06)
[2023-05-15 19:27] VITALS: BP 150/78
[2023-05-15 23:37] VITALS: BP 141/71
[2023-05-16] MEDS: ACETAMINOPHEN 500 MG TABLET PO PRN ×2 (00:33→08:35)
[2023-05-16 03:27] VITALS: BP 115/60
[2023-05-16 05:45] LABS: BASOPHILS % (AUTO) 0 % (0-10); EOSINOPHILS % (AUTO) 0 % (0-10); HEMATOCRIT 38 % (35-52); HEMOGLOBIN 12.3 g/dL (11.5-16.0); LYMPHOCYTES # (AUTO) 1.5 10^3/uL (1.0-4.0); LYMPHOCYTES % (AUTO) 16 % (12-44); MEAN CORPUSCULAR HEMOGLOBIN 28 pg (25-34); MEAN CORPUSCULAR HGB CONC 33 g/dL (32-36); MEAN CORPUSCULAR VOLUME 85 fL (80-99); MEAN PLATELET VOLUME 10.7 fL (9.0-12.2); MONOCYTES # (AUTO) 1.1 10^3/uL (0.0-1.0); MONOCYTES % (AUTO) 12 % (0-12); NEUTROPHILS # (AUTO) 6.4 10^3/uL (1.8-7.8); NEUTROPHILS % (AUTO) 71 % (42-75); PLATELET COUNT 205 10^3/uL (130-400); WHITE BLOOD COUNT 9.1 10^3/uL (4.3-11.0)
[2023-05-16] MEDS: SUCRALFATE 1 GM (CARAFATE) TAB PO SCH ×2 (06:12→10:43)
[2023-05-16] MEDS: MULTIVIT W/MINERALS TAB (THERAGRAN M) PO SCH (06:12)
[2023-05-16 06:55] LABS: ALBUMIN 3.7 GM/DL (3.2-4.5); POTASSIUM 3.9 MMOL/L (3.6-5.0)
[2023-05-16 06:57] LABS: CALCIUM 9.4 MG/DL (8.5-10.1)
[2023-05-16 06:58] LABS: TOTAL PROTEIN 6.5 GM/DL (6.4-8.2)
[2023-05-16 07:00] LABS: BILIRUBIN,TOTAL 0.6 MG/DL (0.1-1.0)
[2023-05-16 07:01] LABS: CREATININE SERUM 0.71 MG/DL (0.60-1.30)
[2023-05-16] MEDS: NS IV 1000 ML 1,000 ML IV SCH (07:28)
[2023-05-16 08:00] VITALS: BP 121/75
--- NOTE | 2023-05-16 08:10 | Physical Therapy Daily Note ---
PT Daily Note-Current Subjective Patient agrees to PT. She reports she hasn't had pain medication since yesterday. RN confirms. Pain Numeric Pain Scale: 6 Location: Right Location Body Site: Knee Pain Description: Acute Section J - Health Conditions 1. Rarely or not at all 2. Occasionally 3. Frequently 4. Almost constantly 8. Unable to answer Pain Effect on Sleep: 1 Pain Interference with Therapy: 1 Pain Interference w/Day-to-Day: 1 Mental Status Patient Orientation: Normal For Age Transfers SCALE: Activities may be completed with or without assistive devices. 1-Odjqpsoykx-onstjmx completes the activity by him/herself with no assistance from a helper. 5-Set-up or Clean-up Assistance-helper sets up or cleans up; patient completes activity. [place] assists only prior to or following the activity. 4-Supervision or Touching Assistance-helper provides verbal cues and/or touching/steadying and/or contact guard assistance as patient completes activity. Assistance may be provided throughout the activity or intermittently. 3-Partial/Moderate Assistance-helper does LESS THAN HALF the effort. [place] lifts, holds or supports trunk or limbs, but provides less than half the effort. 2-Substantial/Maximal Assistance-helper does MORE THAN HALF the effort. [place] lifts or holds trunk or limbs and provides more than half the effort. 2-Nsukhbfoc-mrvgez does ALL the effort. Patient does none of the effort to complete the activity. Or, the assistance of 2 or more helpers is required for the patient to complete the activity. If activity was not attempted, code reason: 7-Patient Refused. 9-Not Applicable-not attempted and the patient did not perform the activity before the current illness, exacerbation or injury. 10-Not Attempted due to Environmental Limitations-(lack of equipment, weather restraints, etc.). 88-Not Attempted due to Medical Conditions or Safety Concerns. Lying to Sitting/Side of Bed(Q: 6 Sit to Stand (QC): 6 Chair/Wod-pi-Xfuzj Xfer(QC): 6 Weight Bearing Right Lower Extremity: Right Weight Bearing/Tolerated Left Lower Extremity: Left Full Weight Bearing Gait Training Distance: 300' Walk 10 feet (QC): 6 Walk 50 ft with 2 Turns(QC): 6 Walk 150 ft (QC): 6 Gait Assistive Device: FWW steady reciprocal pattern Exercises Supine Ex: Ankle pumps, Quad Set, Heel Slides, Straight leg raise Supine Reps: 15 Seated Therapy Exercises: Long arc quads Seated Reps: 15 Assessment Patient improving with treatment plan and report compliance with exercise program. Patient AROM right knee flexion 80 degrees in sit. Patient educated on importance of performing HEP PRN and to ambulate PRN. Patient voices understanding. Patient to dismiss to home on this date. PT Usp Goals Jelly Filter Tender Goals PT Usp Goals Time Frame: May 24, 2023 Roll Left & Right (QC): 6 Sit to Lying (QC): 6 Lying-Sitting on Side/Bed(QC): 6 Sit to Stand (QC): 6 Chair/Ump-vt-Ghaoz Xfer(QC): 6 Toilet Transfer (QC): 6 Walk 10 feet (QC): 6 Walk 50ft with 2 Turns (QC): 6 Walk 150 ft (QC): 6 PT Plan Treatment/Plan Treatment Plan: Continue Plan of Care Treatment Plan: Education, Functional Activity Jahaira, Functional Strength, Gait, Safety, Therapeutic Exercise, Transfers Treatment Duration: May 24, 2023 Frequency: 11 times per week Estimated Hrs Per Day: .5 hour per day Patient and/or Family Agrees t: Yes Time Time In: 710 Time Out: 733 DATE: May 16, 2023 Total Billed Treatment Time: 23 Total Billed Treatment 1 visit EX 13 min GT 10 min NICCI VALDEZ PT May 16, 2023 08:10
[2023-05-16] MEDS: CELECOXIB 100 MG CAPSULE PO SCH (08:34)
[2023-05-16] MEDS: ASPIRIN enteric coated 81MG TABLET PO SCH (08:34)
[2023-05-16] MEDS: PANTOPRAZOLE 20 MG TABLET (PROTONIX) PO SCH (08:34)
--- NOTE | 2023-05-16 11:58 | Progress Note ---
Subjective Date Seen by a Provider: May 16, 2023 Time Seen by a Provider: 12:00 Subjective/Events-last exam Doing well Labs stable Ready for DC Review of Systems General: Fatigue Musculoskeletal: leg pain Objective Exam Last Set of Vital Signs Vital Signs Date Time Temp Pulse Resp B/P (MAP) Pulse Ox O2 Delivery O2 Flow Rate FiO2 05/16/23 08:00 Room Air 05/16/23 08:00 36.4 108 18 121/75 (90) 95 Capillary Refill : Less Than 3 Seconds I&O Intake and Output 05/16/23 00:00 Intake Total 2020 ml Balance 2020 ml Intake Oral 2020 ml # Voids 11 General: Alert, Oriented X3, Cooperative, No Acute Distress Lungs: Clear to Auscultation, Normal Air Movement Heart: Regular Rate, Normal S1, Normal S2, No Murmurs Psych/Mental Status: Mental Status NL, Mood NL Results Lab Laboratory Tests 05/16/23 05:00: White Blood Count 9.1, Red Blood Count 4.48, Hemoglobin 12.3, Hematocrit 38, Mean Corpuscular Volume 85, Mean Corpuscular Hemoglobin 28, Mean Corpuscular Hemoglobin Concent 33, Red Cell Distribution Width 12.8, Platelet Count 205, Mean Platelet Volume 10.7, Immature Granulocyte % (Auto) 0, Neutrophils (%) (Auto) 71, Lymphocytes (%) (Auto) 16, Monocytes (%) (Auto) 12, Eosinophils (%) (Auto) 0, Basophils (%) (Auto) 0, Neutrophils # (Auto) 6.4, Lymphocytes # (Auto) 1.5, Monocytes # (Auto) 1.1H, Eosinophils # (Auto) 0.0, Basophils # (Auto) 0.0, Immature Granulocyte # (Auto) 0.0 05/16/23 05:10: Sodium Level 139, Potassium Level 3.9, Chloride Level 107, Carbon Dioxide Level 23, Anion Gap 9, Blood Urea Nitrogen 9, Creatinine 0.71, Estimat Glomerular Filtration Rate 98, BUN/Creatinine Ratio 13, Glucose Level 186H, Calcium Level 9.4, Corrected Calcium 9.6, Total Bilirubin 0.6, Aspartate Amino Transf (AST/SGOT) 23, Alanine Aminotransferase (ALT/SGPT) 18, Alkaline Phosphatase 48, Total Protein 6.5, Albumin 3.7 Assessment/Plan Assessment/Plan Assess & Plan/Chief Complaint DC home SANDY HUYNH DO May 16, 2023 11:58
[2023-05-16] MEDS ORDERED: ASPI-1238 PO (12:22)
[2023-05-16] MEDS ORDERED: TRM50T PO (12:22)
--- NOTE | 2023-05-16 12:25 | Discharge Summary ---
Discharge Summary Hospital Course Hospital Course Date of Admission: 05/14/23 Admission Diagnosis : Right Knee Primary Osteoarthritis Family Physician/Provider: Beti Jordan MD Date of Discharge: 05/16/23 Discharge Diagnosis: [Right Knee Primary Osteoarthritis s/p TKA ] Hospital Course: [On 05/14/23, patient underwent right total knee arthroplasty. Tolerated the procedure well and was transferred to the regular floor. On the day of surgery, began mechanical DVT prophylaxis and started to work with therapy. On POD #1, made good progress with therapy and began chemical DVT prophylaxis. On POD #2, continued to make progress with therapy and home health therapy arrangements were made. Patient was ready for discharge home. ] Labs and Pending Lab Test: Laboratory Tests 05/16/23 05:00: White Blood Count 9.1, Red Blood Count 4.48, Hemoglobin 12.3, Hematocrit 38, Mean Corpuscular Volume 85, Mean Corpuscular Hemoglobin 28, Mean Corpuscular Hemoglobin Concent 33, Red Cell Distribution Width 12.8, Platelet Count 205, Mean Platelet Volume 10.7, Immature Granulocyte % (Auto) 0, Neutrophils (%) (Auto) 71, Lymphocytes (%) (Auto) 16, Monocytes (%) (Auto) 12, Eosinophils (%) (Auto) 0, Basophils (%) (Auto) 0, Neutrophils # (Auto) 6.4, Lymphocytes # (Auto) 1.5, Monocytes # (Auto) 1.1H, Eosinophils # (Auto) 0.0, Basophils # (Auto) 0.0, Immature Granulocyte # (Auto) 0.0 05/16/23 05:10: Sodium Level 139, Potassium Level 3.9, Chloride Level 107, Carbon Dioxide Level 23, Anion Gap 9, Blood Urea Nitrogen 9, Creatinine 0.71, Estimat Glomerular Filtration Rate 98, BUN/Creatinine Ratio 13, Glucose Level 186H, Calcium Level 9.4, Corrected Calcium 9.6, Total Bilirubin 0.6, Aspartate Amino Transf (AST/SGOT) 23, Alanine Aminotransferase (ALT/SGPT) 18, Alkaline Phosphatase 48, Total Protein 6.5, Albumin 3.7 Home Meds Active Tramadol HCl 50 Mg Tablet 50 Mg PO Q4H PRN 7 Days Aspirin EC (Aspirin) 81 Mg Tablet.dr 81 Mg PO BID WITH MEALS 14 Days Reported [Curcumin] 10 Drop PO DAILY Premarin (Estrogens Conjugated) 0.625 Mg/Gram Cr 0.5 Gm VG TWICE WEEKLY Glucosamine Chondroitin Cap (Gluc HCl/Csa/Ruddy Hy/Hyalur AC) 375 Mg-300 Mg-50 Mg-2 Mg Capsule 2 Each PO DAILY Buspirone HCl 10 Mg Tablet 10 Mg PO BID PRN Flaxseed Oil 1,000 Mg Capsule 1,000 Mg PO DAILY Fish Oil 1,000 mg Softgel ([place]-3/Dha/Epa/Fish Oil) Unknown Strength Capsule 2 Ea PO DAILY Vilazodone HCl 40 Mg Tablet 40 Mg PO DAILY Assessment/Pt Instructions WBAT on right leg; use walker for assistance. Dry dressing daily. Outpatient therapy ordered for ROM/strengthening/gait training. F/U 2 weeks from date of surgery. Discharge Physical Examination Vital Signs Vital Signs Date Time Temp Pulse Resp B/P (MAP) Pulse Ox O2 Delivery O2 Flow Rate FiO2 05/16/23 08:00 Room Air 05/16/23 08:00 36.4 108 18 121/75 (90) 95 Extremity: Other (R Knee: Incision C/D/I, +DF of ankle, no s/s of DVT) Allergies: Coded Allergies: amoxicillin (Verified Allergy, Unknown, HIVES/SWELLING, 05/07/23) Discharge Summary Date of Admission Date of Discharge ROSEMARY ROSS MD May 16, 2023 12:25
[2023-05-16 12:58] VITALS: BP 120/76
== END 2023-05-16 13:45 | disposition home or self-care (01) ==
LOC: SDC 11:14 → 4TH 16:17 → SDC 05-16 13:45
PROVIDERS: ATTEND Orthopaedic Surgery
DX: M17.11 Unilateral primary osteoarthritis, right knee (principal); R11.2 Nausea with vomiting, unspecified; E87.1 Hypo-osmolality and hyponatremia; K21.9 Gastro-esophageal reflux disease without esophagitis; F32.9 Major depressive disorder, single episode, unspecified
CPT/HCPCS: 27447; 73560; 97110; 97116; 97162; C1713 ×2; C1776 ×3; 36415; 80053; 85025

== ENCOUNTER → 2023-05-19 | Outpatient (RCR) | payer OTHER ==
[~2023-05-19] MED LIST changes: +ASPI-1238 PO; +BUSP10TA95 PO; +CURCUMIN PO; +GLUC1CAP14 PO; +TRM50T PO
== END | disposition home or self-care (01) ==
PROVIDERS: ATTEND Orthopaedic Surgery
DX: Z47.1 Aftercare following joint replacement surgery (principal); Z96.651 Presence of right artificial knee joint

== ENCOUNTER → 2023-05-22 | Outpatient (CLI) | payer OTHER ==
[2023-05-22 12:55] LABS: BASOPHILS # (AUTO) 0.1 10^3/uL (0.0-0.1); BASOPHILS % (AUTO) 1 % (0-10); EOSINOPHILS # (AUTO) 0.1 10^3/uL (0.0-0.3); EOSINOPHILS % (AUTO) 1 % (0-10); HEMATOCRIT 39 % (35-52); HEMOGLOBIN 12.6 g/dL (11.5-16.0); LYMPHOCYTES # (AUTO) 2.4 10^3/uL (1.0-4.0); LYMPHOCYTES % (AUTO) 27 % (12-44); MEAN CORPUSCULAR HEMOGLOBIN 28 pg (25-34); MEAN CORPUSCULAR HGB CONC 32 g/dL (32-36); MEAN CORPUSCULAR VOLUME 86 fL (80-99); MEAN PLATELET VOLUME 9.6 fL (9.0-12.2); MONOCYTES # (AUTO) 0.6 10^3/uL (0.0-1.0); MONOCYTES % (AUTO) 7 % (0-12); NEUTROPHILS # (AUTO) 5.6 10^3/uL (1.8-7.8); NEUTROPHILS % (AUTO) 64 % (42-75); PLATELET COUNT 325 10^3/uL (130-400); WHITE BLOOD COUNT 8.8 10^3/uL (4.3-11.0)
[2023-05-22 13:06] LABS: ALBUMIN 4.2 GM/DL (3.2-4.5)
[2023-05-22 13:08] LABS: CALCIUM 9.7 MG/DL (8.5-10.1)
[2023-05-22 13:09] LABS: TOTAL PROTEIN 8.2 GM/DL (6.4-8.2)
[2023-05-22 13:10] LABS: BILIRUBIN,TOTAL 0.5 MG/DL (0.1-1.0)
[2023-05-22 13:12] LABS: CREATININE SERUM 0.77 MG/DL (0.60-1.30)
== END ==
LOC: LAB 12:42
PROVIDERS: ATTEND Physician Assistant
DX: R73.09 Other abnormal glucose (principal); Z96.651 Presence of right artificial knee joint
CPT/HCPCS: 36415; 80053; 83036; 85025

== ENCOUNTER → 2023-05-28 | Outpatient (CLI) | payer OTHER | LOC: ORTHO 08:25 | PROVIDERS: ATTEND Orthopaedic Surgery | DX: Z47.89 Encounter for other orthopedic aftercare (principal); M17.11 Unilateral primary osteoarthritis, right knee; Z96.651 Presence of right artificial knee joint ==

== ENCOUNTER 2023-06-18 11:22 | Outpatient (RCR) | payer OTHER | END 2023-06-19 | disposition home or self-care (01) | PROVIDERS: ATTEND Orthopaedic Surgery | DX: Z47.1 Aftercare following joint replacement surgery (principal); Z96.651 Presence of right artificial knee joint ==

== ENCOUNTER 2023-06-20 10:13 | Outpatient (RCR) | payer OTHER | END 2023-06-27 08:38 | disposition home or self-care (01) | PROVIDERS: ATTEND Orthopaedic Surgery | DX: Z47.1 Aftercare following joint replacement surgery (principal); Z96.651 Presence of right artificial knee joint ==

== ENCOUNTER → 2023-07-01 | Outpatient (CLI) | payer OTHER ==
--- NOTE | 2023-07-01 11:15 | Diagnostic Imaging Report ---
INDICATION: Postop follow-up, right knee arthroplasty AP and lateral views the right knee are obtained. COMPARISON: 05/14/2023 Well aligned right knee prosthesis is noted with no sign of fracture or device loosening. There is no acute abnormality. IMPRESSION: Well aligned right knee prosthesis with no acute abnormality. Dictated by: Dictated on workstation # [id number]
== END ==
LOC: ORTHO 08:23
PROVIDERS: ATTEND Orthopaedic Surgery
DX: Z09 Encounter for follow-up examination after completed treatment for conditions other than malignant neoplasm (principal); Z96.651 Presence of right artificial knee joint
CPT/HCPCS: 73560

== ENCOUNTER → 2023-08-12 | Outpatient (CLI) | payer OTHER | LOC: ORTHO 15:32 | PROVIDERS: ATTEND Orthopaedic Surgery | DX: Z47.89 Encounter for other orthopedic aftercare (principal) ==

== ENCOUNTER 2023-09-10 16:01 | Outpatient (RCR) | payer OTHER | END 2023-09-18 | disposition home or self-care (01) | PROVIDERS: ATTEND Family Medicine | DX: M54.50 Low back pain, unspecified (principal) ==